=== PATIENT | female | born 1970 | race Caucasian/White ===

== ENCOUNTER → 2021-09-06 13:47 | Outpatient (CLI) | payer MEDICAID, SELFPAY | PROVIDERS: PCP Family Medicine; Visit Provider Specialist | DX: G47.33 Obstructive sleep apnea (adult) (pediatric) (principal) | CPT/HCPCS: G0399 ==

== ENCOUNTER → 2022-01-20 20:02 | Outpatient (CLI) | payer MEDICARE, MEDICAID, SELFPAY | PROVIDERS: PCP Family Medicine; Visit Provider Nurse Practitioner Family | DX: G47.33 Obstructive sleep apnea (adult) (pediatric) (principal); R09.02 Hypoxemia | CPT/HCPCS: 95811 ==

== ENCOUNTER 2024-01-08 12:38 | Outpatient (CLI) | payer MEDICARE, MEDICAID, SELFPAY ==
--- NOTE | 2024-01-08 12:47 | XR_ITS ---
FINAL REPORT CLINICAL HISTORY: Foot pain FINDINGS: RIGHT FOOT 3 views of the right foot were obtained. There is no acute fracture or dislocation. There is a minimal plantar spur. Visualized joint spaces are normally aligned. Soft tissues are unremarkable. IMPRESSION: No acute bony abnormality. Reviewed, Interpreted and Dictated by Constantino Merlos MD Transcribed by Erin Valle Authenticated and [facility]
--- NOTE | 2024-01-08 12:47 | XR_ITS ---
FINAL REPORT CLINICAL HISTORY: Foot Pain FINDINGS: LEFT FOOT Three views of the left foot demonstrate no acute fracture or dislocation. The visualized joint spaces are normally aligned. There is a minimal plantar spur. The soft tissues are unremarkable. IMPRESSION: No acute bony abnormality. Reviewed, Interpreted and Dictated by Constantino Merlos MD Transcribed by Erin Valle Authenticated and [facility]
== END 2024-01-08 23:59 ==
LOC: RAD 12:43
PROVIDERS: PCP Family Medicine; Visit Provider Podiatrist
DX: M79.671 Pain in right foot (principal); M79.672 Pain in left foot
CPT/HCPCS: 73630

== ENCOUNTER 2024-03-07 11:50 | Outpatient (CLI) | payer MEDICARE, MEDICAID, SELFPAY ==
[2024-03-07] VITALS (7 sets, daily range): BP systolic 98–155; BP diastolic 50–101; PULSE 47–86; RESP 18–22; O2SAT 92–95; BMI 50.5
--- NOTE | 2024-03-07 11:50 | CT_ITS ---
APPROVED REPORT Chain Splitter: CLINICAL INDICATION Chest Pain TECHNIQUE Image Acquisition: A 128 slice MDCT scanner (ContaAzula View) was used for data acquisition. A noncontrast coronary calcium scan was performed. A CT attenuation threshold of 130 Hounsfield units (HU) was used for the detection of calcium in contiguous voxels of 1 sq mm in area to be counted as individual lesions. Bolus tracking in the ascending aorta with a threshold of 180 HU was performed. Immediately afterwards, ECG synchronized cardiac CT was then performed from the cardiac base to apex using retrospective gating with ECG tube current modulation. A total of 85 mL of Isovue 370 mg/mL contrast medium was administered at 5 mL/sec followed by a saline flush using a biphasic injection protocol. A tube voltage of 120 KVp was used. The patient received the following medications prior to the cardiac CT. 75 mg of oral metoprolol 15 mg of oral ivabradine 0.8 mg of sublingual nitroglycerin The average heart rate at the time of acquisition was 52 bpm and regular. Image Reconstruction Transaxial images were reconstructed at 0.67 mm slide thickness. Data was reviewed interactively on an advanced workstation capable of 2 and 3-dimensional displays in all conventional reconstruction formats, including multiplanar reformations, maximum intensity projections, curved multiplanar reformations, and volume rendered reconstructions. When applicable, selected routine images describing the relevant coronary anatomy and pathology were saved and sent to PACS. Complications None Technical Quality Overall image quality was suboptimal. Coronary artery opacification was suboptimal. Total DLP (Dose-Length Product) is 2750.5 mGy-cm. The reported value represents the total of one or more individual components during the CT acquisition of this date and at this time, and as such, the same value may appear in more than one CT report depending on the interpreting/reporting physicians. COMPARISON None FINDINGS CT Coronary Calcium Scoring LMA (Left Main Artery) = 0 LAD (Left Anterior Descending) = 9 LCX (Left Coronary Circumflex) = 0 RCA (Right Coronary Artery) = 0 Total Calcium Score = 9 using the AJ-130 method. The observed calcium score of 9 is at 88th percentile for subjects of the same age, sex, and race/ethnicity. The interpretation of the calcium heart score is based on the following continuum*: 0 = no calcified plaque detected (risk of coronary artery disease is very low ??? less than 5%) 1-10 = calcium detected in extremely minimal levels (risk of coronary diseases is still low ??? less than 10%) 11-100 = mild levels of plaque detected with certainty (mild or minimal narrowing of heart arteries is likely) 101-400 = definite,at least moderate levels of plaque detected (relatively high risk of a heart attack within 3-5 years) >401-999 = extensive levels of plaque detected (high risk of heart attack, high levels of vascular disease are present, high likelihood of at least one significant coronary narrowing) *The calcium heart score quantifies the burden of coronary calcification/plaque in the coronary arteries. The calcium heart score is not able to evaluate the presence or burden of non-calcified (i.e. soft) plaque. There is no identifiable calcification in the aortic valve, mitral annulus or mitral valve, pericardium, or myocardium. Coronary CT Angiography The coronary arterial system is right dominant. Quantitative Stenosis Grading: Left Main (LM): The left main originates normally from the left sinus of Valsalva. The LM bifurcates into the left anterior descending artery and left circumflex artery. The LM is patent with no evidence of atherosclerosis. Left Anterior Descending (LAD) and Diagonal Branches: The LAD gives off 2 diagonal branches. There is calcification noted in the proximal LAD segment, but no evidence of luminal stenosis. There is no evidence of LAD-myocardial bridge. Left Circumflex (LCX) and Obtuse Marginals (OM): The LCX gives off 1 Obtuse Marginal (OM) branch. The LCX and its branches are patent with no evidence of atherosclerosis. Right Coronary Artery (RCA): The RCA originates normally from the right sinus of Valsalva. The RCA gives off a posterior descending artery (PDA) and posterolateral (PL) branches. The RCA and its branches are patent with no evidence of atherosclerosis. Non-Coronary Cardiac Findings: Analysis of the left ventricular (LV) structure and function was performed after 3-D reconstruction of the LV from axial images, with user-corrected automatic contouring for assessment of LV volumes and user-defined reconstruction from oblique planes for measurement of 3-D cardiac structure and function. -The left ventricle systolic function is normal. -There is no left atrial appendage filling defect. Two right pulmonary veins and two left pulmonary veins drain normally into the left atrium. -No pericardial thickening or calcification. -Central and branch pulmonary arteries in the [id number] are unremarkable. -Thoracic aorta within the visualized thoracic aortic-branches in the [id number] is unremarkable. Extracardiac Structures No significant extra-cardiac findings. Note, however, that this study is focused on the cardiac findings. IMPRESSION -Suboptimal diagnostic quality due to inadequate IV contrast opacification -Coronary calcification with an Agatston score = 9 using the AJ-130 method. -The observed calcium score of 9 is at 88th percentile for subjects of the same age, sex, and race/ethnicity. -No evidence of significant flow-limiting atherosclerosis of the coronary arteries. -CAD-RADS 1. Management recommendations per ACC/AHA guidelines*, as clinically appropriate. *Recommendations: CAD RADS 0: Reassurance. Consider non-atherosclerotic causes of chest pain. CAD RADS 1: Consider non-atherosclerotic causes of chest pain. Consider preventive therapy and risk factor modification. CAD RADS 2: Consider non-atherosclerotic causes of chest pain. Consider preventive therapy and risk factor modification, particularly for patients with nonobstructive plaque in multiple segments. CAD RADS 3: Consider further functional testing. Consider symptom-guided anti-ischemic and preventive pharmacotherapy as well as risk factor modification per published guideline statements. CAD RADS 4A: Consider further functional testing or invasive coronary angiography with revascularization per published guideline statements. Consider symptom-guided anti-ischemic and preventive pharmacotherapy as well as risk factor modification per published guideline statements. CAD RADS 4B: Invasive coronary angiography recommended with revascularization per published guideline statements. Consider symptom-guided anti-ischemic and preventive pharmacotherapy as well as risk factor modification per published guideline statements. CAD RADS 5: Consider invasive angiography and/or viability assessment with revascularization per published guideline statements. Consider symptom-guided anti-ischemic and preventive pharmacotherapy as well as risk factor modification per published guideline statements. CRITICAL RESULT None COMMUNICATION Per this written report The coronary and cardiac findings of this CCTA were reviewed, reported, and signed by Hair Frausto MD (Web Design Intern) Conclusion Electronically signed by : Heidi Frausto MD 03/12/2024 13:05:19
[2024-03-07] MEDS: METOPROLOL TARTRATE 50MG TABLET 50 MG (12:11)
[2024-03-07] MEDS: IVABRADINE HCL 7.5MG TABLET *IVABRADINE+METOPROLOL REGIMINE 15 MG PO (12:11)
[2024-03-07] MEDS: METOPROLOL TARTRATE 25MG TABLET *IVABRADINE+METOPROLOL REGIMINE 25 MG PO (12:11)
[2024-03-07 12:23] LABS: Chloride 110 mmol/L (98-107); Potassium 3.9 mmoL/L (3.5-5.1); Sodium 139 mmol/L (136-145)
[2024-03-07 12:26] LABS: Blood Urea Nitrogen 8 mg/dl (7-17); Creatinine Clearance Estimated 105 mL/min (50-200); Estimated Glomerular Filt Rate 130 ml/min (>60); GFR (African American) 157 ML/MIN (>60)
[2024-03-07 12:27] LABS: Anion Gap 8.9 mEq/L (5-15); Calcium 8.5 mg/dl (8.4-10.2); Carbon Dioxide 24 mmol/L (22.0-30.0); Glucose 212 mg/dl (74-100)
[2024-03-07] MEDS: 0.9 % SODIUM CHLORIDE 50 ML VIAL IV (13:18)
[2024-03-07] MEDS: SODIUM CHLORIDE 0.9% 10ML SYR (RAD ONLY) 10 ML IV (13:18)
[2024-03-07] MEDS: IOPAMIDOL-370 (76%);100ML BOTTLE 85 ML IV (13:18)
[2024-03-07] MEDS: NITROGLYCERIN 0.4MG SL TABLET 0.800000000000000044 MG SL (13:26)
== END 2024-03-07 14:01 | disposition home or self-care (01) ==
PROVIDERS: PCP Family Medicine; Visit Provider Physician Assistant
DX: R06.09 Other forms of dyspnea (principal); R00.2 Palpitations; R94.31 Abnormal electrocardiogram [ECG] [EKG]; Z82.49 Family history of ischemic heart disease and other diseases of the circulatory system; E78.5 Hyperlipidemia, unspecified; I10 Essential (primary) hypertension; G47.33 Obstructive sleep apnea (adult) (pediatric); Z68.43 Body mass index [BMI] 50.0-59.9, adult; Z87.891 Personal history of nicotine dependence; R07.9 Chest pain, unspecified
CPT/HCPCS: 75571; 75574; 80048; 93306; Q9967

== ENCOUNTER 2024-06-03 10:41 | Outpatient (CLI) | payer MEDICARE, MEDICAID, SELFPAY ==
--- NOTE | 2024-06-03 10:45 | US_ITS ---
FINAL REPORT CLINICAL HISTORY: Decreased Pedal Pulses, current smoker, HTN, DM, HLD, bilateral claudication, bilateral rest pain, obesity, rednnes LLE. COMPARISON: None FINDINGS: ANKLE-BRACHIAL PRESSURE INDICES Pressure indices are as follows: RIGHT LOWER EXTREMITY: Ankle-brachial pressure index: 1.15 Comments: Normal LEFT LOWER EXTREMITY: Ankle-brachial pressure index: 1.1 Comments: Normal CONCLUSION: No evidence of significant obstructive peripheral vascular disease of the lower extremities Reviewed, Interpreted and Dictated by Irais Aguiar MD Transcribed by Deidra Streeter Authenticated and [facility]
== END 2024-06-03 23:59 | disposition home or self-care (01) ==
LOC: RT 10:41
PROVIDERS: PCP Family Medicine; Visit Provider Nurse Practitioner
DX: R09.89 Other specified symptoms and signs involving the circulatory and respiratory systems (principal)
CPT/HCPCS: 93923

== ENCOUNTER 2024-09-11 09:59 | Outpatient (CLI) | payer MEDICARE, MEDICAID, SELFPAY | END 2024-09-11 23:59 | disposition home or self-care (01) | LOC: RT 10:01 | PROVIDERS: PCP Family Medicine; Visit Provider Specialist | DX: R06.09 Other forms of dyspnea (principal); G47.34 Idiopathic sleep related nonobstructive alveolar hypoventilation | CPT/HCPCS: 94762 ==

== ENCOUNTER 2024-10-11 08:00 | Outpatient (RCR) | payer MEDICARE, MEDICAID, SELFPAY ==
--- NOTE | 2024-09-05 12:51 | HMH.PTOPWND ---
Rehab Outpt Wound Evaluation Rehab OP Wound Evaluation Start: 09/05/24 11:04 Freq: Status: Active Protocol: Document 09/05/24 12:37 PHOHUY (Rec: 09/05/24 12:51 PHORNE [id number]) E-signed By Raghu Funes, PT Subjective/History History History This is the initial PT eval for Nessa Garcia, 54 yowf who presents with c/o B LE increased edema x ~3-4 yrs overall. She reports edema is consistently worse in the evening and better in the morning after legs are elevated at night. She reports increased tenderness, redness , warmth, and itchiness of the skin throughout B lower legs. She reports PMH of YESSY, HLD, HTN, DM, anxiety, depression, L LE DVTs, OA. She had MARLEY performed which showed no concern for PAD. Subjective Subjective Pain currently 6/10 in B LE, at worst 10/10. Moderate erythema to B lower legs, Mild increased warmth, mild hyperkeratosis, mild lipodermatosclerosis. 3/4 TTP to B lower legs noted. New diagnosis of cancer in past 12 No months? Lymphedema Eval Classification of Lymphedema Secondary Lymphedema Yes: likely CVI Stemmer's sign Stemmer's Sign yes Stage of Lymphedema Lymphedema stages Stage II (Pitting edema, increased fibrosis w/ decreased pitting) Skin Changes Dry Skin Yes Taut, Shiny Skin Yes Hyperkeratosis Yes Redness Yes Discoloration of Skin Yes Other Changes Yes Pain Scale Pain Scale (0-10) 6 Affected Extremities Areas Affected by Lymphedema/Edema Right Lower Extremity,Left Lower Extremity Lower Extremity Measurements Right MTP Measurement (cm) 23.7 Heel Measurement (cm) 32.5 10 cm Proximal to Lateral Malleoli 27.8 Measurement (cm) 20 cm Proximal to Lateral Malleoli 44.1 Measurement (cm) 30 cm Proximal to Lateral Malleoli 44.9 Measurement (cm) 40 cm Proximal to Lateral Malleoli 0 Measurement (cm) 50 cm Proximal to Lateral Malleoli 0 Measurement (cm) 60 cm Proximal to Lateral Malleoli 0 Measurement (cm) Lower Extremity Measurement Total (cm) 173.0 Left MTP Measurement (cm) 23.2 Heel Measurement (cm) 31.7 10 cm Proximal to Lateral Malleoli 29.2 Measurement (cm) 20 cm Proximal to Lateral Malleoli 43.5 Measurement (cm) 30 cm Proximal to Lateral Malleoli 44.2 Measurement (cm) 40 cm Proximal to Lateral Malleoli 0 Measurement (cm) 50 cm Proximal to Lateral Malleoli 0 Measurement (cm) 60 cm Proximal to Lateral Malleoli 0 Measurement (cm) Lower Extremity Measurement Total (cm) 171.8 Manual Lymphatic Drainage Treatment Area MLD Treatment Area Right Lower Extremity,Left Lower Extremity Wound Problems/Impairments Impairments Problems/Impairmments Palpation Tenderness,Impaired Walking,Impaired Standing, Impaired Household Care, Increased Edema,Lymphedema Present,Subjective C/O Pain, Impaired Self Care/Self Management Prognosis Rehab Potential Good Comment Skilled therapy is indicate to reduce overall edema and pain and return pt to PLOF Clinical Impression Consistent with Diagnosis Yes Short Term Goals Number of Weeks 2 Decreased Palpation Tenderness Yes: 12/24 B lower legs Decrease Edema Yes: no pitting edema Decrease Subjective C/O Pain Yes: 02/27 B lower legs Patient to Understand Lymphedema Yes Treatment and Exercises Decrease Girth Measurments by (cm) Yes: B LE total by 3 cm ea Residential Goals Number of Weeks 4 Decreased Palpation Tenderness Yes: 11/23 B lower legs Decrease Lymphedema Yes: No fibrotic edema B LE Decrease Subjective C/O Pain Yes: 12/30 B lower legs Patient to be Ind w/ HEP Yes Patient to Adhere Lymphedema Precautions Yes Decrease Girth Measurments by (cm) Yes: B LE total by 15 cm ea Outpatient Therapy Plan of Care Treatment Plan May Include Therapeutic Exercise Including Home Yes Exercise Program Manual Therapy Techniques Yes Neuromuscular Re-education Yes Therapeutic Activities to Return to Yes Previous Functional/Work Level ADL/Self Care Education Yes Orthotics/Bracing/Splinting Yes Vasopneumatic Compression Pump Yes Manual Lymphatic Drainage Yes Eval/Re-Eval Yes Frequency Times per week 2 Duration Number of Weeks 4 Addendums This patient is a candidate for social No or vocational rehab? Patient/Guardian verbally acknowledges Yes understanding of treatment program and consents to further treatment? Patient/Guardian verbally acknowledges Yes understanding of diagnosis, prognosis and goals for treatment? Eval Complexity PT Charges 81498 - High Complexity PHYSICIAN CERTIFICATION: I certify the specified therapy services for Nessa Jose are required, authorized, and reviewed every 30 days.
--- NOTE | 2024-10-03 16:46 | HMH.RHREAS ---
Rehab Reassessment Rehab OP Re-assessment Start: 09/05/24 11:04 Freq: Status: Active Protocol: Document 10/03/24 16:28 NOREEN (Rec: 10/03/24 16:45 PHORNE [id number]) E-signed By Raghu Funes, PT Rehab Re-assessment Subjective Subjective Pt reports she has significantly less feelings of pain, tenderness, and heaviness in B LE at this time . Objective Objective Notes Circumferential Measurements: R LE total is 159.3 cm total which is -13.7 cm since IE. L LE total is 161.1 cm total which is - 10.7 cm since IE. Pain: 3/10 at worst B LE TTP: 1/ B lower legs. Edema: No pitting edema to Blower legs this date. Skin: Moderate erythema remains to B lower legs. Assessment Progress Assessment Progressing as Expected Assessment Notes Pt has shown significant reduction of B LE edema based on circumferential measurements. She has less pain overall and significantly less tenderness to palpation. She continues to have B LE heaviness at times which limits her mobility somewhat. She continues to need skilled therapy services to reduce overall edema and return to PLOF. Patient goals met ST/5 LT/6 Plan Plan Continue per initial POC. Frequency of Therapy 1-2 x/wk Duration of therapy 4 wks Time and Billing Re-Eval Time 10 Re-Eval Billing Units 0 Charge for PT reassessment? No PHYSICIAN CERTIFICATION: I certify the specified therapy services for Nessa Garcia are required, authorized, and reviewed every 30 days.
== END 2024-10-11 23:59 | disposition home or self-care (01) ==
LOC: PT 08:00
PROVIDERS: Visit Provider Nurse Practitioner
DX: I89.0 Lymphedema, not elsewhere classified (principal)
CPT/HCPCS: 97110; 97140; 97163

== ENCOUNTER → 2024-11-26 11:56 | Outpatient (CLI) | payer MEDICARE, MEDICAID, SELFPAY | LOC: RT 11:57 → SL 12:00 | PROVIDERS: PCP Family Medicine; Visit Provider Specialist | DX: G47.34 Idiopathic sleep related nonobstructive alveolar hypoventilation (principal); G47.33 Obstructive sleep apnea (adult) (pediatric); I10 Essential (primary) hypertension; Z68.43 Body mass index [BMI] 50.0-59.9, adult | CPT/HCPCS: 94762 ==

== ENCOUNTER 2025-02-07 13:38 | Outpatient (CLI) | payer MEDICARE, MEDICAID, SELFPAY ==
--- NOTE | 2025-07-23 13:21 | PC.NURSE ---
NOT ENOUGH DATA ON OVERNIGHT PULSE OX - NO CHARGE
== END 2025-02-07 23:59 | disposition home or self-care (01) ==
LOC: RT 02-10 13:39
PROVIDERS: PCP Specialist; Visit Provider Specialist
DX: G47.34 Idiopathic sleep related nonobstructive alveolar hypoventilation (principal)

== ENCOUNTER 2025-04-09 13:58 | Outpatient (CLI) | payer MEDICARE, MEDICAID, SELFPAY ==
[2025-04-09 14:59] LABS: Basophils # 0.1 K/mm3 (0-0.2); Basophils % 0.7 % (0.1-2.0); Eosinophils # 0.2 Kmm3 (0.0-0.4); Eosinophils % 2.4 % (0.1-12.0); Hematocrit 44.2 % (37.0-47.0); Hemoglobin 14.9 g/dL (12.2-16.2); Immature Granulocytes # 0.03 10^3uL; Immature Granulocytes % 0.3 %; Lymphocytes # 2.9 K/mm3 (0.7-4.5); Lymphocytes % 32.7 % (10-50); Mean Corpuscular HGB Conc 33.7 g/dL (31.8-35.4); Mean Corpuscular Hemoglobin 32.3 pg (27.0-31.2); Mean Corpuscular Volume 95.7 fl (81-99); Mean Platelet Volume 9.9 fl (7.4-10.4); Monocytes # 0.7 K/mm3 (0.1-1.0); Monocytes % 7.3 % (1.7-9.3); Neutrophils # 5.1 K/mm3 (1.8-7.8); Neutrophils % 56.6 % (37.0-80.0); Nucleated Red Blood Cells # 0 10^3/uL; Nucleated Red Blood Cells % 0 %; Platelet Count 186 K/mm3 (142-424); Red Blood Count 4.62 M/mm3 (4.20-5.40); Red Cell Distribution Width 13.5 % (11.5-17.5); Red Cell Distribution Width-SD 47.7 fL; White Blood Count 8.9 K/mm3 (4.8-10.8)
[2025-04-09 15:31] LABS: Albumin Level 4.2 g/dl (3.5-5.0)
[2025-04-09 15:32] LABS: Chloride 108 mmol/L (98-107); Potassium 4.5 mmoL/L (3.5-5.1); Sodium 139 mmol/L (136-145)
[2025-04-09 15:34] LABS: Alanine Aminotransferase 51 U/L (12-78); Anion Gap 10.5 mEq/L (5-15); Aspartate Amino Transferase 41 U/L (14-36); Bilirubin,Unconjugated 0.3 mg/dL (0.0-1.1); Blood Urea Nitrogen 10 mg/dl (7-17); Carbon Dioxide 25 mmol/L (22.0-30.0); Estimated Glomerular Filt Rate 88 ml/min (>60); GFR (African American) 106 ML/MIN (>60); Total Protein,Serum 6.6 g/dl (6.3-8.2)
[2025-04-09 15:35] LABS: Alkaline Phosphatase 63 U/L (38-126); Bilirubin,Direct 0.2 mg/dl (0.0-0.4); Bilirubin,Indirect 0.3 mg/dL (0.0-0.9); Bilirubin,Total 0.5 mg/dl (0.2-1.3); Calcium 9.3 mg/dl (8.4-10.2); Chol/HDL Ratio 3.5 (1-3.5); Cholesterol 122 mg/dl (140-200); Glucose 261 mg/dl (74-100); HDL Cholesterol 35 mg/dl (40-60); Magnesium 1.6 mg/dl (1.6-2.3); Triglycerides 150 mg/dl (30-150); VLDL Cholesterol 30 mg/dL (0-40)
[2025-04-09 15:47] LABS: Direct LDL Cholesterol 66.21 mg/dL (100-129)
[2025-04-09 15:53] LABS: Free T4 (Free Thyroxine) 0.78 ng/dl (0.78-2.19)
== END 2025-04-09 23:59 | disposition home or self-care (01) ==
LOC: LAB 13:59
PROVIDERS: PCP Family Medicine; Visit Provider Nurse Practitioner Family
DX: I10 Essential (primary) hypertension (principal); Z82.49 Family history of ischemic heart disease and other diseases of the circulatory system
CPT/HCPCS: 36415; 80048; 80061; 80076; 83735; 84439; 84443; 85025

== ENCOUNTER 2025-04-28 13:29 | Outpatient (CLI) | payer MEDICARE, MEDICAID, SELFPAY ==
--- OUTSIDE RECORDS SUMMARY | 2025-04-03 13:20 | XMS_ITS | Encounter Summary ---
Author Organization [facility] Address [address] [place] [address] Care Team Providers Care [employer] Cover[employer] Supervisor Name Role Phone Jerseyro Alessandra Jones Primary Care Provider [phone] Reason for Referral * Consultation (Routine) - Authorized Specialty Diagnoses / Procedures Referred By Edmundo lindo Referred To Contact Diagnoses Type 2 diabetes mellitus with hyperglycemia, with long-term current use of insulin (CMS/HCC) Bernadette Ledesma APRN [address] [facility] [address] [place] [address] Phone: tel: fax: Referral ID Status Reason Start Date Expiration Date V isits Requested Visits Authorized [id number] Authorized 04/03/2025 10/03/2026 1 1 Reason for Visit * Reason Comments Diabetes Encounter Details Date Type Department Care Team (Late Contact Info) Description 04/03/2025 1:20 PM EDT Office Visit [facility] Endocrinology [address] [place] [address] Bernadette Ledesma APRN [address] [place] [address] Type 2 diabetes mellitus with hyperglycemia, with long-term current use of insulin (CMS/HCC) (Primary Dx); Type 2 diabetes mellitus with other specified complication, with long-term current use of insulin (CMS/HCC); Type 2 diabetes mellitus with hyperglycemia (CMS/HCC) Social History Tobacco Use Types Packs/Day Years Used Date Smoking Tobacco: Former Cigarettes 0.5 35.4 S tarted: 1989 Smokeless Tobacco: Never Comments:Quit 01/10 Alcohol Use Standard Drinks/Week Comments No 0 (1 standard drink = 0.6 oz pur e alcohol) PHQ-2 Answer Date Recorded Patient Health Questionnaire-2 Score 0 05/20/2024 PHQ-2A Answer Date Recorded Patient Health Questionnaire-2 Score 0 06/13/2023 Comments No Sex and Gender Information Value Date Recorded Sex Assigned at Not on file Legal Sex Female 7:48 PM EDT Gender Identity Not on file Sexual Orientation Not on file documented as of this encounter Last Filed Vital Signs Vital Sign Reading Time Taken Comments Blood Pressure 119/74 04/03/2025 1:16 PM EDT Pulse 64 04/03/2025 1:16 PM EDT Temperature - - Respiratory Rate - - Oxygen Saturation - - Inhaled Oxygen Concentration - - Weight 118 kg (260 lb 2.3 oz) 04/03/2025 1:16 PM EDT Height 157.5 cm (5' 2 ) 04/03/2025 1:16 PM EDT Body Mass Index 47.58 04/03/2025 1:16 PM EDT documented in this encounter Miscellaneous Notes * Patient Instructions - Bernadette Ledesma, BANKING ANALYST - 04/03/2025 1:20 PM EDT Diabetes Mellitis Type 2, is uncontrolled. Most recent A1c:6.9% Rx changes: ensured refills, Continue Mounjaro 15 mg inject weekly, Continue Metformin XR 500 mg 1 tab BID, reduced Humulin R U 500 inject 50 units breakfast and dinner Continue intensive glucose monitoring via FSL CGM 3. Instructed patient to call [facility] in between appts for questions or concerns and assistance with titration of insulin therapy 4. Education: encouraged to add exercise. 5. Ordered Glucagon kit, Glucose tablets, Ketone strips: Reviewed with patient at time of visit s/s of hypglycemia and how to use rule of 15. If having 3 ormore blood glucose 70 or below, call clinic [phone]. 6. Discussed complications of poorly controlled diabetes and noncompliance- including CVD, Stroke, AL, renal failure, blindness, neuropathy, poor healing, and . Patient and family voiced understanding 7. Recommend Yearly eye exam 8. Follow up 4m 9. Time spent with pt does not include time spent reviewing cgm. * Progress Notes - Bernadette Ledesma APRN - 04/03/2025 1:20 PM EDT Images from the original note were not included. Subjective Nessa Garcia is a 54 y.o. female who presents for an follow up evaluation of Diabetes MellitisType 2. Patient was diagnosed at age 43 . Current symptoms/problems include hyperglycemia. PMH:Neuropathy, HLD, Recurrent chronic UTI, Vaginal yeast infections, stress Incont, Kidney Stones, GERD, Tobacco Abuse ~ 1ppd/20+, HTN, Migraines, Low Back Pain, PE left lung, DVT HPI - last office visit:12/04/2024 -concerns:left knee pain -change in health history:reports stress improved as son is now incarcerated and she knows he is safe. - most recent A1c:6.9% Current treatment includes diet, oral agents, and GLP1/GIP Compliance at present is estimated to be good. - rotating sites: yes abdomen - reports taking~140-180 units rapid acting insulin - Failed medication previously tried for diabetes management:sglt2i= side effect -reports hypoglycemic events:No,frequency: reports awareness of s/s:shaky, treatment: small snack -Severe Hypoglycemic events:No -DKA events: No - ketone strips: Yes, up to date -glucagon/baqsimi kit :Yes, up to date/ Home blood sugar records: glucometer/ FSL/Dexcom CGM Checking blood glucose: continuously Date reviewed:03/21-04/03/2025 CGM Interpretation: avg blood glucose 159, TIR: 78%, High: 21%, Very High:1%Significant Hyperglycemia- between -low: 0% Hypoglycemic occurring post prandial- associated overestimating carb entry and or increased physical activity - most recent eye exam: 2024 -last foot exam: denies any skin concerns. Known diabetic complications: peripheral neuropathy Cardiovascular risk factors: diabetes mellitus, dyslipidemia, hypertension, obesity (BMI >= 30 kg/m2), and sedentary lifestyle Is the patient on TOSHIA inhibitor or angiotensin II receptor jimmie? Yes Is the patient on a StatinYes Current diet: {diet habits:on average, 3 meals per day Pt reported typical meals consist of: meat, vegetable,fruits Current exercise: {exercise types:no regular exercise The following portions of the chart were reviewed this encounter and updated as appropriate: Review of Systems Objective Physical Exam Lab Review POCT Hemoglobin A1C (%) Date Value 12/04/2024 7.3 11/03/2021 9.3 (A) eGFR (mL/min/1.73m*2) Date Value 03/16/2022 >60 eGFR, if AFR/AM (mL/min/1.73m*2) Date Value 03/16/2022 >60 LDL, Calculated (mg/dL) Date Value 03/16/2022 64.4 Triglycerides, Plasma (mg/dL) Date Value 03/16/2022 113 HDL (mg/dL) Date Value 03/16/2022 29 (L) Thyroid Stimulating Hormone, Plasma (uIU/mL) Date Value 05/02/2020 2.24 Lab Results Component Value Date GLUCOSE 281 (H) 03/16/2022 GLUCOSE 291 (H) 05/02/2020 PGLU 231 (H) 11/10/2021 Assessment/Plan Diabetes Mellitis Type 2, is uncontrolled. Most recent A1c:6.9% Rx changes: ensured refills, Continue Mounjaro 15 mg inject weekly, Continue Metformin XR 500 mg 1 tab BID, reduced Humulin R U 500 inject 50 units breakfast and dinner Continue intensive glucose monitoring via FSL CGM 3. Instructed patient to call [facility] in between appts for questions or concerns and assistance with titration of insulin therapy 4. Education: encouraged to add exercise. 5. Ordered Glucagon kit, Glucose tablets, Ketone strips: Reviewed with patient at time of visit s/s of hypglycemia and how to use rule of 15. If having 3 ormore blood glucose 70 or below, call clinic [phone]. 6. Discussed complications of poorly controlled diabetes and noncompliance- including CVD, Stroke, AL, renal failure, blindness, neuropathy, poor healing, and . Patient and family voiced understanding 7. Recommend Yearly eye exam 8. Follow up 4m 9. Time spent with pt does not include time spent reviewing cgm. DM Standards of Care -ACEi/ARB: + -Statin: + -Eye exam: -Neuropathy: (+); encouraged daily foot checks -Vaccines: (+) flu, (-) PPSV, (-) COVID Complications & Preventative Care: - Encouraged patient to schedule annual eye exam. Follow up: 3m - encouraged patient to contact clinic sooner if experiences increase in hypo or hyperglycemia The following Diabetes education was reviewed: [x]Site rotation [x] Exercise impact on glucose levels [x]Driving safety related to diabetes []Sick day management [x]Ketone testing [x]Over treatment of hypoglycemia [x] Hypoglycemia management []Call-in line use []Insulin pump pros and cons []Sensor home use []Pump class offerings []Ama phenomena []Somogyi effect [] Alcohol related to diabetes []Benefits of written records [x]Pre-meal Bolusing [x]Daily foot care [x] Healthy diet and regular exercise []Long-term complications related to poor diabetes management [x] Injection timing related to changes in activity/exercise #HTN -Controlled/uncontrolled, bp today: 119/74 -continue antihypertensives as prescribed, recommend daily checks - reviewed the impact diet and exercise have on bp management # Hyperlipidemia Cholesterol recommendations as follows: -Continue on statin, due to increased LDL, low HDL due to overall ASCVD elevated risk. - pt reports compliance and no myalgias -Will continue to monitor Cholesterol levels -Encouraged healthy lifestyle modifications->diet and exercise. -The AHA/ACC guidelines stress the importance of lifestyle modifications to lower cardiovascular disease risk. This includes eating a heart-healthy diet, regular exercises, maintenance of desirable body weight and avoidance of tobacco products. # BMI:47 Obesity recommendations: -low-calorie diet, avoid processed foods, fast food. -lifestyle modification with exercise and diet, - Clinically meaningful weight loss (>=5% initial weight) is associated with improvement in blood pressure (BP), LDL-C, triglycerides, and glucose levels I personally spent a total of 20 minutes on this encounter. This time includes face to face with patient, counseling and discussion and/or coordination of care. documented in this encounter Plan of Treatment Upcoming Encounters Date Type Department Care Team (Late st Contact Info) Description 07/24/2025 2:20 PM EDT Office Visit [facility] Endocrinology [address] [place], [place] [id number] Bernadette Ledesma, BANKING ANALYST [address] [place] [address] Scheduled Referrals Name Type Priority Associated Diagnoses Orde r Schedule Follow Up [facility] Outpatient Referral Routine Type 2 diabetes mellitus with hyperglycemia, with long-term current use of insulin (CMS/HCC) Expected: 08/04/2025 (Approximate), Expires: 05/04/2026 documented as of this encounter Procedures Procedure Name Priority Date/Time Associated Diagnosis Comments POCT GLYCOSYLATED HEMOGLOBIN (HGB A1C) Routine 04/03/2025 5:09 PM EDT Type 2 diabetes mellitus with hyperglycemia, with long-term current use of insulin (CMS/HCC) documented in this encounter Results * POCT glycosylated hemoglobin (Hb A1C) (04/03/2025 5:09 PM EDT) POCT Hemoglobin A1C 6.9 <5.7% Non-Diabet ic % [facility] Kit Lot Number na [facility] Kit Expiration Date na [facility] Blood Venous blood specimen / Unknown 04/03/2025 5:09 PM EDT Bernadette Ledesma BANKING ANALYST POINT OF CARE TEST ENTER/MOHIT T ORDERABLES Final Result [facility] [address] [place] [address] documented in this encounter Visit Diagnoses Diagnosis Type 2 diabetes mellitus with hyperglycemia, with long-term current use of insulin (CMS/HCC)- Primary Type 2 diabetes mellitus with other specified complication, with long-term current use of insulin (CMS/HCC) Type 2 diabetes mellitus with hyperglycemia (CMS/HCC) documented in this encounter Additional Health Concerns Assessment Noted Time A fall risk assessment has been complete d for the patient 05/20/2024 9:03 AM EDT A Body Mass Index follow-up plan has been documented for the patient 04/03/2025 1:52 PM EDT documented as of this encounter Care Teams [employer] Supervisor Relationship Specialty Start Date End Date Alessandra Garza DO [address] [place] [address] PCP - General 04/02/21 documented as of this encounter
--- NOTE | 2025-04-28 13:45 | CA_ITS ---
APPROVED REPORT EXAM: Comprehensive 2D, Doppler, and color-flow Echocardiogram [employer]el Machine Operator: Lauren Vance RVT Ht: 5 ft 2 in Wt: 259lbs BSA: 2.13 BP: 136/56 mmHg Indications: Abnormal ECG 2D Dimensions LA Volume 40.30 mL LA Volume Index 18.83 mL/m2 (M/F) 16-34 M-Mode Dimensions RVDd 2.71 cm (0.9-2.6) LA Diam 3.93 cm (1.9-4.0) LVDd 5.30 cm (3.5-5.7) LVDs 3.39 cm (3.5-5.7) IVSd 1.36 cm (0.6-1.1) PWd 0.81 cm (0.6-1.1) EF (Teich) 65.20% FS 36.00% EDV (Teich) 135.30 mL TAPSE 2.58 (<1.7) ESV (Teich) 47.10 mL LV Diastology E Decel Time 207 (160-240 msec) E/A Ratio 1.1 Aortic Valve CODY Index 1.61 cm2/m2 AoV Peak Heri. 140.0 (50-130 cm/s) AO Peak GR. 7.90 mmHg AO Mean GR. 4.30 (<5 mmHg) AO VTI 29.8 (18-25 cm) CODY (VTI) 3.52 (2.5-4.5 cm2) Mitral Valve MV E Max Heri. 92.0 (40-130 cm/s) MV A Velocity 87.0 (40-130 cm/s) E/A Ratio 1.05 MV PHT 61.0 ms Pulmonary Valve PV Peak Velocity 91.0 (50-150 cm/s) Tricuspid Valve TR P. Velocity 228.00 cm/s RAP Estimate 10.00 mmHg RVSP 30.90 mmHg Left Ventricle The left ventricle is normal size. The left ventricular systolic function is normal. The left ventricular ejection fraction is within the normal range. There is increased LV wall thickness. There is normal LV segmental wall motion. The left ventricular diastolic function is normal. LVEF is 55%. Right Ventricle The right ventricle is normal size. The right ventricular systolic function is normal. Atria The left atrium is mildly dilated. Right atrium is mildly dilated. There is no Doppler evidence of interatrial shunt. Aortic Valve Aortic valve is mildly thickened. There is no aortic valvular stenosis. Trace aortic regurgitation. Mitral Valve The mitral valve is normal in structure. No evidence of mitral valve stenosis. Mitral regurgitation. Tricuspid Valve Tricuspid valve is grossly normal in structure and function. Trace tricuspid regurgitation. There is insufficient TR jet to estimate RVSP. Pulmonic Valve The pulmonary valve is normal in structure. Trace pulmonic regurgitation. Great Vessels The aortic root is normal in size. IVC is normal in size and collapses >50% with inspiration. Pericardium There is no pericardial effusion. Other Information Study Quality: Fair Conclusion Normal biventricular systolic function. Mild biatrial dilation. No significant valvular stenosis or regurgitation. Electronically signed by : Heidi Frausto MD 05/06/2025 13:39:59
--- OUTSIDE RECORDS SUMMARY | 2025-04-28 13:48 | XMS_ITS | Encounter Summary ---
Author Organization [facility] In iatives Address [address] [place] [address] Care Team Providers Care Line Assembler Name Role Phone Unavailable Primary Care Provider Unavailabl e Encounter Details Date Type Department Care Team ([facility] st Contact Info) Description 08/05/2021 Transcribed Document [facility] Family Medicine [address] [place] [id number] ProviderAl MD [address] [place] [address] [id number] Social History Tobacco Use Types Packs/Day Years Used Date Smoking Tobacco: Never Assessed Comments Unknown Sex and Gender Information Value Date Recorded Sex Assigned at Not on file Legal Sex Female 6:11 PM CDT Gender Identity Not on file Sexual Orientation Not on file documented as of this encounter Miscellaneous Notes * Cerner Conversion Note - Al ProviderMD - 08/05/2021 10:27 AM CDT TIGIST Main OR IntraOp Summary Primary Physician: DIANA ZAPIEN JR, MD-PLA Finalized Date/Time: 08/05/21 10:43:27 Pt. Name: NESSA HAWTHORNE RABIA PenaB./Sex: 1970 Female Med Rec #: [id number] Physician: DIANA ZAPIEN JR, MD-PLA Financial #: [id number] Pt. Type: O Room/Bed: Admit/Disch: 08/05/21 07:20:00 - Institution: [facility] IntraOp Case Attendance Entry 1 Entry 2 Entry 3 Case Attendee DIANA ZAPIEN JR, LUIZA GREER, POWDER BLENDER-ANS OTHER, ATTENDEE JOSE Role Performed Surgeon/Proceduralist, POWDER BLENDER/Nurse First Aid Teacher Student First Time In 08/05/21 10:11:00 08/05/21 10:11:00 08/05/21 10:11:00 Time Out 08/05/21 10:43:00 08/05/21 10:43:00 08/05/21 10:43:00 Procedure Finger Trigger Release Finger Trigger Release Finger Trigger Release Other Attendee ALICJA PEDRAZA Superficial Wound Closed By: Last Modified By: Herson Dick, Herson Dick, Herson Dick, Rn-Traveler 08/05/21 Rn-Traveler 08/05/21 Rn-Traveler 08/05/21 10:43:24 10:43:24 10:43:24 Entry 4 Entry 5 Case Attendee MARLYN BURTON ST Shaffer, Andrea L, Rn-Traveler Role Performed Scrub, First Teacher Learning Disabled, First Time In 08/05/21 10:11:00 08/05/21 10:11:00 Time Out 08/05/21 10:43:00 08/05/21 10:43:00 Procedure Finger Trigger Release Finger Trigger Release Other Attendee Superficial Wound Closed By: Last Modified By: Herson Dick Shaffer, Andrea L, Rn-Traveler 08/05/21 Rn-Traveler 08/05/21 10:43:24 10:43:24 [facility] IntraOp Case Attendance Audit 08/05/21 10:43:24 Rubber Belt Splicer: [id number] Modifier: [id number] <+> Time Out 1 <*> Procedure Finger Trigger Release 2 <+> Time Out 2 <*> Procedure Finger Trigger Release 3 <+> Time Out 3 <*> Procedure Finger Trigger Release 4 <+> Time In 4 <+> Time Out 4 <*> Procedure Finger Trigger Release 5 <+> Time In 5 <+> Time Out 5 <*> Procedure Finger Trigger Release 08/05/21 10:26:52 Rubber Belt Splicer: [id number] Modifier: [id number] <*> Procedure Finger Trigger Release 2 <+> Time In 2 <*> Procedure Finger Trigger Release 3 <+> Time In 3 <*> Procedure Finger Trigger Release <+> 4 Case Attendee <+> 4 Role Performed <+> 4 Procedure <+> 5 Case Attendee <+> 5 Role Performed <+> 5 Procedure [facility] IntraOp Case Times Entry 1 Patient In Room Time 08/05/21 10:11:00 Out Room Time 08/05/21 10:43:00 Anesthesia Start Time 08/05/21 10:11:00 Stop Time 08/05/21 10:43:00 Anesthesia Ready 08/05/21 10:11:00 Surgery / Procedure Times Start Time 08/05/21 10:27:00 Stop Time 08/05/21 10:41:00 Last Modified By: Herson Dick Rn-Traveler 08/05/21 10:43:16 [facility] IntraOp Case Times Audit 08/05/21 10:43:16 Rubber Belt Splicer: [id number] Modifier: [id number] <+> 1 Out Room Time <+> 1 Stop Time 08/05/21 10:41:01 Rubber Belt Splicer: [id number] Modifier: [id number] <+> 1 Stop Time 08/05/21 10:28:12 Rubber Belt Splicer: [id number] Modifier: [id number] <+> 1 Start Time [facility] IntraOp Cautery Entry 1 ESU Identification Cautery Type BiPolar ESU Cautery Type bipolar Comments ID Number [id number] ID Type Hospital Number Cautery Settings Bipolar Setting 20 ESU Grounding Pad Last Modified By: Herson Dick Rn-Traveler 08/05/21 10:27:14 [facility] IntraOp Communication Entry 1 Communication To Family/Significant other Communication By DIANA ZAPIEN JR, MD-[facility] Last Modified By: Herson Dick Rn-Traveler 08/05/21 10:28:17 [facility] IntraOp Counts Verification Entry 1 Procedure Finger Trigger Release Count Info Count Type Sponge, Sharps Counts Verification Baseline/pre-procedure Sequence Count Results Not Applicable Counts Performed By Count Performed By MARLYN BURTON ST (Scrub) Count Performed By Herson Dick (RN) Rn-Traveler Last Modified By: Herson Dick Rn-Traveler 08/05/21 10:28:29 [facility] IntraOp Counts Final Entry 1 Procedure Finger Trigger Release Final Count Info Count Type Sponge, Sharps Counts Verification Skin Closure/end of Sequence procedure Count Results Correct, surgeon notified Counts Performed By Count Performed By MARLYN BURTON ST (Scrub) Count Performed By Herson Dick, (RN) Rn-Traveler Last Modified By: Herson Dick Rn-Traveler 08/05/21 10:28:46 [facility] IntraOp Delays Entry 1 Delay Reason Previous case ran over Duration 6 Minute(s) Last Modified By: Herson Dick Rn-Traveler 08/05/21 10:33:13 [facility] IntraOp Delays Audit 08/05/21 10:33:13 Rubber Belt Splicer: [id number] Modifier: [id number] <+> 1 Duration [facility] IntraOp Departure from OR Entry 1 Integumentary Assessment Integumentary WDL Assessment WDL Transfer/Handoff Transfer to Ambulatory unit, Phase II Handoff Method Bedside/Face to face Post-op Transport Stretcher/Gurney Via Patient Transport Herson Dick, Accompanied by Rn-Traveler, LUIZA GREER CRNA-ANS Last Modified By: Herson Dick Rn-Traveler 08/05/21 10:33:41 [facility] IntraOp Dressing and Packing Entry 1 Type Dressing Location LEFT HAND Wound Dressing Item 4x4's, Adaptic, Coban, Kerlix/Luis Applied By DIANA ZAPIEN JR, MD-GREGG Last Modified By: Herson Dick Rn-Traveler 08/05/21 10:34:09 [facility] IntraOp Fire Risk Assessment Entry 1 Fire Info Surgical Site or 0- No Incision Above the Xyphoid Open O2 Source 1- Yes (Mask or Cannula) Available Ignition 1- Yes (ESU, Laser, Light Source) Fire Risk 2 Assessment Score Fire Score Fire Risk Yes Assessment Complete Fire Risk Herson Dick, Assessment Verified Rn-Traveler By Fire Risk 08/05/21 10:25:00 Assessment Verified Date/Time Fire Risk Standard Fire Yes Safety Precautions Followed Last Modified By: Herson Dick Rn-Traveler 08/05/21 10:35:18 [facility] IntraOp Fire Risk Assessment Audit 08/05/21 10:35:18 Rubber Belt Splicer: [id number] Modifier: [id number] <+> 1 Fire Risk Assessment Verified Date/Time [facility] IntraOp General Case Crating And Moving Estimator 1 Case Information OR OR 06 SJE Case Level 1 Room Verified Yes Wound Class I - Clean Specialty Hand Anesthesia Type MAC ASA Class 3 Diagnosis Preop Diagnosis LEFT TRIGGER THUMB Postop Same As Preop No Postop Diagnosis SEE SURGEON'S OPERATIVE NOTE Last Modified By: Herson Dick Rn-Traveler 08/05/21 10:36:04 [facility] IntraOp Intraoperative Assessment Entry 1 Handoff Method Bedside/Face to face Valid History / Yes Physical in Chart Preoperative Yes Checklist Reviewed/Evaluated Allergies Reviewed Yes Patient is Latex No Sensitive Isolation Not applicable Precautions Noted Level of WDL Consciousness (WDL = Alert, Oriented to Person, Place, and Time) Skin Assessment Yes Verified Present Upon IVs Arrival to OR Last Modified By: Herson Dick Rn-Traveler 08/05/21 10:37:16 [facility] IntraOp Intraoperative Equipment Entry 1 Type Monitoring Equipment Intraop Monitoring Electrocardiogram Three lead placement (ECG) Electrode Placement Blood Pressure Non-Invasive BP Device Source Blood Pressure Arm, right upper Location Pulse Oximeter Hand, right Probe Site Antiembolic Devices Scopes Photo/Video Documentation Last Modified By: Herson Dick Rn-Traveler 08/05/21 10:36:50 S[facility] IntraOp Medication Admin Entry 1 Entry 2 Medication/Irrigant lidocaine 1% Marcaine 0.5% 30ml vial preservative free 30m - [id number] vial - [id number] Combo Med List 1 - Combo Med 1 - Combo Med Time Administered 08/05/21 10:25:00 08/05/21 10:25:00 Route of LOCAL Administration Dose Dose Unit of Measure ml ml Volume 5 5 Administered By DIANA ZAPIEN JR, ONEILL JR, WILLIAM L, MD-GREGG -GREGG Procedure Irrigation Irrigant Volume In Irrigant Volume Out Last Modified By: Herson Dick, Herson Dick Rn-Traveler 08/05/21 Rn-Traveler 08/05/21 10:26:26 10:26:26 S[facility] IntraOp Patient Positioning Entry 1 Procedure Finger Trigger Release Body Position Supine Left Arm Position Held on field Right Arm Position Resting at side Left Leg Position Uncrossed, parallel Right Leg Position Uncrossed, parallel Feet Uncrossed Yes Pressure Points Yes Checked Positioning Devices Pillows, Table, Hand Device Position LEFT ARM PLACED ON HAND TABLE. PT. LEFT ON STRETCHER, PILLOWS UNDER KNEES AND HEAD. Positioned By Herson Dick Rn-ZOEY Henry CALEB, CRNA-ANS Position Verified Positioning Yes Verified by Anesthesia Positioning Yes Verified by Surgeon Last Modified By: Herson Dick Rn-Traveler 08/05/21 10:36:31 S[facility] IntraOp Sign In Entry 1 Patient, Site, Yes Procedure Identified Surgical Consent Yes Confirmed Relevant Surgical Yes Documents Available Surgical Site Yes Marked by person performing procedure Anesthesia Machine Yes Check Completed Medication Checks Yes Completed Allergies Yes Airway Difficult No Airway/Aspiration Risk Difficult Yes Airway/Aspiration Intervention Equipment Available Blood Loss Risk Yes Blood Loss Yes Intervention Equipment Prepared and Ready Blood Identifiers Not applicable Verified Per Policy Hypothermia Risk No Warming Measures Yes Taken Last Modified By: Herson Dick Rn-Traveler 08/05/21 10:36:16 S[facility] Intra Op Sign Out Entry 1 RN Confirmation Surgical Yes Procedure(s) Identified Instrument, Sponge Yes and Sharps Counts Correct/Documented Equipment Problems N/A Documented Specimen Labeled N/A Correctly Urinary Catheter N/A Documented in IView [place] Patient Yes Recovery Concerns Reviewed with Anesthesia Provider, Surgeon and RN [place] Patient Yes Management Concerns Reviewed with Anesthesia Provider, Surgeon and RN Safety Checklist Yes Elements Complete? RN Sign Out Herson Dick, Signature Rn-Traveler RN Sign Out 08/05/21 10:43:00 Signature Date/Time Plan of Care Outcome - Fire Risk OUTCOME STATEMENT: Goal met Patient is free from injury related to surgical fire Plan of Care Outcome - Pt Positioning OUTCOME STATEMENT: Goal met Absence of signs and symptoms of positioning injury. Plan of Care Outcome - Skin Prep OUTCOME STATEMENT: Goal met Intraoperative care is consistent with measures to prevent infection Plan of Care Outcome - Xray/Images OUTCOME STATEMENT: N/A Absence of observable signs or symptoms of radiation injury Plan of Care Outcome - Counts OUTCOME STATEMENT: Goal met Absence of signs and symptoms of injury related to extraneous objects Last Modified By: eHrson Dick Rn-Traveler 08/05/21 10:43:22 S[facility] Intra Op Sign Out Audit 08/05/21 10:43:22 Rubber Belt Splicer: [id number] Modifier: [id number] <+> 1 RN Sign Out Signature Date/Time S[facility] IntraOp Skin Prep Entry 1 Procedure Finger Trigger Release Prescribed Yes Pre-Surgical Prep Completed Prep Area LEFT HAND-CIRCUMFRENTIAL PREP FROM BELOW THE TOURNIQUET DOWN TO AND INCLUDING THE HAND Intraop Prep Integumentary WDL Assessment WDL Prep Agents Chlorhexadine gluconate Prep by Herson Dick Rn-Traveler Hair Removal Last Modified By: Herson Dick Rn-Traveler 08/05/21 10:35:04 S[facility] IntraOp Surgical Procedures Entry 1 Procedure Finger Trigger Release Additional LEFT THUMB TRIGGER Procedure RELEASE Description Primary Procedure Yes Primary Surgeon DIANA ZAPIEN JR, MD-GREGG Start 08/05/21 10:27:00 Stop 08/05/21 10:41:00 Anesthesia Type MAC Specialty Hand Wound Class I - Clean Last Modified By: Herson Dick Rn-Traveler 08/05/21 10:41:05 S[facility] IntraOp Surgical Procedures Audit 08/05/21 10:41:05 Rubber Belt Splicer: [id number] Modifier: [id number] 1 <*> Procedure Finger Trigger Release 1 <+> Stop 08/05/21 10:34:12 Rubber Belt Splicer: [id number] Modifier: [id number] 1 <*> Procedure Finger Trigger Release [facility] IntraOp Time Out Entry 1 Procedure to be Finger Trigger Release Performed Time Out Time Out Pause Time 08/05/21 10:25:00 All activity Yes suspended (unless life threatening emergency) Team Verbally Correct patient Confirms Information identity, Correct side and site are marked, Consent form is present and accurate, Agreement on the procedure to be done, Correct patient position, Confirm antibiotics have been administered, Confirm the skin prep has dried, Performed in location of procedure after prepped/draped Time Out Comment ANCEF 3GM Antibiotic Yes Prophylaxis Administered Or In Progress Within the Last 60 Minutes Beta Piter N/A Administered Venous N/A Thromboembolism Prophylaxis Required Anticipated Critical Events Surgeon None expected Anesthesia Provider None expected Essential Imaging N/A Labeled and Displayed Last Modified By: Herson Dick Rn-Traveler 08/05/21 10:28:06 [facility] IntraOp Tourniquet Entry 1 Type Pneumatic Serial/Unit Number [id number] Setting 250 mmHg Pheumatic Yes Tourniquet Checked Per Protocol Size 18 inches Placement Upper arm, left Skin Protection - Yes Padded Under Cuff Applied By Herson Dick Rn-Traveler Removed By DIANA ZAPIEN JR, MD-GREGG Times Start Time 08/05/21 10:27:00 Stop Time 08/05/21 10:31:00 Last Modified By: Herson Dick Rn-Traveler 08/05/21 10:32:33 S[facility] IntraOp Tourniquet Audit 08/05/21 10:32:33 Rubber Belt Splicer: [id number] Modifier: [id number] <+> 1 Stop Time Case Comments <None> Finalized By: Herson Dick Rn-Traveler Document Signatures Signed By: Herson Dick Rn-Traveler 08/05/21 10:43 Electronically signed by [facility] Conversion Card Boxer Cerner at 03/10/2023 5:45 PM CDT documented in this encounter Plan of Treatment Not on file documented as of this encounter Visit Diagnoses Not on filedocumented in this encounter
--- OUTSIDE RECORDS SUMMARY | 2025-04-28 13:48 | XMS_ITS | Encounter Summary ---
Author Organization Healthcare Address [address] [place] [address] Care Team Providers Care Sales Representative Cash Registers Name Role Phone Alessandra Garza DO Primary Care Provider [phone] Reason for Visit * Reason Comments Med Refill Encounter Details Date Type Department Care Team (Late st Contact Info) Description 05/02/2024 Refill Nadiya Cam Endocrinology [address] [place] [address] Bernadette Ledesma, APPLICATION MANAGER [address] [facility] [address] [place] [address] Social History Tobacco Use Types Packs/Day Years Used Date Smoking Tobacco: Former Cigarettes Q uit: 04/2022 Smokeless Tobacco: Never Comments:Quit 01/10 Alcohol Use Standard Drinks/Week Comments No 0 (1 standard drink = 0.6 oz pur e alcohol) PHQ-2 Answer Date Recorded Patient Health Questionnaire-2 Score 0 06/13/2023 PHQ-2A Answer Date Recorded Patient Health Questionnaire-2 Score 0 06/13/2023 Comments No Sex and Gender Information Value Date Recorded Sex Assigned at Not on file Legal Sex Female 7:48 PM EDT Gender Identity Not on file Sexual Orientation Not on file documented as of this encounter Miscellaneous Notes * Telephone Encounter - Balaji Miller, PharmD - 05/02/2024 7:38 AM EDT Per protocol, 1 medication(s), Mounjaro, has been refused due to: Refill not appropriate Patient will start 7.5 mg Mounjaro dose after finishing the 5 mg prescription documented in this encounter Plan of Treatment Upcoming Encounters Date Type Department Care Team (Late st Contact Info) Description 07/24/2025 2:20 PM EDT Office Visit Nadiya Lara [facility] Endocrinology [address] [place] [id number] Bernadette Ledesma, APPLICATION MANAGER [address] [facility] [address] [place] [address] documented as of this encounter Visit Diagnoses Not on filedocumented in this encounter Additional Health Concerns Assessment Noted Time A fall risk assessment has been complete d for the patient 09/13/2023 1:41 PM EDT A Body Mass Index follow-up plan has been documented for the patient 04/03/2024 3:18 PM EDT documented as of this encounter Care Teams Sales Representative Cash Registers Relationship Specialty Start Date End Date Alessandra Garza DO [address] [place] [address] [place] [address] PCP - General 04/02/21 documented as of this encounter
--- OUTSIDE RECORDS SUMMARY | 2025-04-28 13:48 | XMS_ITS | Data Portability ---
Author Organization [facility] ADMIN Address [address] [place] [id number] Care Team Providers Care Staff Radiologist Name Role Phone LEA PAUL Primary Care Provider Assessment No assessment recorded. Plan of Treatment Reminders Order Date Submit Date Provider Last Modified By Organization Details Last Modified Time Details Appointments OV EST 15 2024 02:15P M Peyton Johnson NP Not available Not available Not available OV EST 15 2024 09:30A M Apolinar Maria Jr, MD Not available Not available Not available Lab nonalcoho lic steatohep atitis + fibrosis panel, serum or plasma 2024 025 [facility] (Lab Registration) , [address] [place] [address] [place], [address], 12/27/2024 08:27:36 hepatic function panel, serum 2024 025 [facility] (Lab Registration) , [address] [place] [address] [place], [address], 12/27/2024 08:27:36 urinalysi s, dipstick 2023 024 [email or web address] [facility] [place], [address] [place] [address], [phone], 08/28/2024 15:16:53 nonalcoho lic steatohep atitis + fibrosis panel, serum or plasma [email or web address] [place] [address] Ctr (Lab Registration) , [address] [place] [address] [place], [address], 06/19/2024 07:42:36 hepatic function panel, serum 2023 024 [email or web address] [facility] (Lab Registration) , [address] [place] [address] [place], [address], 06/19/2024 07:42:36 PT/INR [address] Ctr (Lab Registration) , [address] [place] [address] [place], [address], 03/27/2024 11:13:11 celiac disease comprehen sive panel, serum [address] [facility] (Lab Registration) , [address] [place] [address] [place], [address], 03/27/2024 11:13:11 hepatic function panel, serum [address] [facility] (Lab Registration) , [address] [place] [address] [place], [address], 03/27/2024 11:13:12 gamma-glu tamyl transfera se (ggt), serum [address] [facility] (Lab Registration) , [address] [place] [address] [place], [address], 03/27/2024 11:13:12 igg, quantitat meño, serum [address] [facility] (Lab Registration) , [address] [place] [address] [place], [address], 03/27/2024 11:13:12 hepatitis panel (A+B+C), acute, serum [address] [facility] (Lab Registration) , [address] [place] [address] [place], [address], 03/27/2024 11:13:12 GILBERTO (antinucl ear antibodie s) screen, serum [address] [facility] (Lab Registration) , 175 [facility] [place], [address], 03/27/2024 11:13:12 mitochond rial M2 igg Ab, serum [address] [facility] (Lab Registration) , 175 [facility] [place], [address], 03/27/2024 11:13:13 smooth muscle Ab, serum [address] [facility] (Lab Registration) , [address] [facility] [place], [address], 03/27/2024 11:13:13 alpha-1-a ntitrypsi n (aat) phenotype , serum [address] [facility] (Lab Registration) , [address] [facility] [place], [address], 03/27/2024 11:13:13 iron + TIBC + ferritin, serum [address] [facility] (Lab Registration) , [address] [facility] [place], [address], 03/27/2024 11:13:13 cerulopla smin, serum [address] [facility] (Lab Registration) , [address] [facility] [place], [address], 03/27/2024 11:13:13 hemochrom atosis mutation (hfe), blood/tis cj [address] (Lab Registration) , [address] [place] [address] [place], [address], 03/27/2024 11:13:14 nonalcoho lic steatohep atitis + fibrosis panel, serum or plasma 2023 024 [email or web address] [facility] (Lab Registration) , [address] [place] [address] [place], [address], 03/27/2024 11:13:14 Referral None recorded. Procedures bladder scan (PROC) 2023 024 [email or web address] [facility] [place], [address] [place] [address], [id number], 08/28/2024 15:16:53 colonosco py procedure (PROC) 2023 024 [email or web address] Gama Clayton MD, [address] [place] [address] Enriqueta Hol[place] [facility] [place], [address], 03/21/2024 13:43:38 Surgeries None recorded. Imaging US, liver 2024 025 [facility] (Central Scheduling), [address] [place] [address] [place], [address], 01/01/2025 08:55:43 US, elastogra m 2024 025 [id number] [facility] (Central Scheduling), [address] [place] [address] [place], [address], 01/01/2025 08:10:55 US, liver 2023 024 [facility], [address] [place] [address], [facility] F, [place], [address], 04/20/2024 14:57:28 Medication Orders nitrofura ntoin macrocrys jamil 50 mg capsule 2024 025 [facility]/Pharmacy #[id number], [address] [place], [address], 03/12/2025 11:49:48 hydrocort isone acetate 25 mg rectal supposito ry [address]/Pharmacy #3016, [address] [place], [address], 12/19/2024 22:06:08 famotidin e 40 mg tablet 2024 025 [facility] [address] [place], [address], 12/18/2024 13:46:15 methenami ne hippurate 1 gram tablet 2023 024 [facility] [address] [place], [address], 08/28/2024 14:39:01 ascorbic acid (vitamin C) 500 mg tablet 2023 024 [facility] [address] [place], [address], 08/28/2024 14:39:00 Intrarosa 6.5 mg vaginal insert 2023 [facility] [address] [place], [address], 12/18/2024 13:29:27 famotidin e 40 mg tablet 2023 024 [facility] [address] [place], [address], 06/12/2024 12:18:31 Patient TargetsNo targets recorded. Patient InstructionsNo instructions recorded. Reason for Referral None Reported. Results Created Date Observation Date Name Description Value Unit Range Abnormal Flag Note LastModifiedBy Organization Detail LastModifiedTime 04/20/2004/20/2024 PT (PROT SCOTTY) W INR protime 10.6 secon ds 9.0-12 .0 Not Available [facility] (Pre-Op Clinic) [address] [place] [address] [place], [address], 04/20/2024 10:27:11 04/20/20 24 04/20/2024 PT (PROT SCOTTY) W INR INR 1.0 2.0-3. 0 low MONIT OR COUMA DIN THERA PY WITH INR VALUE ONLY. * THERA PEUTI C RANGE S FOR INR 2.0 - 3.0 USUAL THERA PEUTI C RANGE 2.5 - 3.5 FOR PATIE NTS WITH A HISTO RY OF MULTI PLE DEEP VEIN THROM BOLYT IC EVENT S OR MECHA NICAL HEART VALVE . Not Available [facility] (Pre-Op Clinic) [address] [place] [address] [place], [address], 04/20/2024 10:27:11 04/20/20 24 04/20/2024 PT (PROT SCOTTY) W INR note Unles s other robles noted testi ng perfo rmed at: [facility] [address] [place] [address] Gabriel melendez MD Not Available [facility] (Pre-Op Clinic) [address] [place] [address] [place], [address], 04/20/2024 10:27:11 04/20/20 24 04/20/2024 HEPAT IC FUNCT ION PANEL total protein 7.4 g/dL 6.2-8. 2 Not Available [facility] (Pre-Op Clinic) [address] [place] [address] [place], [address], 04/20/2024 10:48:09 04/20/20 24 04/20/2024 HEPAT IC FUNCT ION PANEL albumin 4.1 g/dL 3.5-5. 0 Not Available [facility] (Pre-Op Clinic) [address] [place] [address] [place], [address], 04/20/2024 10:48:09 04/20/20 24 04/20/2024 HEPAT IC FUNCT ION PANEL bilirubin total 0.7 mg/dL 0.2-1. 3 Not Available [facility] (Pre-Op Clinic) [address] [place] [address] [place], [address], 04/20/2024 10:48:09 04/20/20 24 04/20/2024 HEPAT IC FUNCT ION PANEL bilirubin direct 0.40 mg/dL 0.0-0. 3 high Not Available [facility] (Pre-Op Clinic) [address] [place] [address] [place], [address], 04/20/2024 10:48:09 04/20/20 24 04/20/2024 HEPAT IC FUNCT ION PANEL bilirubin indirect 0.30 Not Available [facility] (Pre-Op Clinic) [address] [place] [address] [place], [address], 04/20/2024 10:48:09 04/20/20 24 04/20/2024 HEPAT IC FUNCT ION PANEL AST (SGOT) 53 IU/L 14-36 high Not Available [facility] (Pre-Op Clinic) [address] [place] [address] [place], [address], 04/20/2024 10:48:09 04/20/20 24 04/20/2024 HEPAT IC FUNCT ION PANEL ALT (SGPT) 59 IU/L 0-35 high Pleas e note new refer ence inter cordell for ALT. Due to a recen t manuf actur er metho dolog y diaz e, the refer ence inter cordell for ALT is lower effec tive March 11, 2021. Not Available [facility] (Pre-Op Clinic) [address] [place] [address] [place], [address], 04/20/2024 10:48:09 04/20/20 24 04/20/2024 HEPAT IC FUNCT ION PANEL alk phosphatase 100 IU/L 38-126 Not Available [facility] (Pre-Op Clinic) [address] [place] [address] [place], [address], 04/20/2024 10:48:09 04/20/20 24 04/20/2024 HEPAT IC FUNCT ION PANEL note Unles s other robles noted testi ng [facility]fo [facility]: [facility] [address] [place] [address] Gabriel melendez MD Not Available [facility] (Pre-Op Clinic) [address] [facility] [place], [address], 04/20/2024 10:48:09 04/20/20 24 04/20/2024 GAMMA GT GGT 415 IU/L 5-85 high Not Available [facility] (Pre-Op Clinic) [address] [place] [address] [place], [address], 04/20/2024 10:48:10 04/20/20 24 04/20/2024 GAMMA GT note Unles s other robles noted testi ng perfo rmed at: [facility] [address] [place] [address] Gabriel melendez MD Not Available [facility] (Pre-Op Clinic) [address] [place] [address] [place], [address], 04/20/2024 10:48:10 04/20/20 24 04/20/2024 IRON STUDY W FE/TI BC/UI BC/%S AT iron 84 ug/dL 37-170 Not Available [facility] (Pre-Op Clinic) [address] [place] [address] [place], [address], 04/20/2024 10:58:31 04/20/20 24 04/20/2024 IRON STUDY W FE/TI BC/UI BC/%S AT total iron bind cap. 388 ug/dL 265-49 7 Not Available [facility] (Pre-Op Clinic) [address] [place] [address] [place], [address], 04/20/2024 10:58:31 04/20/20 24 04/20/2024 IRON STUDY W FE/TI BC/UI BC/%S AT unsaturated iron binding cap 304 ug/dL 150-37 5 Not Available [facility] (Pre-Op Clinic) [address] [place] [address] [place], [address], 04/20/2024 10:58:31 04/20/20 24 04/20/2024 IRON STUDY W FE/TI BC/UI BC/%S AT % saturation 22 % 15-55 Not Available [facility] (Pre-Op Clinic) [address] [place] [address] [place], [address], 04/20/2024 10:58:31 04/20/20 24 04/20/2024 IRON STUDY W FE/TI BC/UI BC/%S AT note Unles s other robles noted testi ng perfo rmed at: [facility] [address] [place] [address] Gabriel melendez MD Not Available [facility] (Pre-Op Clinic) [address] [place] [address] [place], [address], 04/20/2024 10:58:31 04/20/20 24 04/20/2024 IGG IMMUN OGLOB ULINS QUANT note Unles s other robles noted testi ng perfo rmed at: [facility] [address] [place] [address] Gabriel melendez MD Not Available [facility] (Pre-Op Clinic) [address] [place] [address] [place], [address], 04/21/2024 08:14:14 04/20/20 24 04/21/2024 IGG IMMUN OGLOB ULINS QUANT immunoglobul in g, qn, serum 1090 mg/dL 586-16 02 Perfo rmed at: [facility] [address] [place] [address] 126 Lab Direc tor: Michael blair PhD, Phone : [phone] Not Available [facility] (Pre-Op Clinic) [address] [place] [address] [place], [address], 04/21/2024 08:14:14 04/20/20 24 04/20/2024 ACUTE VIRAL HEPAT ITIS PANEL note Unles s other robles noted testi ng perfo rmed at: [facility] [address] [place] [address] Gabriel melendez MD Not Available [facility] (Pre-Op Clinic) [address] [place] [address] [place], [address], 04/21/2024 08:14:16 04/20/20 24 04/21/2024 ACUTE VIRAL HEPAT ITIS PANEL hep A Ab, IgM Negati ve negati ve Not Available [facility] (Pre-Op Clinic) [address] [place] [address] [place], [address], 04/21/2024 08:14:16 04/20/20 24 04/21/2024 ACUTE VIRAL HEPAT ITIS PANEL HBsAg screen Negati ve negati ve Not Available [facility] (Pre-Op Clinic) [address] [place] [address] [place], [address], 04/21/2024 08:14:16 04/20/20 24 04/21/2024 ACUTE VIRAL HEPAT ITIS PANEL hep B core Ab, IgM Negati ve negati ve Not Available [facility] (Pre-Op Clinic) [address] [place] [address] [place], [address], 04/21/2024 08:14:16 04/20/20 24 04/21/2024 ACUTE VIRAL HEPAT ITIS PANEL hep C virus Ab Non Reacti ve non reacti ve Perfo rmed at: [facility] [address] [facility] [place], [place] [address] Lab Direc tor: Michael blair PhD, Phone : [phone] Not Available [facility] (Pre-Op Clinic) [address] [place] [address] [place], [address], 04/21/2024 08:14:16 04/20/20 24 04/21/2024 ACUTE VIRAL HEPAT ITIS PANEL interpretati on: Commen t . Not infec sophie with HCV unles s early or acute infec tion is suspe cted (whic h may be delay ed in an immun ocomp romis ed indiv idual ), or other evide nce exist s to indic ate HCV infec tion. Perfo rmed at: [facility] n [address] [facility], [place] [address] Lab Direc tor: Michael blair PhD, Phone : [phone] Not Available [facility] (Pre-Op Clinic) [address] [place] [address] [place], [address], 04/21/2024 08:14:16 04/20/20 24 04/20/2024 JG H MUSCL E (ACTI N) AB'S note Unles s other robles noted testi ng perfo rmed at: [facility] [address] [place] [address] Gabriel melendez MD Not Available [facility] (Pre-Op Clinic) [address] [place] [address] [place], [address], 04/22/2024 11:12:53 04/20/20 24 04/22/2024 JG H MUSCL E (ACTI N) AB'S actin 7 units 0-19 Negat meño 0 - 19 Weak posit meño 20 - 30 Moder ate to stron g posit meño >30 . Actin Antib odies are found in 52-85 % of patie nts with autoi mmune hepat itis or chron ic activ e hepat itis and in 22% of patie nts with prima ry bilia ry cirrh osis. Perfo rmed at: - [facility] [address] [place] [address] Lab Direc tor: Michael blair PhD, Phone : [phone] Not Available [facility] (Pre-Op Clinic) [address] [place] [address] [place], [address], 04/22/2024 11:12:53 04/20/20 24 04/20/2024 MITOC HONDR IAL ANTIB ODIES note Unles s other robles noted testi ng perfo rmed at: [facility] [address] [place] [address] Gabriel melendez MD Not Available [facility] (Pre-Op Clinic) [address] [place] [address] [place], [address], 04/22/2024 11:12:54 04/20/20 24 04/22/2024 MITOC HONDR IAL ANTIB ODIES mitochondria l (M2) antibody <20.0 units 0.0-20 .0 Negat meño 0.0 - 20.0 Equiv ocal 20.1 - 24.9 Posit meño >24.9 . Mitoc hondr ial (M2) Antib odies are found in 90-96 % of patie nts with prima ry bilia ry cirrh osis. Perfo rmed at: [facility] n [address] [facility], [place] [address] [facility] Lab Direc tor: Michael blair PhD, Phone : [phone] Not Available [facility] (Pre-Op Clinic) [address] [place] [address] [place], [address], 04/22/2024 11:12:54 04/20/20 24 04/20/2024 GILBERTO SCREE N W REFLE X note Unles s other rboles noted testi ng perfo rmed at: [facility] [address] [place] [address] Gabriel melendez MD Not Available [facility] (Pre-Op Clinic) [address] [place] [address] [place], [address], 04/22/2024 15:10:56 04/20/20 24 04/22/2024 GILBERTO SCREE N W REFLE X GILBERTO direct POSITI VE negati ve delta Not Available [facility] (Pre-Op Clinic) [address] [place] [address] [place], [address], 04/22/2024 15:10:56 04/20/20 24 04/22/2024 GILBERTO SCREE N W REFLE X anti-DNA (ds) Ab qn <1 IU/mL 0-9 Negat meño <5 Equiv ocal 5 - 9 Posit meño >9 Not Available [facility] (Pre-Op Clinic) [address] [place] [address] [place], [address], 04/22/2024 15:10:56 04/20/20 24 04/22/2024 GILBERTO SCREE N W REFLE X senior business objects developer antibodies >8.0 ai 0.0-0. 9 high Not Available [facility] (Pre-Op Clinic) [address] [facility] [place], [address], 04/22/2024 15:10:56 04/20/20 24 04/22/2024 GILBERTO SCREE N W REFLE X antisclerode rma-70 antibodies <0.2 ai 0.0-0. 9 Not Available [facility] (Pre-Op Clinic) [address] [facility] [place], [address], 04/22/2024 15:10:56 04/20/20 24 04/22/2024 GILBERTO SCREE N W REFLE X sjogrens anti-ss-A <0.2 ai 0.0-0. 9 Not Available [facility] (Pre-Op Clinic) [address] [place] [address] [place], [address], 04/22/2024 15:10:56 04/20/20 24 04/22/2024 GILBERTO SCREE N W REFLE X sjogrens anti-ss-B <0.2 ai 0.0-0. 9 Not Available [facility] (Pre-Op Clinic) [address] [place] [address] [place], [address], 04/22/2024 15:10:56 04/20/20 24 04/22/2024 GILBERTO SCREE N W REFLE X anti chromatin antibodies <0.2 ai 0.0-0. 9 Not Available [facility] (Pre-Op Clinic) [address] [place] [address] [place], [address], 04/22/2024 15:10:56 04/20/20 24 04/22/2024 GILBERTO SCREE N W REFLE X anti-aquiles-1 <0.2 ai 0.0-0. 9 Not Available [facility] (Pre-Op Clinic) [address] [place] [address] [place], [address], 04/22/2024 15:10:56 04/20/20 24 04/22/2024 GILBERTO SCREE N W REFLE X anti-centrom ere B antibodies <0.2 ai 0.0-0. 9 Not Available [facility] (Pre-Op Clinic) [address] [place] [address] [place], [address], 04/22/2024 15:10:56 04/20/20 24 04/22/2024 GILBERTO SCREE N W REFLE X rothman antibodies <0.2 ai 0.0-0. 9 Not Available [facility] (Pre-Op Clinic) [address] [place] [address] [place], [address], 04/22/2024 15:10:56 04/20/20 24 04/22/2024 GILBERTO SCREE N W REFLE X see below: EMMANUEL [facility] [employer] nt[facility]etao dy [facility]a se Assoc iatio n ----- ----- ----- ----- ----- ----- ----- ----- ----- ----- ----- ----- Condi tion Frequ ency ----- ----- ----- ----- - ----- ----- ----- ----- ---- ----- ---- Antin uclea r Antib radha, SLE, mixed conne ctive Direc t (GILBERTO- D) malcom e disea ses ----- ----- ----- ----- - ----- ----- ----- ----- ---- ----- ---- dsDNA SLE 40 - 60% ----- ----- ----- ----- - ----- ----- ----- ----- ---- ----- ---- Chrom atin Drug induc ed SLE 90% SLE 48 - 97% ----- ----- ----- ----- - ----- ----- ----- ----- ---- ----- ---- SSA (Ro) SLE 25 - 35% Sjogr en's Syndr ome 40 - 70% Neona jamil Lupus 100% ----- ----- ----- ----- - ----- ----- ----- ----- ---- ----- ---- SSB (La) SLE 10% Sjogr en's Syndr ome 30% ----- ----- ----- ----- - ----- ----- ----- ----- --- ----- ---- Sm (anti -Zbigniew h) SLE 15 - 30% ----- ----- ----- ----- - ----- ----- ----- ----- --- ----- ---- SILK WORKER Mixed Conne ctive Tissu e Disea se 95% (U1 nRNP, SLE 30 - 50% anti- ribon ucleo prote in) Polym yosit is and/o r [place] tomyo sitis 20% ----- ----- ----- ----- - ----- ----- ----- ----- ---- ----- ---- Scl-7 0 (anti DNA Scler oderm a (diff use) 20 - 35% topoi pola ase) Crest 13% ----- ----- ----- ----- - ----- ----- ----- ----- ---- ----- ---- Aquiles-1 Polym yosit is and/o r [place] tomyo sitis 20 - 40% ----- ----- ----- ----- - ----- ----- ----- ----- ---- ----- ---- Centr omere B Scler oderm a - Crest varia nt 80% Perfo rmed at: [facility] [place] n [address] [facility], [place] [address] Lab Direc tor: Michael blair PhD, Phone : [phone] . Autoa ntibo dy Disea se Assoc iatio n ----- ----- ----- ----- ----- ----- ----- ----- ----- ----- ----- ----- Condi tion Frequ ency ----- ----- ----- ----- - ----- ----- ----- ----- ---- ----- ---- Antin uclea r Antib radha, SLE, mixed conne ctive Direc t (GILBERTO- D) tissu e disea ses ----- ----- ----- ----- - ----- ----- ----- ----- ---- ----- ---- dsDNA SLE 40 - 60% ----- ----- ----- ----- - ----- ----- ----- ----- ---- ----- ---- Chrom atin Drug induc ed SLE 90% SLE 48 - 97% ----- ----- ----- ----- - ----- ----- ----- ----- ---- ----- ---- SSA (Ro) SLE 25 - 35% Sjogr en's Syndr ome 40 - 70% Neona jamil Lupus 100% ----- ----- ----- ----- - ----- ----- ----- ----- ---- ----- ---- SSB (La) SLE 10% Sjogr en's Syndr ome 30% ----- ----- ----- ----- - ----- ----- ----- ----- --- ----- ---- Sm (anti -Zbigniew h) SLE 15 - 30% ----- ----- ----- ----- - ----- ----- ----- ----- --- ----- ---- SILK WORKER Mixed Conne ctive Tissu e Disea se 95% (U1 nRNP, SLE 30 - 50% anti- ribon ucleo prote in) Polym yosit is and/o r [place] tomyo sitis 20% ----- ----- ----- ----- - ----- ----- ----- ----- ---- ----- ---- Scl-7 0 (anti DNA Scler oderm a (diff use) 20 - 35% topoi pola ase) Crest 13% ----- ----- ----- ----- - ----- ----- ----- ----- ---- ----- ---- Aquiles-1 Polym yosit is and/o r [place] tomyo sitis 20 - 40% ----- ----- ----- ----- - ----- ----- ----- ----- ---- ----- ---- Centr omere B Scler oderm a - Crest varia nt 80% Perfo rmed at: [facility] n [address] [facility], [place] [address] Lab Direc tor: Michael blair PhD, Phone : [phone] Not Available [facility] (Pre-Op Clinic) [address] [place] [address] [place], [address], 04/22/2024 15:10:56 04/20/20 24 04/20/2024 CERUL OPLAS MIN note Unles s other robles noted testi ng perfo rmed at: [facility] [address] [place] [address] Gabriel melendez MD Not Available [facility] (Pre-Op Clinic) [address] [place] [address] [place], [address], 04/22/2024 15:10:58 04/20/20 24 04/22/2024 CERUL OPLAS MIN ceruloplasmi n 28.3 mg/dL 19.0-3 9.0 Perfo rmed at: [facility] - [facility] [place] [facility] [address], [place] [address] Lab Direc tor: Michael blair PhD, Phone : [phone] Not Available [facility] (Pre-Op Clinic) [address] [place] [address] [place], [address], 04/22/2024 15:10:58 04/20/20 24 04/20/2024 PATY C DISEA SE COMPR EHENS MEÑO note Unles s other robles noted testi ng perfo rmed at: [facility] [address] [place] [address] Gabriel melendez MD Not Available [facility] (Pre-Op Clinic) [address] [place] [address] [place], [address], 04/22/2024 16:15:42 04/20/20 24 04/22/2024 PATY C DISEA SE COMPR EHENS MEÑO immunoglobul in A, qn, serum 482 mg/dL 87-352 high Perfo rmed at: [facility] - [facility] [place] [facility] [address], [place] [address] Lab Direc tor: Michael blair PhD, Phone : [phone] Perfo rmed at: [facility] - [facility] [place] [address], [place] [address]69 Lab Direc tor: Michael blair PhD, Phone : [phone] Perfo rmed at: [facility] - [facility] [place] [address] [facility], [place] [address] Lab Direc tor: Michael blair PhD, Phone : [phone] Not Available [facility] (Pre-Op Clinic) [address] [place] [address] [place], [address], 04/22/2024 16:15:42 04/20/20 24 04/22/2024 PATY C DISEA SE COMPR EHENS MEÑO deamidated gliadin abs, IgA 10 units 0-19 Negat meño 0 - 19 Weak Posit meño 20 - 30 Moder ate to Stron g Posit meño >30 Negat meño 0 - 19 Weak Posit meño 20 - 30 Moder ate to Stron g Posit meño >30 Not Available [facility] (Pre-Op Clinic) [address] [place] [address] [place], [address], 04/22/2024 16:15:42 04/20/20 24 04/22/2024 PATY C DISEA SE COMPR EHENS MEÑO deamidated gliadin abs, IgG 3 units 0-19 Negat meño 0 - 19 Weak Posit meño 20 - 30 Moder ate to Stron g Posit meño >30 Negat meño 0 - 19 Weak Posit meño 20 - 30 Moder ate to Stron g Posit meño >30 Not Available [facility] (Pre-Op Clinic) [address] [place] [address] [place], [address], 04/22/2024 16:15:42 04/20/20 24 04/22/2024 PATY C DISEA SE COMPR EHENS MEÑO T-transgluta minase (ttg) IgA <2 U/mL 0-3 Negat meño 0 - 3 Weak Posit meño 4 - 10 Posit meño >10 . Tissu e Trans gluta starla e (tTG) has been ident ified as the endom ysial antig en. Studi es have demon str- ated that endom ysial IgA antib odies have over 99% speci ficit y for glute n sensi tive enter opath y. Negat meño 0 - 3 Weak Posit meño 4 - 10 Posit meño >10 . Tissu e Trans gluta starla e (tTG) has been ident ified as the endom ysial antig en. Studi es have demon str- ated that endom ysial IgA antib odies have over 99% speci ficit y for glute n sensi tive enter opath y. Not Available [facility] (Pre-Op Clinic) [address] [place] [address] [place], [address], 04/22/2024 16:15:42 04/20/20 24 04/22/2024 PATY C DISEA SE COMPR EHENS MEÑO T-transgluta minase (ttg) IgG <2 U/mL 0-5 Negat meño 0 - 5 Weak Posit meño 6 - 9 Posit meño >9 Negat meño 0 - 5 Weak Posit meño 6 - 9 Posit meño >9 Not Available [facility] (Pre-Op Clinic) [address] [place] [address] [place], [address], 04/22/2024 16:15:42 04/20/20 24 04/22/2024 PATY C DISEA SE COMPR EHENS MEÑO endomysial antibody IgA Negati ve negati ve Not Available [facility] (Pre-Op Clinic) [address] [place] [address] [place], [address], 04/22/2024 16:15:42 04/20/20 24 04/20/2024 CADET FIBRO SURE PLUS note Unles s other robles noted testi ng perfo rmed at: [facility] [address] [place] [address] Gabriel melendez MD Not Available [facility] (Pre-Op Clinic) [address] [place] [address] [place], [address], 04/24/2024 00:13:08 04/20/20 24 04/24/2024 CADET FIBRO SURE PLUS glucose, serum 281 mg/dL 70-99 high Not Available [facility] (Pre-Op Clinic) [address] [place] [address] [place], [address], 04/24/2024 00:13:08 04/20/20 24 04/24/2024 CADET FIBRO SURE PLUS triglyceride s 194 mg/dL 0-149 high Not Available [facility] (Pre-Op Clinic) [address] [facility] [place], [address], 04/24/2024 00:13:08 04/20/20 24 04/24/2024 CADET FIBRO SURE PLUS cholesterol, total 142 mg/dL 100-19 9 Not Available [facility] (Pre-Op Clinic) [address] [facility] [place], [address], 04/24/2024 00:13:08 04/20/2004/24/2024 CADET FIBRO SURE PLUS AST (SGOT) p5p 49 IU/L 0-40 high Not Available [facility] (Pre-Op Clinic) [address] [facility] [place], [address], 04/24/2024 00:13:08 04/20/2004/24/2024 CADET FIBRO SURE PLUS bilirubin, total 0.2 mg/dL 0.0-1. 2 Not Available [facility] (Pre-Op Clinic) [address] [facility] [place], [address], 04/24/2024 00:13:08 04/20/20 24 04/24/2024 CADET FIBRO SURE PLUS alpha 2-macroglobu sylvia, qn 409 mg/dL 110-27 6 high Not Available [facility] (Pre-Op Clinic) [address] [place] [address] [place], [address], 04/24/2024 00:13:08 04/20/20 24 04/24/2024 CADET FIBRO SURE PLUS GGT 372 IU/L 0-60 high Not Available [facility] (Pre-Op Clinic) [address] [place] [address] [place], [address], 04/24/2024 00:13:08 04/20/20 24 04/24/2024 CADET FIBRO SURE PLUS haptoglobin 129 mg/dL 33-346 Not Available [facility] (Pre-Op Clinic) [address] [place] [address] [place], [address], 04/24/2024 00:13:08 04/20/20 24 04/24/2024 CADET FIBRO SURE PLUS apolipoprote in A-1 92 mg/dL 116-20 9 low Not Available [facility] (Pre-Op Clinic) [address] [place] [address] [place], [address], 04/24/2024 00:13:08 04/20/2004/24/2024 CADET FIBRO SURE PLUS ALT (SGPT) p5p 54 IU/L 0-40 high Not Available [facility] (Pre-Op Clinic) [address] [place] [address] [place], [address], 04/24/2024 00:13:08 04/20/2004/24/2024 CADET FIBRO SURE PLUS cadet score 0.00-0 .25 high 0.75 Comme nt . <=0.2 5 = N0 - No CADET 0.25 - 0.50 = N1 - Mild CADET 0.50 - 0.75 = N2 - Moder ate CADET >0.75 = N3 - Sever e CADET Not Available [facility] (Pre-Op Clinic) [address] [place] [address] [place], [address], 04/24/2024 00:13:08 04/20/2004/24/2024 CADET FIBRO SURE PLUS cadet grade Commen t N3 - Sever e CADET Not Available [facility] (Pre-Op Clinic) [address] [place] [address] [place], [address], 04/24/2024 00:13:08 04/20/2004/24/2024 CADET FIBRO SURE PLUS fibrosis stage F3-F4 Not Available [facility] (Pre-Op Clinic) [address] [place] [address] [place], [address], 04/24/2024 00:13:08 04/20/2004/24/2024 CADET FIBRO SURE PLUS fibrosis score 0.72 0.00-0 .21 high Not Available [facility] (Pre-Op Clinic) [address] [place] [address] [place], [address], 04/24/2024 00:13:08 04/20/20 24 04/24/2024 CADET FIBRO SURE PLUS fibrosis scoring: Commen t . <=0.2 1 = Stage F0 - No fibro sis 0.21 - 0.27 = Stage F0 - F1 0.27 - 0.31 = Stage F1 - Medina l fibro sis 0.31 - 0.48 = Stage F1 - F2 0.48 - 0.58 = Stage F2 - Bridg ing fibro sis with few septa 0.58 - 0.72 = Stage F3 - Bridg ing fibro sis with many septa 0.72 - 0.74 = Stage F3 - F4 >0.74 = Stage F4 - Cirrh osis Not Available [facility] (Pre-Op Clinic) [address] [place] [address] [place], [address], 04/24/2024 00:13:08 04/20/2004/24/2024 CADET FIBRO SURE PLUS steatosis grade Commen t S2 - S3 Moder ate to Sever e Steat osis (Clin icall y Signi fican t) (34- 100%) Not Available [facility] (Pre-Op Clinic) [address] [place] [address] [place], [address], 04/24/2024 00:13:08 04/20/2004/24/2024 CADET FIBRO SURE PLUS steatosis score 0.00-0 .40 high 0.94 Comme nt . <=0.4 0 = S0 - No Steat osis (<5%) 0.40 - 0.55 = S1 - Mild Steat osis (but Clini spring Signi fican t) (5-33 %) >0.55 = S2S3- Moder ate to Sever e Steat osis (Clin icall y Signi fican t) (34-1 00%) Not Available [facility] (Pre-Op Clinic) [address] [place] [address] [place], [address], 04/24/2024 00:13:08 04/20/20 24 04/24/2024 CADET FIBRO SURE PLUS limitations: Emmanuel t . CADET Fibro Sure( R) Plus is recom lyla d for patie nts with suspe cted non-a lcoho lic fatty liver disea se. It is not recom lyla d for patie nts with other liver disea ses. It is also not recom lyla d in patie nts with Gilbe rt Disea se, acute hemol ysis, acute viral hepat itis, drug induc ed hepat itis, arpan ic liver disea se, autoi mmune hepat itis and/o r extra -hepa tic delmi stasi s. Any of these clini nani situa tions may lead to inacc urate quant itati ve predi ction s of fibro sis. Not Available [facility] (Pre-Op Clinic) [address] [place] [address] [place], [address], 04/24/2024 00:13:08 04/20/20 24 04/24/2024 CADET FIBRO SURE PLUS comment: Commlewis t . This test was devel oped and its perfo rmanc e stephanie cteri stics deter mined by [employer]. It has not been clear ed or appro manjinder by the Food and Drug Admin istra tion. . For quest ions regar ding this repor t pleas e conta ct custo rashid servi ce at [phone]. . Refer ences : . 1. Michael melgar V. et al. Diagn ostic Value of Bioch emica l Marke rs (Fibr oTest ) for the predi ction of Liver Fibro sis in patie nts with Non-A lcoho lic Fatty Liver Disea se. [facility] Gastr oente rolog y 2006 ; 6:6. 2. Hilary Keenan. et al. The Diagn ostic Perfo rmanc e of a Simpl i fied Blood Test (Stea toTes t-2) for the Predi ction of Liver Steat o sis. Eur J Gastr oente rol Hepat ol. 2019; 31:39 3-402 . 3. Hilary Keenan. et al. Diagn ostic perfo rmanc e of a new nonin v asive test for nonal cohol ic steat ohepa titis using a simpl ified his tolog ical refer ence. Eur J Gastr oente rol Hepat ol. 2017; 30:56 9-577 . Perfo rmed at: [facility] [place] [address] [facility] , [place] [address] Lab Direc tor: Jennifer patel MD, Phone : [phone] Not Available [facility] (Pre-Op Clinic) [address] [place] [address] , [place], [address], 04/24/2024 00:13:08 04/20/20 24 04/24/2024 CADET FIBRO SURE PLUS interpretati ons: Commen t . Quant itati ve resul ts of 10 bioch emica ls in combi natio n with age and gende r, are tom zed using a compu tatio nal algor ithm to provi de a quant itati ve surro gate marke r (0.0- 1.0) of liver fibro sis (Bozman vir F0-F4 ), hepat ic steat osis (0.0- 1.0, S0-S3 ), and Non-A lcoho lic Steat o-Hep atiti s (CADET ) (0.0- 1.0, N0-N3 ). The absen ce of steat osis (S<0. 40) precl udes the diagn osis of CADET. Fibro sis marke r: In a study of 171 Non-A lcoho lic Fatty Liver Disea se (NAFL D) patie nts where 23% had signi fican t NAFLD fibro sis ([place]ozman vir F2-F4 ) and 11% had cirrh osis by liver biops y, a fibro sis resul t of >0.3 yield ed a sensi tivit y of 83% and a speci ficit y of 78% for the detec tion of signi fican t fibro sis.i ??1i? ? Steat osis marke r: In a popul ation of 2997 patie nts, where 61% had signi fican t steat osis (>=5% ) on a liver biops y, a steat osis score >0.4 had a sensi tivit y of 79% and a speci ficit y of 50% for ident ifica tion of signi fican t steat osis. i??2i ?? CADET marke r: In a popul ation of 1081 NAFLD patie nts, where 51% had at least some CADET by liver biops y, a predi ction of CADET had a sensi tivit y of 72% for ident ifyin g CADET and a speci ficit y of 71%.i ??3i? ? Not Available [facility] (Pre-Op Clinic) [address] [place] [address] [place], [address], 04/24/2024 00:13:08 04/20/20 24 04/24/2024 CADET FIBRO SURE PLUS methodology: Emmanuel t . The tom divina teste d are perfo rmed by Fibro Sure- Speci fic metho ds. Not inten ded for use with other diagn ostic consi derat ions. Not Available [facility] (Pre-Op Clinic) [address] [place] [address] [place], [address], 04/24/2024 00:13:08 04/20/20 24 04/20/2024 ALPHA 1 ANTIT RYP TOTAL note Unles s other robles noted testi ng perfo rmed at: [facility] [address] [facility] [place] [address] Gabriel melendez MD Not Available [facility] (Pre-Op Clinic) [address] [place] [address] [place], [address], 04/25/2024 17:13:02 04/20/20 24 04/25/2024 ALPHA 1 ANTIT RYP TOTAL qgjhs-4-yikt trypsin, serum 185 mg/dL 101-18 7 Not Available [facility] (Pre-Op Clinic) [address] [place] [address] [place], [address], 04/25/2024 17:13:02 04/20/20 24 04/25/2024 ALPHA 1 ANTIT RYP TOTAL phenotype (pi) MM Perfo rmed at: - [facility] [place] [address] [place] [address] Lab Direc tor: Michael blair PhD, Phone : [phone] Perfo rmed at: - [facility] [place] [address] [facility] [place] [address] Lab Direc tor: Jennifer patel MD, Phone : [phone] MM Pheno type is consi dered to be norm al , produ cing hayley l serum level s of alpha -1-pr oteas e inhib itor and not assoc iated with clini nani disea se. Assoc iated A1A total serum level s in other pheno types and their incid ence in the gener al popul ation are shown in the table below . Pheno type Popul ation % funct ion A-1-A T Conc. * Incid ence % percy red to MM (Typi nani Range ) MM 86.5% 100% (96 - 189) MS 8.0% 86% (83 - 161) MZ 3.9% 61% (60 - 111) FM 0.4% 100% (93 - 191) SZ 0.3% 41% (42 - 75) SS 0.1% 64% (62 - 119) ZZ 0.05% 19% (16 - 38) FS 0.05% 70% (70 - 128) FZ Unkno wn 46% (44 - 88) FF Unkno wn Unkno wn *A-1- AT nick ntrat ion in the homoz ygous MM pheno type is taken as the refer ence hayley l. Perce nt defic iency in each pheno type is repor sophie relat meño to this refer ence. Range s used to confi rm pheno type. Perfo rmed at: - [facility] [address] [place] [address] Lab Direc tor: Michael blair PhD, Phone : [phone] [facility]fo [facility] at: [facility] [address] [facility] , [place] [address] Lab Direc tor: Jennifer patel MD, Phone : [phone] Not Available [facility] (Pre-Op Clinic) [address] [place] [address] , [place], [address], 04/25/2024 17:13:02 04/20/20 24 04/20/2024 HERED ITARY HEMOC HROMA TOSIS note Unles s other robles noted testi ng perfo rmed at: [facility] [address] [place] [address] Gabriel melendez MD Not Available [facility] (Pre-Op Clinic) [address] [place] [address] [place], [address], 05/10/2024 18:15:40 04/20/20 24 05/10/2024 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 In sympt omati c indiv idual s, other cause s of iron overl oad shoul d be evalu ated. See Addit ional Infor matio n and Comme nts. . Addit ional Clini nani Infor matio n: Hered itary hemoc hroma tosis (HFE relat ed) is an autos omal reces sive iron stora ge disor neal. Patie nts may have a arpan ic diagn osis of hered itary hemoc hroma tosis and never show clini nani sympt oms. Clini nani sympt oms typic ally appea r betwe en 40 to 60 years in males and after menop ause in femal es. Signs and sympt oms may inclu de organ damag e, prima rily in the liver , risk for hepat ocell ular carci noma, diabe divina, and heart disea se due to iron accum ulati on. Life expec tancy may be decre ased in indiv idual s who devel op cirrh osis. Treat ment for clini spring sympt omati c indiv idual s may inclu de thera peuti c phleb otomy . Liver trans plant may be used to treat end stage liver failu re. For preve ntive care, monit oring for iron overl oad is recom lyla d for patie nts who are homoz ygous for c.845 G>A (p.Cy s282T yr) and have yet to exper ience clini nani sympt oms. . Comme nts: The most commo n HFE varia nts assoc iated with hered itary hemoc hroma tosis are c.845 G>A (p.Cy s282T yr), c.187 C>G (p.Hi s63As p), c.193 A>T (p.Se r65Cy s). While patie nts homoz ygous for c.845 G>A (p.Cy s282T yr) are the most likel y to prese nt clini nani sympt oms, less than 10% devel op clini spring signi fican t iron overl oad with tissu e and organ damag e. . Arpan ic couns zia is recom lyla d to discu ss the poten tial clini nani impli catio ns of posit meño resul ts, as well as recom menda tions for testi ng famil y membe rs. Arpan ic Coord inato rs are avail able for healt h care provi ders to discu ss resul ts at [phone] . Test Detai ls: Three varia nts tom zed: c.845 G>A (p.Cy s282T yr), commo nly refer red to as C282Y c.187 C>G (p.Hi s63As p), commo nly refer red to as H63D c.193 A>T (p.Se r65Cy s), commo nly refer red to as S65C . Metho ds/Li mitat ions: DNA Tom sis of the HFE gene ([id number]) was perfo rmed by PCR ampli ficat ion follo wed by restr ictio n enzym e diges tion tom ses. Resul ts must be combi nicanor with clini nani infor matio n for the most accur ate inter preta tion. Molec ular- based testi ng is highl y accur ate, but as in any labor atory test, diagn ostic error s may occur . False posit meño or false negat meño resul ts may occur for reaso ns that inclu de arpan ic varia nts, blood trans fusio ns, bone marro w trans plant ation , somat ic or tissu e-spe cific mosai cism, misla beled sampl es, or lucas eous repre senta tion of famil y relat ionsh ips. This test was devel oped and its perfo rmanc e stephanie cteri stics deter mined by [facility]vis. It has not been clear ed or appro manjinder by the Food and Drug Admin istra tion. . Refer ences : Chet BR, Brody PC, Michaell ey [place], Anna Marie obrien [place], Juancho obrien ; Ameri can Assoc iatio n for the Study of Liver Disea ses. Diagn osis and manag ement of hemoc hroma tosis : 2010 pract ice guide line by the Ameri can Assoc iatio n for the Study of Liver Disea ses. Hepat ology . 2010;5 4(1): 328-4 3. doi: 10.10 / p.243 30. PMID: 58200 290; PMCID : PMC31 11920 . Annamarie G, Sonali ot P, Toyin frias DW, Leandro r H, Sreedhar coleman O, Rafael n S, Nellie o I, Richi s M, Linda y S. EMQN best pract ice guide lines for the molec ular arpan ic diagn osis of hered itary hemoc hroma tosis (HH). Eur J Hum Arpan . 2016 Feb;2 4(4): 479-9 5. doi: 10.10 /ej hg.20 15.12 8. Epub 2014 8. PMID: 91474 218; PMCID : PMC49 28410 . Not Available [facility] (Pre-Op Clinic) [address] [place] [address] [place], [address], 05/10/2024 18:15:40 04/20/20 24 05/10/2024 HERED ITARY HEMOC HROMA TOSIS reviewed by: EMMANUEL Grossman , PhD Perfo rmed at: [facility] [place] [address] , [place] [address] Lab Direc tor: Guerita Nick [facility] , Phone : [phone] Not Available [facility] (Pre-Op Clinic) [address] [place] [address] [place], [address], 05/10/2024 18:15:40 08/28/20 24 08/28/2024 urina lysis , dipst ick Leukocytes (reference range) negati ve Not Available [address], [address], 08/28/2024 14:26:08 08/28/2008/28/2024 urina lysis , dipst ick Nitrite (reference range:) negati ve Not Available [address], [address], 08/28/2024 14:26:08 08/28/2008/28/2024 urina lysis , dipst ick Urobilinogen (reference range) 2 Not Available [address], [address], 08/28/2024 14:26:08 08/28/20 24 08/28/2024 urina lysis , dipst ick Protein (reference range) trace Not Available [address], [address], 08/28/2024 14:26:08 08/28/2008/28/2024 urina lysis , dipst ick pH (reference range 5-8.5) 6.5 Not Available [address], [address], 08/28/2024 14:26:08 08/28/2008/28/2024 urina lysis , dipst ick Blood (reference range:) negati ve Not Available [address], [address], 08/28/2024 14:26:08 08/28/20 24 08/28/2024 urina lysis , dipst ick Specific [place] (reference range) 1.020 Not Available [address], [address], 08/28/2024 14:26:08 08/28/20 24 08/28/2024 urina lysis , dipst ick Ketone (reference range) negati ve Not Available [address], [address], 08/28/2024 14:26:08 08/28/20 24 08/28/2024 urina lysis , dipst ick Bilirubin (reference range) small Not Available [address], [address], 08/28/2024 14:26:08 08/28/20 24 08/28/2024 urina lysis , dipst ick Glucose (reference range) negati ve Not Available [address], [address], 08/28/2024 14:26:08 08/28/20 24 08/28/2024 bladd er scan (PROC ) Calculated Residual Urine: 85 ml Not Available [address], [address], 08/28/2024 14:26:09 04/20/20 24 04/20/2024 US, liver [facility] [address] [place] [address] [phone] (Phone ) ASHLEIGH Atkinson REPORT Name: NESSA HAWTHORNE : 1969 Accoun t #: [id number] Age: 53 Years Patien t Type: Outpat ient Sex: F Access ion#: [id number] Exam Descri ption: US LIVER Exam Reason : abnorm al LFTs Order Date/T scotty: 2023 08:58: 00 AM Dictat ed By: Oswald morel MD Orderi ng Physic pako: DIONE JOHNSON Attend ing Physic pako: DIONE JOHNSON STUDY: ABDOMI NAL ULTRAS OUND - RIGHT UPPER QUADRA NT US LIVER REASON FOR EXAM: Female , 53 years old. abnorm al LFTs TECHNI QUE: Ultras ound evalua tion of the right upper quadra nt was perfor med with real-t scotty and static denney-s katiana imagin g. TECHNI NANI QUALIT Y: Adequa te. COMPAR GISELA: None FINDIN GS: Liver: There is a hetero geneou s echoge nicity of the liver. The bile ducts are within normal limits . There is hepati c color flow. The direct ion of portal flow is hepato petal. There is no demons trated mass lesion . Gallbl adder: Normal disten ded gallbl adder. The gallbl adder wall measur es 2.1 mm. There is a negati ve sonogr aphic Knox 's sign. There is no perich olecys tic fluid. There are no gallst ones. Common Bile Duct (C.B.D .): 2.4 mm common bile duct diamet er. PAGE 1 OF 2 Name: NESSA HAWTHORNE : 1969 Accoun t #: [id number] Age: 53 Years Patien t Type: Outpat ient Sex: F Access ion#: [id number] Exam Descri ption: US LIVER Exam Reason : abnorm al LFTs Order Date/T scotty: 2023 08:58: 00 AM Pancre as: It is not visual ized. There is too much overly ing bowel gas. Right Kidney : Normal size of the right kidney . The right kidney measur es 12.9 cm. . Normal renal cortex . There is no demons trated renal mass or cyst. There is no right hydron ephros is. Aorta: It is not visual ized. There is too much overly ing bowel gas. . IMPRES CAMACHO: No acute findin gs. Note: Renal size measur ements and size measur ements of other organs etc may vary depend ing on modali ty and operat or depend ent variat ions in measur ements . (i.e. Measur ing a kidney on an US does not correl ate with an exact same measur ement on a CT.) Electr onical ly signed by: Oswald morel MD 2023 02:53 PM EDT RP Workst ation: SEALWR [id number] Princi pal Interp reter Name: Oswald morel Provid er ID: [id number] PAGE 2 OF 2 CC'ed Logic: Orderi ng Provid er: GISELA Tavera CC Provid er: UNKNOW N DR Attend ing Provid er: GISELA Tavera Referr ing Provid er: GISELA Tavera Admitt ing Provid er: GISELA Tavera [id number] [place] [address] (Central Scheduling) [address] [place] [address] [place], [address], 05/08/2024 07:41:37 Result Notes None recorded. Problems Name Problem SNOMED Code Status Onset Date Resolution Date Notes Provider Name and Address Organization Details Recorded Time Urinary incontinence 629743790 Active 2022 Not Available [facility] 3 00:02:18 History of calculus of kidney 912040325 Active 2022 Not Available [facility] 3 00:02:18 Recurrent urinary tract infection 639929958 Active 2022 Not Available [facility] 3 00:02:18 Hypertensive disorder 28521745 Active 2022 Not Available [facility] 3 00:02:18 Obstructive sleep apnea syndrome 12441414 Active 2022 Not Available [facility] 3 00:02:19 Hyperlipidemi a 70676643 Active 2022 Not Available [facility] 3 00:02:19 Diabetes mellitus 63399812 Active 2022 Not Available [facility] 3 00:02:19 Irritable bowel syndrome 32832860 Active 2022 Not Available [facility] 3 00:02:18 Generalized abdominal pain 889303560 Active 2022 Not Available [facility] 3 00:02:18 Nausea 283195581 Active 2022 Not Available [facility] 3 00:02:18 Gastro-esopha geal reflux disease with esophagitis 609021013 Active 2022 Not Available [facility] 3 00:02:18 Irritable bowel syndrome characterized by constipation 448813258 Active 2022 Not Available [facility] 3 00:02:19 Hematochezia 413604837 Active 2023 Peyton Johnson NP [address], [address], [place], [address] , [facility] & [place] 4 10:11:31 Abnormal liver function 69444640 Active 2023 Peyton Johnson NP [address], [address], [place], [address] , [place] - [facility] - [place] & [place] 4 13:59:04 Internal hemorrhoids [id number] Active 2023 Peyton Johnson NP [address], [address], [place], [address] , [place] [facility] [place] 4 12:19:16 Metabolic dysfunction-a ssociated steatohepatit is [id number] Active 2023 Peyton Johnson NP [address], [address], [place], [address] , [place] [facility] [place] 4 12:32:36 Seizure disorder [id number] Active 2023 René montgomery, [place] - [facility] - [place] 14:18:39 Notes:Some problems listed i n Document: #[id number] could not be added to this patient's chart. Please review this document and add these problems to the patient's chart manually as needed. Problem Notes None recorded. Procedures Surgical History Date Name Laterality Status Provider Name and Address Organization Details Recorded Time 3 completed Marlen [place] - [facility] - [place] 06/12/2024 11:54:58 1 Date of Last Colonoscopy completed Marlen HAMMER - [facility] - [place] 06/12/2024 11:54:58 7 Colonoscopy completed Ester Shelli H[place] - [facility] - [place] 05/31/2023 10:08:52 7 EGD/Endoscopy completed Ester HAMMER - [facility] - [place] 05/31/2023 10:09:02 2 section completed Ester Shelli HAMMER - [facility] - [place] 05/31/2023 10:08:45 3 section completed Ester Shelli HAMMER - [facility] - [place] 05/31/2023 10:08:42 biopsy of breast completed Ester Marques [facility] & [place] 05/31/2023 10:09:12 EGD/Endoscopy completed Peyton Johnson NP [address], [address], [place], [address], [facility] & [place] 05/31/2023 10:32:05 Colonoscopy completed Peyton Johnson NP [address], [address], [place], [address], [facility] & [place] 05/31/2023 10:32:25 colonoscopy completed Antonieta Perera [facility] & [place] 05/30/2024 09:47:27 Imaging Results None recorded. Procedure Notes None recorded. Medical Equipment None Reported. Allergies No known drug allergies Medications Name Sig Start Date Stop Date Status Note LastModified by Organization Details LastModified Time celecoxib 200 mg capsule TAKE 1 CAPSULE BY MOUTH EVERY DAY active Not Available Not Available No t Available Miralax 17 gram/dose oral powder Take 17 g by oral route for 2 days. 06/12 completed Not Available Not Available Not Available buspirone 5 mg tablet TAKE 1 TABLET BY MOUTH TWICE DAILY FOR ANXIETY. MAY CAUSE DROWSINES S. DO NOT DRIVE IF SLEEPY active Not Available Not Available No t Available promethazin e-DM 6.25 mg-15 mg/5 mL oral syrup TAKE 5 MILLILITE RS BY MOUTH EVERY 6 HOURS NEEDED FOR COUGH CAUTION SEDATION (NOT COVERED) active Not Available Not Available No t Available atorvastati n 80 mg tablet TAKE 1 TABLET BY MOUTH EVERY EVENING active Not Available Not Available No t Available nystatin 100,000 unit/mL oral suspension TAKE 5 MILLILITE RS BY MOUTH 4 TIMES PER DAY 01/30 completed Not Available Not Available Not Available nitrofurant oin macrocrysta l 50 mg capsule TAKE 1 CAPSULE BY MOUTH EVERY DAY FOR 90 DAYS active Not Available Not Available No t Available oxybutynin chloride ER 10 mg tablet,exte nded release 24 hr TAKE 1 TABLET BY MOUTH EVERY DAY active Not Available Not Available No t Available azithromyci n 250 mg tablet TAKE 2 TABLETS THE FIRST DAY THEN 1 TABLET DAILY FOR 4 MORE DAYS active Not Available Not Available No t Available Lidocaine Viscous 2 % mucosal solution APPLY 2 ML TO AFFECTED AREA EVERY 2 HOURS NEEDED FOR PAIN. active Not Available Not Available No t Available fluconazole 150 mg tablet TAKE ONE TABLET BY MOUTH ONE DOSE active Not Available Not Available No t Available tolterodine ER 4 mg capsule,ext ended release 24 hr TAKE 1 CAPSULE BY MOUTH EVERY DAY 12/18 completed Not Available Not Available Not Available hydrocodone 5 mg-acetamin ophen 325 mg tablet TAKE 1 TABLET BY MOUTH EVERY 6 HOURS NEEDED 04/18 completed Not Available Not Available Not Available ondansetron HCl 4 mg tablet TAKE 1 TABLET BY MOUTH EVERY 6 HOURS NEEDED FOR NAUSEA AND VOMITING. 04/18 completed Not Available Not Available Not Available famotidine 40 mg tablet TAKE 1 TABLET BY MOUTH EVERY DAY DIRECTED active Not Available Not Available No t Available doxepin 75 mg capsule TAKE ONE CAPSULE BY MOUTH DAILY AT 5 PM EVERY EVENING 01/27 completed Not Available Not Available Not Available Accu-Chek Softclix Lancets USE 3/DAY active Not Available Not Available No t Available diphenoxyla te-atropine 2.5 mg-0.025 mg tablet TAKE 1 TABLET BY MOUTH EVERY 6 HOURS NEEDED 04/18 completed Not Available Not Available Not Available ciprofloxac in 500 mg tablet TAKE 1 TABLET BY MOUTH TWICE DAILY 12/18 completed Not Available Not Available Not Available sulfamethox azole 800 mg-trimetho prim 160 mg tablet TAKE 1 TABLET BY MOUTH TWICE A DAY active Not Available Not Available No t Available doxycycline monohydrate 100 mg tablet TAKE 1 TABLET BY MOUTH TWICE A DAY UNTIL FINISHED 12/18 completed Not Available Not Available Not Available vancomycin 125 mg capsule TAKE 1 CAPSULE BY MOUTH EVERY 6 HOURS UNTIL FINISHED 04/18 completed Not Available Not Available Not Available hydrocortis one acetate 25 mg rectal suppository Insert 1 supposito ry twice a day by rectal route for 14 days. 2024 active Not Available Not Available Not Avai lable dexamethaso ne 0.5 mg/5 mL oral solution TAKE 10 MILLILITE RS BY ORAL ROUTE 4 TIMES PER DAY. RINSE AND HOLD FOR 2 MINUTES THEN SPIT. 12/18 completed Not Available Not Available Not Available nystatin-tr iamcinolone 100,000 unit/gram-0 .1 % topical ointment APPLY 1 GRAM TOPICALLY TO THE AFFECTED AREA(S) TWICE DAILY (BULK) 04/18 completed Not Available Not Available Not Available meloxicam 7.5 mg tablet TAKE 1 TABLET BY MOUTH TWICE A DAY NEEDED active Not Available Not Available No t Available methenamine hippurate 1 gram tablet TAKE 1 TABLET BY MOUTH EVERY DAY active Not Available Not Available No t Available clindamycin 1 % topical gel APPLY TO AFFECTED AREAS DAILY NEEDED 01/30 completed Not Available Not Available Not Available ascorbic acid (vitamin C) 500 mg tablet Take 1 tablet 3 times a day by oral route for 30 days. 2023 active Not Available Not Available Not Avai lable gabapentin 800 mg tablet TAKE 1 TABLET BY MOUTH EVERY 6 HOURS active Not Available Not Available No t Available diazepam 2 mg tablet TAKE 1 TABLET BY MOUTH EVERY 8 HOURS NEEDED FOR PANIC 12/18 completed Not Available Not Available Not Available doxycycline monohydrate 100 mg capsule TAKE 1 CAPSULE BY MOUTH TWICE A DAY WITH FOOD 02/15 completed Not Available Not Available Not Available cephalexin 500 mg capsule TAKE 1 CAPSULE BY MOUTH EVERY 6 HOURS FOR 10 DAYS active Not Available Not Available No t Available doxepin 100 mg capsule TAKE 1 CAPSULE BY MOUTH EVERY EVENING active Not Available Not Available No t Available Humulin R Regular U-100 Insulin 100 unit/mL injection solution Take 3 units every day by injection route as directed. 12/18 completed Not Available Not Available Not Available pantoprazol e 40 mg tablet,shalini yed release TAKE 1 TABLET BY MOUTH EVERY DAY active Not Available Not Available No t Available trazodone 150 mg tablet TAKE ONE TABLET BY MOUTH EVERY EVENING active Not Available Not Available No t Available oseltamivir 75 mg capsule TAKE 1 CAPSULE BY MOUTH EVERY DAY 04/18 completed Not Available Not Available Not Available triamcinolo ne acetonide 0.1 % topical ointment APPLY TO LEGS TWICE DAILY FOR UP TO TWO WEEKS. STOP FOR ONE WEEK. REPEAT NEEDED. 04/18 completed Not Available Not Available Not Available promethazin e 25 mg tablet TAKE 1 TABLET BY MOUTH EVERY 4 HOURS NEEDED active Not Available Not Available No t Available oxybutynin chloride ER 5 mg tablet,exte nded release 24 hr TAKE ONE TABLET BY MOUTH DAILY AT 9 AM 01/27 completed Not Available Not Available Not Available ammonium lactate 12 % topical cream APPLY TOPICALLY TWICE A DAY 12/18 completed Not Available Not Available Not Available mupirocin 2 % topical ointment active Not Available Not Available Not Available ibuprofen 600 mg tablet TAKE 1 TABLET BY MOUTH EVERY 6 HOURS NEEDED 12/18 completed Not Available Not Available Not Available methylpredn isolone 4 mg tablets in a dose pack TAKE 6 TABLETS ON DAY 1 DIRECTED ON PACKAGE AND DECREASE BY 1 TAB EACH DAY FOR A TOTAL OF 6 DAYS active Not Available Not Available No t Available hydroxyzine HCl 10 mg tablet TAKE 1 TABLET BY MOUTH EVERY 8 HOURS NEEDED FOR ITCHING. CAUTION SEDATION active Not Available Not Available No t Available losartan 100 mg tablet TAKE 1 TABLET BY MOUTH EVERY DAY active Not Available Not Available No t Available fluoxetine 20 mg capsule TAKE 1 CAPSULE BY MOUTH EVERY DAY 04/18 completed Not Available Not Available Not Available metformin ER 500 mg tablet,exte nded release 24 hr TAKE 1 TABLET BY MOUTH 1 TIME EACH DAY WITH DINNER. DO NOT CRUSH, CHEW, OR SPLIT active Not Available Not Available No t Available cholecalcif junaid (vitamin D3) 125 mcg (5,000 unit) capsule TAKE ONE CAPSULE BY MOUTH DAILY AT 9 AM active Not Available Not Available No t Available dicyclomine 10 mg capsule TAKE 1 CAPSULE BY MOUTH EVERY DAY active Not Available Not Available No t Available Dulcolax (bisacodyl) 5 mg tablet,shalini yed release Take 2 tablets by oral route for 1 day. 06/12 completed Not Available Not Available Not Available Ventolin HFA 90 mcg/actuati on aerosol inhaler INHALE 1 OR 2 PUFFS EVERY 4 TO 6 HOURS NEEDED FOR SHORTNESS OF BREATH active Not Available Not Available No t Available neomycin-po lymyxin-hyd rocort 3.5 mg-10,000 unit/mL-1 % ear drops,susp 4 DROP IN BOTH EARS 4 TIMES DAILY LIE WITH AFFECTED EAR UPWARDS X 5 MINUTES USE FOR MAX 10 DAYS active Not Available Not Available No t Available clindamycin 1 % lotion APPLY 1 GRAM ONTO SKIN TWICE DAILY (BULK) 01/30 completed Not Available Not Available Not Available enoxaparin 100 mg/mL subcutaneou s syringe INJECT SUBCUTANE OUSLY EVERY 12 HOURS DIRECTED 04/18 completed Not Available Not Available Not Available escitalopra m 10 mg tablet TAKE ONE TABLET BY MOUTH DAILY AT 9 AM 07/30 completed Not Available Not Available Not Available escitalopra m 20 mg tablet TAKE 1 TABLET BY MOUTH EVERY DAY active Not Available Not Available No t Available bupropion HCl XL 150 mg 24 hr tablet, extended release TAKE 1 TABLET BY MOUTH EVERY DAY 12/18 completed Not Available Not Available Not Available nitrofurant oin monohydrate /macrocryst als 100 mg capsule TAKE 1 TABLET BY MOUTH TWICE A DAY active Not Available Not Available No t Available duloxetine 30 mg capsule,del ayed release TAKE 1 CAPSULE BY MOUTH EVERY DAY 04/18 completed Not Available Not Available Not Available chlorhexidi ne gluconate 0.12 % mouthwash SIWSH 5 ML IN MOUTH FOR 2 MINUTES AND THEN SPIT BEFORE BRUSHING TEETH TWICE A DAY 12/18 completed Not Available Not Available Not Available apple cider vinegar 450 x 1 daily active Not Available Not Available No t Available sodium fluoride 1.1 % dental paste BRUSH TWICE A DAY AFTER NORMAL BRUSHING. DO NOT EAT, DRINK OR SMOKE 30 MINUTES AFTER APPLICATI ON. 12/18 completed Not Available Not Available Not Available BD Ultra-Fine Short Pen Needle 31 gauge x 5/16 USE DIRECTED WITH INSULIN PEN active Not Available Not Available No t Available aripiprazol e 2 mg tablet TAKE 1 TABLET BY MOUTH EVERY EVENING active Not Available Not Available No t Available diclofenac 1 % topical gel active Not Available Not Available Not Available Dificid 200 mg tablet TAKE 1 TABLET BY MOUTH TWICE A DAY 05/31 completed Not Available Not Available Not Available Xarelto 20 mg tablet TAKE ONE TABLET BY MOUTH DAILY AT 9 AM 01/30 completed Not Available Not Available Not Available Humulin R U-500 (Conc) Insulin Kwikpen 500 unit/mL (3 mL) subcutaneou s INJECT 100 UNITS BEFORE AT DINNER. active Not Available Not Available No t Available One-A-Day Women's 50 Plus 400 mcg-20 mcg tablet Take by oral route. active Not Available Not Available No t Available Accu-Chek Guide test strips USE TO TEST BLOOD SUGAR 3 TIMES A DAY active Not Available Not Available No t Available Intrarosa 6.5 mg vaginal insert Insert 1 vaginal insert every day by vaginal route for 30 days. 12/18 completed Not Available Not Available Not Available Colace 2-In-1 8.6 mg-50 mg tablet Take 2 tablets every day by oral route as directed for 90 days. 12/18 completed Not Available Not Available Not Available Ozempic 0.25 mg or 0.5 mg (2 mg/1.5 mL) subcutaneou s pen injector INJECT 0.375 ML (0.5 MG TOTAL) UNDER THE SKIN 1 (ONE) TIME PER WEEK. 04/18 completed Not Available Not Available Not Available Accu-Chek Guide Me Glucose Meter USE 3 TIMES PER DAY active Not Available Not Available No t Available FreeStyle Jonathon 2 Sensor kit USE DIRECTED . CHANGE EVERY 14 DAYS 12/18 completed Not Available Not Available Not Available FreeStyle Jonathon 2 Condon USE TO TEST BLOOD GLUCOSE DX E11.9 active Not Available Not Available No t Available Ozempic 1 mg/dose (4 mg/3 mL) subcutaneou s pen injector INJECT 1 MG UNDER THE SKIN 1 (ONE) TIME PER WEEK. 04/18 completed Not Available Not Available Not Available Paxlovid 300 mg (150 mg x 2)-100 mg tablets in a dose pack TAKE DIRECTED ON PACKAGE TWICE A DAY FOR 5 DAYS 01/30 completed Not Available Not Available Not Available Ozempic 2 mg/dose (8 mg/3 mL) subcutaneou s pen injector INJECT 2 MG SUBCUTANE OUSLY WEEKLY 02/15 completed Not Available Not Available Not Available Mounjaro 7.5 mg/0.5 mL subcutaneou s pen injector INJECT 0.5 ML (7.5 MG) UNDER THE SKIN 1 (ONE) TIME PER WEEK. 12/18 completed Not Available Not Available Not Available Mounjaro 5 mg/0.5 mL subcutaneou s pen injector INJECT 0.5 ML (5 MG) UNDER THE SKIN 1 (ONE) TIME PER WEEK. 06/12 completed Not Available Not Available Not Available Mounjaro 15 mg/0.5 mL subcutaneou s pen injector INJECT 0.5 ML (15 MG) UNDER THE SKIN 1 (ONE) TIME PER WEEK. active Not Available Not Available No t Available Mounjaro 10 mg/0.5 mL subcutaneou s pen injector INJECT 0.5 ML (10 MG) UNDER THE SKIN 1 (ONE) TIME PER WEEK. 12/18 completed Not Available Not Available Not Available Mounjaro 12.5 mg/0.5 mL subcutaneou s pen injector INJECT 0.5 ML (12.5 MG) UNDER THE SKIN 1 (ONE) TIME PER WEEK. active Not Available Not Available No t Available Mounjaro 2.5 mg/0.5 mL subcutaneou s pen injector INJECT 0.5 ML UNDER THE SKIN 1 TIME PER WEEK. 12/18 completed Not Available Not Available Not Available Ozempic 0.25 mg or 0.5 mg (2 mg/3 mL) subcutaneou s pen injector INJECT 0.25 MG WEEKLY FOR 4 WEEKS. INCREASE TO 0.5MG AFTER 4 WEEKS IF TOLERATED . 02/15 completed Not Available Not Available Not Available Vitals Date Recorded Body height Body mass index (BMI) Body weight Body temperature Oxygen saturation Oxygen saturation in Arterial blood by Pulse oximetry Heart rate Provider Name and Address Organization Details Last Updated DateTime 5 157.48 cm 50.9 kg/m2 768174. 4 g 98.3 [degF] 95 % 95 % 83 /min Marlen Fabricio [place] - [facility] & [place] 5 13:26:34 Date Recorded Body height Body mass index (BMI) Body weight Body temperature Provider Name and Address Organization Details Last Updated DateTime 03/12/2025 157.48 cm 50.9 kg/m2 592314.4 g 98.1 [degF] Dino Whittaker [place] - [facility] & [place] 03/12/2025 10:39:59 Date Recorded Body height Body mass index (BMI) Body weight Body temperature Oxygen saturation Oxygen saturation in Arterial blood by Pulse oximetry Heart rate Provider Name and Address Organization Details Last Updated DateTime 4 157.48 cm 52.7 kg/m2 987023. 6 g 97 [degF] 95 % 95 % 85 /min Ester Marques [place] - [facility] & [place] 4 13:45:21 Date Recorded Oxygen saturation Oxygen saturation in Arterial blood by Pulse oximetry Provider Name and Address Organization Details Last Updated DateTime 06/12/2024 93 % 93 % Peyton Johnson NP [address], [address], [place], [address], [facility] & [place] 06/12/2024 12:26:43 Date Recorded Body height Body mass index (BMI) Body weight Body temperature Heart rate Provider Name and Address Organization Details Last Updated DateTime 06/12/2024 157.48 cm 54.1 kg/m2 567121.6 2 g 97.9 [degF] 87 /min Marlen [place] [facility] & [place] 11:54:36 Date Recorded Body height Body mass index (BMI) Body weight Body temperature Provider Name and Address Organization Details Last Updated DateTime 08/28/2024 157.48 cm 34.2 kg/m2 78044.77 g 98.5 [degF] René HAMMER [facility] & [place] 08/28/2024 14:10:48 Social History Question Answer Notes LastModified by [employer] [facility] Details LastModified Time Tobacco Smoking Status Current Every Day Smoker René montgomery, [place] [facility] & [place] 08/28/2024 14:20:56 Do You Have An Advance Directive? No Information not available 06/12/2024 Are You Blind Or Do You Have Difficulty Seeing? Yes Information not available 06/12/2024 What Was The Date Of Your Most Recent Tobacco Screening? 01/27/2023 Information not available 06/12/2024 Are You Passively Exposed To Smoke? No Information not available 06/12/2024 How Much Tobacco Do You Smoke? 0.5 PPD Information not available 04/07/2023 How Many Years Have You Smoked Tobacco? 25 Information not available 06/12/2024 Sex: Unknown Functional Status Question Answer Note LastModified by Organizat ion Details LastModified Time Do you use any illicit or recreational drugs? No Information not available 04/07/2023 What is your level of alcohol consumption? None Information not available 06/12/2024 Do you or have you ever used smokeless tobacco? Never used smokeless tobacco Information not available 06/12/2024 What is your exercise level? Moderate Information not available 06/12/2024 Mental Status Question Answer Note LastModified by Organization D etails LastModified Time Do you feel stressed (tense, restless, nervous, or anxious, or unable to sleep at night)? [id number] Information not available 06/12/2024 Family History Relationship Description Onset Age of this Age Resolved Age Notes LastModified by Organization Details LastModified Time Mother Hyperlipidem ia [email or web address] Not available 2024 13:17:16 Mother Hypertensive disorder Not available 05/31 10:06:29 Mother Heart failure [email or web address] Not available 2024 13:17:16 Brother Myocardial infarction [email or web address] Not available 05/20 10:06:43 Brother Disorder of endocrine system pt. added direct ly (07/30) [email or web address] Not available 07/30/2023 14:55:27 Brother Overdose dec [email or web address] Not availabl e 12/18/2024 13:17:16 Sister Disorder of endocrine system pt. added direct ly (07/30) [email or web address] Not available 07/30/2023 14:55:27 Medical History Condition Response Diabetes Y Bleeding Disorder Y Vision or Eye Problems Y Arthritis Y Seizures/Epilepsy Y Kidney Stones Y Hyperlipidemia Y Clotting Disorder Y Reflux/GERD Y Sleep Apnea Y High Cholesterol Y Heart Disease N Rheumatoid Arthritis Y Headaches Y Hypertension Y Obstructive Sleep Apnea Y Gynecological History Statement/Question Response Date of Last Colonoscopy 07/29/2021 01/10/2023 Date of LMP 11/23/2020 Sexually Active? N Obstetrics History GPAL:G 2 P 2 0 0 2 Type Value Full Term 2 Living 2 Total 2 Past Encounters Encounter ID Performer Location Encounter Start Date Encounter Closed Date Diagnosis/Indication Diagnosis SNOMED-CT Code Diagnosis ICD10 Code Diagnosis Note [id number] Lauren Rich NP, [facility] [address] [facility] [place] [phone] 04/18/2023 10:02:12 04/18/2023 11:02:00 Urinary incontinence 145467885 R32 UA clearPVR 92mlKUB r/t h/o kidney stonesStar t Detrol LA 4mg dailyRTC in 8 weeks for f/u Nocturia 553868203 R35.1 History of calculus of kidney 793752938 Z87.442 History of diabetes mellitus 305068739 Z86.39 Long-term current use of anticoagulant 911885218 Z79.01 [id number] Peyton Johnson NP [facility] [address] [place] [address] [place] [address] 05/31/2023 09:29:12 05/31/2023 11:02:06 History of Intestinal infection caused by Clostridioides difficile 2146284770 05621 Z86.19 History of C diff diagnosed 03/2023 treated with vancomycin . Continued to experience symptoms and treated with Dificid which she completed 1 month ago. Symptoms have improved at this time. Will continue to monitor. Generalize d abdominal pain 780440489 R10.84 Generalize d abdominal bloating and pressure with episodes left-sided abdominal cramping. Recommend x-ray abdomen KUB to rule out underlying stool burden as she is experienci ng constipati on at this time. Abdominal x-ray reviewed 04/18/2023 from [facility] noted large amount of stool. Nausea 105509729 R11.0 Chronic episodes of nausea, mild at this time. No etiology identified on EGD 2019. Normal gastric emptying study 2019. I have recommende d eating small frequent meals as well as strict glycemic control. Patient is currently prescribed Ozempic, which also could be contributi ng to symptoms. Gastro-eso phageal reflux disease with esophagitis 124114726 K21.00 GERD controlled with use of daily PPI. Irritable bowel syndrome characterized by constipation 928420324 K58.1 failed treatment with MiraLax, fiber, and stool softeners in the past. Large amount of stool noted on abdominal x-ray from [facility] 04/18/2023 . Recommend Xray abd today to further evaluate given complaints of abdominal pain. Recommend trial of linzess 145 mcg and 290 mcg, samples 8 days each provided to patient in clinic today to begin based on xray results. [id number] WILLI Vasquez [facility] [address] [place], [place] [address]T[place] [address] 08/02/2023 09:48:53 08/02/2023 12:49:25 Irritable bowel syndrome characterized by constipation 694734495 K58.1 Currently denies constipati on after Ozempic was discontinu ed. Previously provided Linzess samples however unable to tolerate. Failed treatment with MiraLax, fiber, and stool softeners in the past. Gastro-eso phageal reflux disease with esophagitis 140850412 K21.00 Controlled with daily PPI. Recommend continued use as well as reflux precaution s. [id number] Peyton Johnson NP [facility] [address] [place] [phone] 01/31/2024 10:24:39 02/16/2024 14:56:11 Hematochezia 081923831 K92.1 2 month history episodes of hematochez ia. Most recent 1 week ago which she describes as small. Last colonoscop y 06/2020 with polyp resected negative random colon biopsies. Given her recent episodes of hematochez ia recommend colonoscop y for further evaluation . Recommend CBC today. Pt is scheduled for Colon 03/13 @ 7:30 AM Gastro-eso phageal reflux disease with esophagitis 033881231 K21.00 Continues pantoprazo le 40 mg daily with recent worsening night time symptoms. Recommend continued use of PPI as prescribed as well as starting famotidine 40 mg for treatment. Recommend continued use as well as reflux precaution s. Irritable bowel syndrome characterized by constipation 842303335 K58.1 recurrent mild symptoms at this time. Previously failed treatment with Linzess, MiraLax, fiber. Recommend senna Colace 2 tabs daily for treatment at this time. [id number] Peyton Johnson NP [facility] [address] [place] [phone] 03/20/2024 13:08:20 03/20/2024 13:46:07 Hematochezia 694936230 K92.1 Previously scheduled for colonoscop y to further evaluate however reschedule d to 05/15/24 as patient failed to hold mounjaro. Last colonoscop y 06/2020 with polyp resected negative random colon biopsies. Gastro-eso phageal reflux disease with esophagitis 876235018 K21.00 Continues pantoprazo le 40 mg and famotidine for treatment. Irritable bowel syndrome characterized by constipation 528489975 K58.1 Continues senna colace for treatment. Previously failed treatment with Linzess, MiraLax, fiber. Abnormal l iver function 87713527 R94.5 Recently found to be elevated labs from PCP. Records have been requested for review. No family history of liver disease. No use of alcohol. Plan for labs to r/o viral hepatitis, autoimmune or metabolic liver disease. Plan for liver US to evaluate liver parenchyma . [id number] Peyton Johnson NP [address] [address] [id number] 06/12/2024 11:42:31 06/12/2024 15:34:41 Metabolic dysfunction-associate d steatohepatitis [id number] K75.81 Labs completed 04/20/2024 AST 53, ALT 59, alk-phos 100 with Cadet FibroSURE noting moderate to severe steatosis with fibrosis F3-F4. comprehens meño liver workup with positive GILBERTO for which she was referred to rheumatolo catherine to further evaluate. Patient continues majora for treatment of diabetes. I have recommende d strict low-fat diet as well as strict glycemic control for weight loss. Recommend 1-2 cups of coffee per day. Discussed starting Rezdiffra for treatment however will hold off at this time. Heterogene ous appearance of liver on US 04/20/24. Plan to repeat LFT's and CADET fibrosure 2 weeks prior to next appointmen t. Gastro-eso phageal reflux disease with esophagitis [id number] K21.00 controlled with use of pantoprazo le and famotidine . Will send refills today. Recommend continued reflux precaution s with avoidance of known food triggers. Irritable bowel syndrome characterized by constipation [id number] K58.1 Colonoscop y 05/15/2024 normal with exception of internal hemorrhoid s. Continues Continues senna colace for treatment. Recommend continued use. Previously failed treatment with Linzess, MiraLax, fiber. Internal hemorrhoids [id number] K64.8 internal hemorrhoid s noted on colonoscop y 05/15/2024 . Recommend continued use of stool softeners as well as daily use of fiber supplement s. [id number] Apolinar Maria Jr, MD [facility] [address] [address] 08/28/2024 13:53:47 08/28/2024 14:25:37 Recurrent urinary tract infection [id number] N39.0 54-year-ol d white female with history of recurring urinary tract infections . The only urine culture available was from July 01 which showed greater than 100,000 E coli. Patient's risk factors include diabetes And incomplete bladder emptying. Bladder scan today did show 85 cc. We discussed measures to decrease urinary tract infections including drinking at least 60 oz of water per day. We will place her on methenamin e plus vitamin-C to acidify the urine as well as a vaginal suppositor y to help with vaginal health and resist inflammati on and infections . [id number] Peyton Johnson NP [address] [address] 12/18/2024 13:15:14 12/18/2024 13:47:16 Gastro-esophageal reflux disease with esophagitis [id number] K21.00 controlled with use of pantoprazo le and famotidine . Will send refills today. Recommend continued reflux precaution s with avoidance of known food triggers. Metabolic dysfunction-associate d steatohepatitis [id number] K75.81 Labs completed 04/20/2024 AST 53, ALT 59, alk-phos 100 with Cadet FibroSURE noting moderate to severe steatosis with fibrosis F3-F4. Patient continues Mounjaro for treatment of diabetes. Weight is down 21 pounds since she was last seen in clinic. Recommend continued dietary modificati on with Mediterran champ diet has strict glycemic control. Recommend 1-2 cups of coffee per day. Heterogene ous appearance of liver on US 04/20/24. Discussed starting Rezdiffra for treatment pending follow-up labs as well as liver ultrasound and elastograp hy. Internal hemorrhoids [id number] K64.8 internal hemorrhoid s noted on colonoscop y 05/15/2024 . Occasional flare ups at this time. Recommend daily use of fiber supplement s as well as sitz baths. Recommend hydrocorti sone suppositor ies for treatment. [id number] Apolinar Maria Jr, MD [facility] [address] [address] 03/12/2025 10:12:02 03/12/2025 11:08:23 Recurrent urinary tract infection [id number] N39.0 54-year-ol d white female with history of recurring urinary tract infections . The only urine culture available was from July 01 which showed greater than 100,000 E coli. Patient's risk factors include diabetes And incomplete bladder emptying with previous PVR of 85 cc. Patient states 1 symptomati c urinary tract infections since her last visit. She would another urinary tract infection states she was treated his primary care physician but did not have any symptoms at that time. Cultures are not available today from those visits. We discussed other measures to help prevent urinary tract infections . We discussed prophylact ic antibiotic s and we will start her on nitrofuran toin 50 mg a day. She is to continued take the methenamin e and vitamin-C for acidificat ion. Health Concerns Section Related Observation LastModified by Organization Detai ls LastModified Time None Recorded Concern Status LastModified by Organization Details LastModified Time None Recorded Advance Directives Directive N: Payers Insurance Date Sequence Insurance Name Policy Number Policy Nolasco Covered Member ID Nolasco Member ID Guarantor Name 04/18/2023 1 [employer] (HMO) Nessa Hawthorne [id number] Nessa Hawthorne 06/08/2024 1 [facility] (MEDICARE REPLACEMENT/A DVANTAGE - HMO) [id number] Nessa Hawthorne [id number] Nessa Hawthorne 03/09/2025 1 [employer] (MEDICARE REPLACEMENT/A DVANTAGE - PPO) Nessa Hawthorne [id number] Nsesa Hawthorne Notes Date Note Type Note Provider Name and Address Organization Details Recorded Time 03/20/2024 text/html Patient returns to clinic today for recent elevated liver enzymes. No family history of liver disease. No use of ETOH. No recent change in medications. She continues Mounjaro for diabetes. She was previously scheduled for a colonoscopy to further evaluate hematochezia however failed to stop Mounjaro and procedure has been rescheduled for 05/15/24. No recurrent episodes of hematochezia at this time. No abdominal pain, jaundice, nausea/vomiting. Normal GES from 02/2020. EGD/colonoscopy 06/2020 with mild gastritis and esophagitis. Colonoscopy with hyperplastic polyp and negative random colon biopsies. Peyton Johnson NP [address] [place] [address], [address], [place], [address], [facility] 03/20/2024 14:58:19 06/12/2024 text/html Patient returns to clinic today for follow up on elevated liver enzymes and colonoscopy from 05/15/24. Colonoscopy with internal hemorrhoids noted otherwise negative. Recommend repeat colonoscopy in 10 years for screening. No recurrent episodes of hematochezia. She continues stool softeners for constipation, reports daily bowel movements at this time. GERD remains well controlled with use of Pantoprazole and Famotidine. Comprehensive liver evaluation with positive GILBERTO, she has been evaluated by Rheumatology. 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 Liver ultrasound from 04/20/24 with heterogeneous appearance noted. She continues mounjaro for diabetes. No abdominal pain, jaundice, nausea/vomiting. Normal GES from 02/2020. EGD 06/2020 with mild gastritis and esophagitis. Peyton Johnson NP [address] [place] [address], [address], [place], [address], [facility] [place] 06/12/2024 12:32:54 08/28/2024 text/html patient is 54-year-old female with 5 month history of urinary tract infections. Her typical symptoms are dysuria and frequency. Urine culture from July 01 showed E coli. Patient states that she drinks mostly water and very little caffeine. Her bladder scan today is 85 cc. Her urinalysis today is normal and she denies any current symptoms. Primary care physician no was reviewed from July 01. Patient does have a history of diabetes. She is currently on oxybutynin for urinary symptoms. Apolinar Maria Jr, MD [address] [place] [address], [address], [place], [address], [facility] [place] 09/18/2024 09:58:26 12/18/2024 text/html Patient returns to clinic today for follow-up on hepatic steatosis. She continues mounjaro and has been successful with weight loss. she is feeling significantly better at this time. GERD remains well controlled with use of pantoprazole and famotidine. Continues to report daily bowel movements however does report occasional episodes of rectal discomfort secondary to hemorrhoids. Colonoscopy from 05/15/24 with internal hemorrhoids, otherwise negative. CADET fibrosure 04/2024 with moderate to severe steatosis with fibrosis F3-F4. Liver ultrasound from 04/20/24 with heterogeneous appearance noted. No abdominal pain, jaundice, nausea/vomiting. Normal GES from 02/2020. EGD 06/2020 with mild gastritis and esophagitis. Peyton Johnson NP [address] [place] [address], [address], [place], [address], [facility] [place] 12/19/2024 22:17:25 03/12/2025 text/html Patient is a 54-year-old white female who returns follow up for recurrent urinary tract infections. Patient was initially seen in August 2024 have an E coli UTI in June 2024. Risk factors were diabetes and incomplete bladder emptying. Her bladder scan shown a residual of 85 cc. She was placed on methenamine plus vitamin-C at that time. She stated that she was drinking plenty of fluids during her day. She was also given a prescription for intra Gricelda vaginal suppositories but were too expensive. She states she has been compliant with the methenamine and vitamin-C in his had 1 or 2 urinary tract infections since last year. These were treated by her primary care physician. The most recent 1 about 4 months ago at which time she was asymptomatic. Patient continues on oxybutynin for urinary urgency. Apolinar Maria Jr, MD [address], [address], [place], [address], [facility] [place] 03/12/2025 12:51:33 OBGyn Episode No OBEpisode recorded.
--- OUTSIDE RECORDS SUMMARY | 2025-04-28 13:48 | XMS_ITS | Encounter Summary ---
Author Organization [facility] [employer] Address [address] [place] [address] Care Team Providers Care Assistant Clinical Nurse Manager Name Role Phone Unavailable Primary Care Provider Unavailabl e Encounter Details Date Type Department Care Team (Late st Contact Info) Description 08/05/2021 Transcribed Document [facility] Family Medicine [address] [place] [id number] ProviderAl MD [address] [place] [id number] Social History Tobacco Use Types Packs/Day Years Used Date Smoking Tobacco: Never Assessed Comments Unknown Sex and Gender Information Value Date Recorded Sex Assigned at Not on file Legal Sex Female 6:11 PM CDT Gender Identity Not on file Sexual Orientation Not on file documented as of this encounter Miscellaneous Notes * Cerner Conversion Note - lA ProviderMD - 08/05/2021 11:50 AM CDT Patient Education Materials Follows: Trigger Finger Trigger finger, also called stenosing tenosynovitis, is a condition that causes a finger to get stuck in a bent position. Each finger has a tendon, which is a tough, cord-like tissue that connects muscle to bone, and each tendon passes through a tunnel of tissue called a tendon sheath. To move your finger, your tendon needs to glide freely through the sheath. Trigger finger happens when the tendon or the sheath thickens, making it difficult to move your finger. Trigger finger can affect any finger or a thumb. It may affect more than one finger. Mild cases may clear up with rest and medicine. Severe cases require more treatment. What are the causes? Trigger finger is caused by a thickened finger tendon or tendon sheath. The cause of this thickening is not known. What increases the risk? The following factors may make you more likely to develop this condition: ??? Doing activities that require a strong cartography supervisor. ??? Having rheumatoid arthritis, gout, or diabetes. ??? Being 40?60 years old. ??? Being female. What are the signs or symptoms? Symptoms of this condition include: ??? Pain when bending or straightening your finger. ??? Tenderness or swelling where your finger attaches to the palm of your hand. ??? A lump in the palm of your hand or on the inside of your finger. ??? Hearing a noise like a pop or a snap when you try to straighten your finger. ??? Feeling a catching or locking sensation when you try to straighten your finger. ??? Being unable to straighten your finger. How is this diagnosed? This condition is diagnosed based on your symptoms and a physical exam. How is this treated? This condition may be treated by: ??? Resting your finger and avoiding activities that make symptoms worse. ??? Wearing a finger splint to keep your finger extended. ??? Taking NSAIDs, such as ibuprofen, to relieve pain and swelling. ??? Doing gentle exercises to stretch the finger as told by your health care provider. ??? Having medicine that reduces swelling and inflammation (steroids) injected into the tendon sheath. Injections may need to be repeated. ??? Having surgery to open the tendon sheath. This may be done if other treatments do not work and you cannot straighten your finger. You may need physical therapy after surgery. Follow these instructions at home: If you have a splint: ??? Wear the splint as told by your health care provider. Remove it only as told by your health care provider. ??? Loosen it if your fingers tingle, become numb, or turn cold and blue. ??? Keep it clean. ??? If the splint is not waterproof: ? Do not let it get wet. ? Cover it with a watertight covering when you take a bath or shower. Managing pain, stiffness, and swelling If directed, apply heat to the affected area as often as told by your health care provider. Use the heat source that your health care provider recommends, such as a moist heat pack or a heating pad. ??? Place a towel between your skin and the heat source. ??? Leave the heat on for 20?30 minutes. ??? Remove the heat if your skin turns bright red. This is especially important if you are unable to feel pain, heat, or cold. You may have a greater risk of getting burned. If directed, put ice on the painful area. To do this: ??? If you have a removable splint, remove it as told by your health care provider. ??? Put ice in a plastic bag. ??? Place a towel between your skin and the bag or between your splint and the bag. ??? Leave the ice on for 20 minutes, 2?3 times a day. Activity ??? Rest your finger as told by your health care provider. Avoid activities that make the pain worse. ??? Return to your normal activities as told by your health care provider. Ask your health care provider what activities are safe for you. ??? Do exercises as told by your health care provider. ??? Ask your health care provider when it is safe to drive if you have a splint on your hand. General instructions ??? Take bgge-gab-tqcrurz and prescription medicines only as told by your health care provider. ??? Keep all follow-up visits as told by your health care provider. This is important. Contact a health care provider if: ??? Your symptoms are not improving with home care. Summary ??? Trigger finger, also called stenosing tenosynovitis, causes your finger to get stuck in a bent position. This can make it difficult and painful to straighten your finger. ??? This condition develops when a finger tendon or tendon sheath thickens. ??? Treatment may include resting your finger, wearing a splint, and taking medicines. ??? In severe cases, surgery to open the tendon sheath may be needed. This information is not intended to replace advice given to you by your health care provider. Make sure you discuss any questions you have with your health care provider. Document Revised: 03/23/2020 Document Reviewed: 03/23/2020 [employer] Patient Education ? 2020 [employer] Orthopedics Trigger Finger Trigger finger, also called stenosing tenosynovitis, is a condition that causes a finger to get stuck in a bent position. Each finger has a tendon, which is a tough, cord-like tissue that connects muscle to bone, and each tendon passes through a tunnel of tissue called a tendon sheath. To move your finger, your tendon needs to glide freely through the sheath. Trigger finger happens when the tendon or the sheath thickens, making it difficult to move your finger. Trigger finger can affect any finger or a thumb. It may affect more than one finger. Mild cases may clear up with rest and medicine. Severe cases require more treatment. What are the causes? Trigger finger is caused by a thickened finger tendon or tendon sheath. The cause of this thickening is not known. What increases the risk? The following factors may make you more likely to develop this condition: ??? Doing activities that require a strong cartography supervisor. ??? Having rheumatoid arthritis, gout, or diabetes. ??? Being 40?60 years old. ??? Being female. What are the signs or symptoms? Symptoms of this condition include: ??? Pain when bending or straightening your finger. ??? Tenderness or swelling where your finger attaches to the palm of your hand. ??? A lump in the palm of your hand or on the inside of your finger. ??? Hearing a noise like a pop or a snap when you try to straighten your finger. ??? Feeling a catching or locking sensation when you try to straighten your finger. ??? Being unable to straighten your finger. How is this diagnosed? This condition is diagnosed based on your symptoms and a physical exam. How is this treated? This condition may be treated by: ??? Resting your finger and avoiding activities that make symptoms worse. ??? Wearing a finger splint to keep your finger extended. ??? Taking NSAIDs, such as ibuprofen, to relieve pain and swelling. ??? Doing gentle exercises to stretch the finger as told by your health care provider. ??? Having medicine that reduces swelling and inflammation (steroids) injected into the tendon sheath. Injections may need to be repeated. ??? Having surgery to open the tendon sheath. This may be done if other treatments do not work and you cannot straighten your finger. You may need physical therapy after surgery. Follow these instructions at home: If you have a splint: ??? Wear the splint as told by your health care provider. Remove it only as told by your health care provider. ??? Loosen it if your fingers tingle, become numb, or turn cold and blue. ??? Keep it clean. ??? If the splint is not waterproof: ? Do not let it get wet. ? Cover it with a watertight covering when you take a bath or shower. Managing pain, stiffness, and swelling If directed, apply heat to the affected area as often as told by your health care provider. Use the heat source that your health care provider recommends, such as a moist heat pack or a heating pad. ??? Place a towel between your skin and the heat source. ??? Leave the heat on for 20?30 minutes. ??? Remove the heat if your skin turns bright red. This is especially important if you are unable to feel pain, heat, or cold. You may have a greater risk of getting burned. If directed, put ice on the painful area. To do this: ??? If you have a removable splint, remove it as told by your health care provider. ??? Put ice in a plastic bag. ??? Place a towel between your skin and the bag or between your splint and the bag. ??? Leave the ice on for 20 minutes, 2?3 times a day. Activity ??? Rest your finger as told by your health care provider. Avoid activities that make the pain worse. ??? Return to your normal activities as told by your health care provider. Ask your health care provider what activities are safe for you. ??? Do exercises as told by your health care provider. ??? Ask your health care provider when it is safe to drive if you have a splint on your hand. General instructions ??? Take cbmj-awh-cuttdis and prescription medicines only as told by your health care provider. ??? Keep all follow-up visits as told by your health care provider. This is important. Contact a health care provider if: ??? Your symptoms are not improving with home care. Summary ??? Trigger finger, also called stenosing tenosynovitis, causes your finger to get stuck in a bent position. This can make it difficult and painful to straighten your finger. ??? This condition develops when a finger tendon or tendon sheath thickens. ??? Treatment may include resting your finger, wearing a splint, and taking medicines. ??? In severe cases, surgery to open the tendon sheath may be needed. This information is not intended to replace advice given to you by your health care provider. Make sure you discuss any questions you have with your health care provider. Document Revised: 03/23/2020 Document Reviewed: 03/23/2020 [employer] Patient Education ? 2020 [employer] Pharmacology Local Anesthesia, Care After This sheet gives you information about how to care for yourself after your procedure. Your health care provider may also give you more specific instructions. If you have problems or questions, contact your health care provider. What can I expect after the procedure? After the procedure, it is common to have: ??? Numbness in the area where you were given local anesthetic medicine. This numbness usually wears off within a few hours. It should be completely gone after 24 hours. ??? Bruising, bleeding, or redness in the area where the medicine was given. Follow these instructions at home: If you had an injection: ??? Check the area where the medicine was injected every day for signs of infection. Check for: ? Redness, swelling, or pain. ? Fluid or blood. ? Warmth. ? Pus or a bad smell. General instructions ??? Follow instructions from your health care provider about how to take care of the area that was numbed. Protect the area from harm until the medicine wears off and you regain full feeling in the area. ??? If you have a wound or incision, keep it clean and dry. ??? Return to your normal activities as told by your health care provider. Ask your health care provider what activities are safe for you. ??? Take xofe-mee-urgkdns and prescription medicines only as told by your health care provider. Contact a health care provider if: ??? You have numbness at the procedure site that last more than 24 hours. ??? You have pain at the procedure site that is not controlled with the pain medicine that your health care provider gave you. ??? You have redness or swelling around the procedure site. ??? The injection area feels warm to the touch. ??? You have pus or a bad smell coming from the injection site. ??? You have a fever. Get help right away if: ??? You have trouble breathing. ??? You have chest pain. Summary ??? After the procedure, it is common to have numbness for many hours in the area where you were given local anesthetic medicine. ??? Protect the numbed area from harm until the medicine wears off and you regain full feeling in the area. This information is not intended to replace advice given to you by your health care provider. Make sure you discuss any questions you have with your health care provider. Document Revised: 02/18/2021 Document Reviewed: 02/18/2021 [employer] Patient Education ? 2020 [employer]. documented in this encounter Plan of Treatment Not on file documented as of this encounter Visit Diagnoses Not on filedocumented in this encounter
--- OUTSIDE RECORDS SUMMARY | 2025-04-28 13:48 | XMS_ITS | Encounter Summary ---
Author Organization [facility] In iatives Address [address] [place] [address] Care Team Providers Care Regional Director Of Admissions Name Role Phone Unavailable Primary Care Provider Unavailabl e Encounter Details Date Type Department Care Team ([facility] st Contact Info) Description 08/05/2021 Transcribed Document [facility] [facility] Family Medicine [facility] [place] [address] ProviderAl MD [address] [place] [address] [id number] Social History Tobacco Use Types Packs/Day Years [...] 08/05/2021 10:27 AM CDT [facility] Main OR PostOp Summary Primary Physician: DIANA ZAPIEN JR, MD-PLA Finalized Date/Time: 08/05/21 12:02:17 Pt. Name: NESSA HAWTHORNE RABIA Bernal./Sex: 1970 Female Med Rec #: [id number] Physician: DIANA ZAPIEN JR, MD-PLA Financial #: [id number] Pt. Type: O Room/Bed: Admit/Disch: 08/05/21 07:20:00 - Institution: [facility] Main OR PostOp Case Times Entry 1 In PACU II 08/05/21 10:46:00 Ready for PACU II 08/05/21 12:02:00 Discharge Discharge from PACU 08/05/21 12:02:00 II Last Modified By: Charu Hatfield RN 08/05/21 12:02:14 [facility] Main OR PostOp Case Times Audit 08/05/21 12:02:14 Business Line Manager: ROLDAN Modifier: CARRIEC <+> 1 Ready for PACU II Discharge <+> 1 Discharge from PACU II Finalized By: Charu Hatfiled RN Document Signatures Signed By: Charu Hatfield RN 08/05/21 12:02 Electronically signed by Mark Donovan Conversion Underwriting Account Representative Cerner at 03/10/2023 5:40 PM CDT documented in this encounter Plan of Treatment Not on file documented as of this encounter Visit Diagnoses Not on filedocumented in this encounter
--- OUTSIDE RECORDS SUMMARY | 2025-04-28 13:48 | XMS_ITS | Encounter Summary ---
Author Organization Healthcare Address [address] [place] [address] Care Team Providers Care Ethanol Operator Name Role Phone Alessandra Garza DO Primary Care Provider [phone] Reason for Visit * Reason Comments Med Refill Encounter Details Date Type Department Care Team (Late st Contact Info) Description 05/14/2024 Refill Nadiya Cam Endocrinology [address] [place] [address] Bernadette Ledesma, SUPERVISOR CELLARS [address] [facility] [address] [place] [address] Social History Tobacco Use Types [...] encounter Miscellaneous Notes * Telephone Encounter - Nia Mccord, NicoD - 05/14/2024 8:28 AM EDT Per protocol, 1 medication(s), Mounjaro 2.5mg, has been refused due to: Refill not appropriate. Patient on different strength. documented in this encounter Plan of Treatment Upcoming Encounters Date Type Department Care Team (Late st Contact Info) Description 07/24/2025 2:20 PM EDT Office Visit Nadiya Lara [facility] Endocrinology [address] [place] [id number] Bernadette Ledesma, SUPERVISOR CELLARS [address] [place] [address] documented as of this encounter Visit Diagnoses Not on filedocumented in this encounter Additional Health Concerns Assessment Noted Time A fall risk assessment has been complete d for the patient 09/13/2023 1:41 PM EDT A Body Mass Index follow-up plan has been documented for the patient 04/03/2024 3:18 PM EDT documented as of this encounter Care Teams Ethanol Operator Relationship Specialty Start Date End Date Alessandra Garza DO [address] [place] [address] [place] [address] PCP - General 04/02/21 documented as of this encounter
--- OUTSIDE RECORDS SUMMARY | 2025-04-28 13:48 | XMS_ITS | Encounter Summary ---
Author Organization [facility] In iatives Address [address] [place] [address] Care Team Providers Care Garbage Truck Helper Name Role Phone Unavailable Primary Care Provider Unavailabl e Encounter Details Date Type Department Care Team ([facility] st Contact Info) Description 08/05/2021 Transcribed Document [facility] [place] [facility] [place] [address] ProviderAl MD [address] [place] [address] [id number] Social History Tobacco Use Types Packs/Day Years Used Date Smoking Tobacco: Never Assessed Comments Unknown Sex and Gender Information Value Date Recorded Sex Assigned at Not on file Legal Sex Female 6:11 PM CDT Gender Identity Not on file Sexual Orientation Not on file documented as of this encounter Miscellaneous Notes * Cerner Conversion Note - Historical ProviderMD - 08/05/2021 11:58 AM CDT [place] [id number] NESSA HAWTHORNE :1970 Visit Time:08/05/2021 What to do next Instructions From Your Care Team No heavy lifting over 10 pounds Keep dressing Clean and dry and do not remove dressing. Take ibuprofen as directed. Keep hand elevated on 2 pillows to decrease swelling. Discharge Follow Up Instructions: Call [phone] to schedule appointment in 2 weeks Activity: Discharge Activity: No heavy lifting over 10 lbs Follow-Up Appointments Follow Up with DIANA ZAPIEN When 08/18/2021 11:00 AM EDT Comments Appointment has been made Where: [address] [facility] 2nd Floor [place] [id number]- [facility] (1) Medications What How Much When Instructions Next Dose atorvastatin 80 Milligram(s) Oral Every Day cholecalciferol (Vitamin D3) 5,000 International Units Oral Every Day diazePAM (diazePAM 2 mg oral tablet) Oral Three Times A Day doxepin (doxepin 50 mg oral capsule) 1 Capsule(s) Oral Once a day (at bedtime) ergocalciferol (Vitamin D2) 50,000 International Units Oral Every Day flax (Flax Seed Oil) furosemide Every Day gabapentin (gabapentin 800 mg oral tablet) 1 Tablet(s) Oral Four Times A Day insulin regular (HumuLIN R 100 units/ mL injectable solution) 185 Unit(s) SubCutaneous Two Times A Day insulin regular (HumuLIN R) 10 Unit(s) SubCutaneous Before Lunch lisinopril 5 Milligram(s) Oral Every Day multivitamin with minerals (One-A-Day Women) 1 Tablet(s) Oral Every Day Non Formulary (apple cider vinegar) 450 Milligram(s) Oral Every Day oxybutynin (oxybutynin 5 mg/ 24 hours oral tablet, extended release) 1 Tablet(s) Oral Every Day pantoprazole 40 Milligram(s) Oral Every Day pioglitazone 45 Milligram(s) Oral Every Day promethazine 25 Milligram(s) Oral As needed for as needed for nausea/vomiting Take your medications faithfully. Do NOT skip medication. Do NOT stop taking medications without the direction of a physician. Carry a list of your medications with you at all times, and take this medication list with you to your first follow up visit. Report any side effects. Avoid herbal remedies unless discussed with your physician. As part of your treatment plan, your physician may have prescribed a limited course of a controlled substance. This medication may be given to help people with moderate or severe pain or for other medical conditions, but there are risks involved with treatment. Common side effects may include nausea, constipation, drowsiness, sweating, itching, dry mouth, and rash. More serious side effects may include cognitive and motor impairment, like problems with thinking, concentrating, alertness, and movement (e.g. slowed reflexes), and driving and operating heavy machinery can be dangerous. It is important for you to talk to your physician if you have these side effects or questions. These controlled substances can produce physical dependence and be habit-forming if taken for an extended period of time, which means that the body has gotten used to them and may experience withdrawal symptoms if they are abruptly stopped. Withdrawal symptoms can include runny nose, sweating, goose bumps, diarrhea, abdominal cramping, rapid heartbeat, difficulty sleeping, and nervousness. Please dispose of unused and medications per pharmacy guidance. Education Materials Local Anesthesia, Care After This sheet gives [...] activities are safe for you. ??? Take pegs-tij-erjadix and prescription medicines only as told by [...] provider. Document Revised: 02/18/2021 Document Reviewed: 02/18/2021 [email or web address] Patient Education ?? 2020 [email or web address]. Trigger Finger Trigger finger, also called stenosing [...] ??? Doing activities that require a strong topographic computator. ??? Having rheumatoid arthritis, gout, or diabetes. ??? Being 40???60 years old. ??? Being female. What are [...] source. ??? Leave the heat on for 20???30 minutes. ??? Remove the heat if your [...] Leave the ice on for 20 minutes, 2???3 times a day. Activity ??? Rest your [...] on your hand. General instructions ??? Take jzjv-iov-nsujjdj and prescription medicines only as told by [...] provider. Document Revised: 03/23/2020 Document Reviewed: 03/23/2020 [employer] Patient Education ?? 2020 [email or web address]. Trigger Finger Trigger finger, also called stenosing [...] ??? Doing activities that require a strong topographic computator. ??? Having rheumatoid arthritis, gout, or diabetes. ??? Being 40???60 years old. ??? Being female. What are [...] source. ??? Leave the heat on for 20???30 minutes. ??? Remove the heat if your [...] Leave the ice on for 20 minutes, 2???3 times a day. Activity ??? Rest your [...] on your hand. General instructions ??? Take oiuc-coj-nctqfvl and prescription medicines only as told by [...] provider. Document Revised: 03/23/2020 Document Reviewed: 03/23/2020 [employer] Patient Education ?? 2020 [employer] Emergency Awareness and Preventative Care STROKE is an EMERGENCY Every Minute Counts Act FAST and Check for these signs: FACE Does the face look uneven? ARM Does one arm drift down? SPEECH Does their speech sound strange? TIME Call at any sign of stroke Stroke Risk Factors Atrial Fibrillation (irregular heartbeat) Diabetes Family history of stroke Heart Disease Heavy alcohol use High Blood Pressure High Cholesterol Physical inactivity and obesity Smoking Cigarette Smoking The facts are clear, cigarette smoking will shorten your life. Smoking can cause many illnesses along the way. As a healthcare provider, we recommend that you stop smoking. Assistance with quitting is available by contacting 1-528-DHVMNOW. This is a free resource providing counseling, support, and referral. Or you may contact your personal physician. National Suicide Prevention Lifeline: The National Suicide Prevention Lifeline is a national network of local crisis centers that provides free and confidential emotional support to people in suicidal crisis or emotional distress 24 hours a day, 7 days a week. Don't Wait! Stop a Heart Attack Before it Starts What is a heart attack? A heart attack is damage or to a part of the heart from severely decreased or lack of blood flow to the heart. Over time, arteries can become narrow from the buildup of fat and cholesterol, which is called plaque. The plaque can rupture causing a blood clot to form. When the blood clot forms, the artery can become severely narrowed or completely blocked, causing a heart attack. Heart attack is the leading cause of in the [place]. 85% of muscle damage occurs within the first 2 hours. Delay in the recognition of heart attack symptoms increases the chances of . Know the early symptoms of a heart attack: Nausea Feeling of fullness in chest Jaw Pain Pain that travels down one or both arms Fatigue/being tired Anxiety Back Pain Chest pressure, squeezing, or discomfort Shortness of breath Sweating, or a cold sweat Feeling of impending doom There are unusual signs of a heart attack, too! Women, the elderly, and diabetics may present with atypical symptoms: Fainting/dizziness Weakness Confusion Risk Factors for a Heart Attack Some heart disease risk factors, such as age and family history, cannot be changed. Others, like smoking and lack of exercise, can be changed. Smoking High Cholesterol High Blood Pressure Family History Obesity Age Gender (Males are at higher risk) Lack of Exercise Diabetes Diet Stress Excessive Alcohol Intake If you or someone you know is experiencing the signs and symptoms of a heart attack, DON???T DELAY. Call immediately and seek help. If someone collapses, perform CPR! Do not attempt to drive if you are having symptoms of heart attack. Hands-Only CPR Why Hands-Only CPR? Hands-Only CPR has been shown to be as effective as conventional CPR for cardiac arrests that occur outside of a hospital. Survival depends on immediately receiving CPR from someone nearby. How do you perform Hands-Only CPR? There are two easy steps: Call 9-1-1 if you see a teen or adult collapse Push hard and fast in the center of the chest at a beat of 100 beats per minute. Save a life! 4 WAYS TO GET AHEAD OF SEPSIS SEPSIS is a MEDICAL EMERGENCY. Time matters! Infections put you and your family at risk for a life-threatening condition called sepsis. Sepsis is the body's extreme response to an infection. It is life-threatening, and without timely treatment, sepsis can rapidly lead to tissue damage, organ failure, and . Sepsis happens when an infection you already have-in your skin, lungs, urinary tract or somewhere else-triggers a chain reaction throughout your body. 1 PREVENT INFECTIONS Take good care of chronic conditions. Talk to your doctor about getting the recommended vaccines. 2 PRACTICE GOOD HYGIENE Wash your hands frequently. Keep cuts or open sores clean and covered until they are healed. 3 KNOW THE SYMPTOMS Confusion or disorientation Shortness of breath High heart rate Fever, shivering, or feeling very cold Extreme pain or discomfort Clammy or sweaty skin 4 ACT FAST Get medical care IMMEDIATELY if you suspect sepsis or if you have an infection that is not getting better or is getting worse. To learn more about sepsis and how to prevent infections, visit www.cdc.gov/sepsis. Test Results Laboratory or Other Results This Visit (last charted value for your 08/05/2021 visit) Microbiology 08/03/2021 2:00 PM SARS-CoV-2 (COVID19 PCR): Negative General Chemistry 08/05/2021 11:18 AM Glucose POC2: 322 mg/dL -- Normal range between ( 70 and 110 ) Endocrinology 08/05/2021 8:45 AM HCG Urine Qualitative: Negative Patient Name:NESSA HAWTHORNE I have received this information and was given the opportunity to ask questions. Patient/Director Women Name: Patient/Director Women Signature: Relationship to Patient: Clinician/Hospital Director Women Signature: Date: documented in this encounter Plan of Treatment Not on file documented as of this encounter Visit Diagnoses Not on filedocumented in this encounter
--- OUTSIDE RECORDS SUMMARY | 2025-04-28 13:48 | XMS_ITS | Continuity of Care Document ---
Author Organization [facility] [place] Address [address] [place] [address] Care Team Providers Care Transfer Table Operator Helper Name Role Phone PAUL TATE Primary Care Provider Assessment No assessment recorded. Plan of Treatment Reminders Order Date Submit Date Provider Last Modified By Organization Details Last Modified Time Details Appointments OV EST 15 2024 02:15P M Peyton Johnson NP Not available Not available Not available OV EST 15 2024 09:30A M Apolinar Maria Jr, MD Not available Not available Not available Lab None recorded. Referral None recorded. Procedures None recorded. Surgeries None recorded. Imaging None recorded. Medication Orders nitrofura ntoin macrocrys jamil 50 mg capsule 2024 025 [facility][id number], [address] [place], [address], 03/12/2025 11:49:48 Patient TargetsNo targets recorded. Patient InstructionsNo instructions recorded. Reason for Referral None Reported. Problems Name Problem SNOMED Code Status Onset Date Resolution Date Notes Provider Name and Address Organization Details Recorded Time Urinary incontinence 091835305 Active 2022 Not Available [facility] 3 00:02:18 History of calculus of kidney 466306303 Active 2022 Not Available [facility] 3 00:02:18 Recurrent urinary tract infection 189884456 Active 2022 Not Available [facility] 3 00:02:18 Hypertensive disorder 05071235 Active 2022 Not Available [facility] 3 00:02:18 Obstructive sleep apnea syndrome 02339979 Active 2022 Not Available [facility] 3 00:02:19 Hyperlipidemi a 22164994 Active 2022 Not Available [facility] 3 00:02:19 Diabetes mellitus 26771735 Active 2022 Not Available [facility] 3 00:02:19 Irritable bowel syndrome 80112943 Active 2022 Not Available [facility] 3 00:02:18 Generalized abdominal pain 314303852 Active 2022 Not Available [facility] 3 00:02:18 Nausea 340549756 Active 2022 Not Available [facility] 3 00:02:18 Gastro-esopha geal reflux disease with esophagitis 534566997 Active 2022 Not Available [facility] 3 00:02:18 Irritable bowel syndrome characterized by constipation 641838124 Active 2022 Not Available [facility] 3 00:02:19 Hematochezia 540209032 Active 2023 Peyton Johnson NP [address], [address], [place], [address] , [place] - [facility] - [place] [facility] [place] 4 10:11:31 Abnormal liver function 26893687 Active 2023 Peyton Johnson NP [address], [address], [place], [address] , [place] - [facility] - [place] & [place] 4 13:59:04 Internal hemorrhoids 96140644 Active 2023 Peyton Johnson NP [address], [address], [place], [address] , [place] [facility] [place] 4 12:19:16 Metabolic dysfunction-a ssociated steatohepatit is 304667952 Active 2023 Peyton Johnson NP [address], [address], [address] , [place] - [facility] - [place] 4 12:32:36 Seizure disorder 789884499 Active 2023 René montgomery, [place] - [facility] - [place] 4 14:18:39 Notes:Some problems listed i n Document: #[id number] could not be added to this patient's chart. Please review this document and add these problems to the patient's chart manually as needed. Problem Notes None recorded. Procedures Surgical History Date Name Laterality Status Provider Name and Address Organization Details Recorded Time 3 completed Marlen Fabricio [place] [facility] [place] 06/12/2024 11:54:58 1 Date of Last Colonoscopy completed Marlenchau HAMMER - [facility] - [place] [facility] [place] 06/12/2024 11:54:58 7 Colonoscopy completed Ester HAMMER - [facility] - [place] [facility] [place] 05/31/2023 10:08:52 7 EGD/Endoscopy completed Ester HAMMER - [facility] - [place] & [place] 05/31/2023 10:09:02 2 section completed Ester HAMMER - [facility] [place] 05/31/2023 10:08:45 3 section completed Ester HAMMER - [facility] - [place] & [place] 05/31/2023 10:08:42 biopsy of breast completed Ester HAMMER - [facility] - [place] 05/31/2023 10:09:12 EGD/Endoscopy completed Peyton Johnson NP [address] [facility], [address], [place], [address], [place] - [facility] [place] 05/31/2023 10:32:05 Colonoscopy completed Peyton Johnson NP [address] [facility], [address], [place], [address], [place] - [facility] [place] 05/31/2023 10:32:25 colonoscopy completed Antonieta Perera [place] - [facility] [place] 05/30/2024 09:47:27 Imaging Results None [...] Not Available Not Available [employer] Jonathon 2 Harts USE TO TEST BLOOD GLUCOSE DX E11.9 [...] Updated DateTime 03/12/2025 157.48 cm 50.9 kg/m2 995709.4 g 98.1 [degF] Dino HAMMER [facility] & [place] 03/12/2025 10:39:59 Social History Question Answer Notes LastModified by Organizat InToTally Details LastModified Time Tobacco Smoking Status Current Every Day Smoker René montgomery, HARMAN Devi [facility] & [place] 08/28/2024 14:20:56 Do [...] anxious, or unable to sleep at night)? [id number] Information not available 06/12/2024 Family History Relationship Description Onset Age of this Age Resolved Age Notes LastModified by Organization Details LastModified Time Mother Hyperlipidem ia [email or web address] Not available 2024 13:17:16 Mother Hypertensive disorder [email or web address] Not available 05/31 10:06:29 Mother Heart failure dec [email or web address] Not available 2024 13:17:16 Brother Myocardial infarction [email or web address] Not available 05/20 10:06:43 Brother Disorder of endocrine system pt. added direct ly (07/30) [email or web address] Not available 07/30/2023 14:55:27 Brother Overdose dec Not availabl e 12/18/2024 13:17:16 Sister Disorder of endocrine system pt. added direct ly (07/30) [email or web address] Not available 07/30/2023 14:55:27 Medical History Condition Response Kidney Stones Y Obstructive Sleep Apnea Y Vision or Eye Problems Y Arthritis Y Rheumatoid Arthritis Y Headaches Y Bleeding Disorder Y Clotting Disorder Y High Cholesterol Y Diabetes Y Seizures/Epilepsy Y Hyperlipidemia Y Reflux/GERD Y Sleep Apnea Y Heart Disease N Hypertension Y Gynecological History Statement/Question Response Date of Last Colonoscopy 07/29/2021 01/10/2023 Date of LMP 11/23/2020 Sexually Active? N Obstetrics History GPAL:G 2 P 2 0 0 2 Type Value Full Term 2 Living 2 Total 2 Past Encounters Encounter ID Performer Location Encounter Start Date Encounter Closed Date Diagnosis/Indication Diagnosis SNOMED-CT Code Diagnosis ICD10 Code Diagnosis Note [id number] Apolinar Maria Jr, MD [facility] [address] [address] 03/12/2025 10:12:02 03/12/2025 11:08:23 Recurrent urinary tract infection [id number] N39.0 54-year-ol d white female with history [...] by Organization Details LastModified Time None Recorded Payers Encounter Date Sequence Insurance Name Policy Number Policy Nolasco Covered Member ID Nolasco Member ID Guarantor Name 03/12/2025 1 [employer] (MEDICARE REPLACEMENT/A DVANTAGE - PPO) Nessa Garcia [id number] Nessa Garcia Notes Date Note Type Note Provider Name and Address Organization Details Recorded Time 03/12/2025 text/html Patient is a 54-year-old white [...] for urinary urgency. Apolinar Maria Jr, MD [address] [place] [address], [address], [place], [address], [facility] - [place] & [place] 03/12/2025 12:51:33 OBGyn Episode No OBEpisode recorded.
--- OUTSIDE RECORDS SUMMARY | 2025-04-28 13:48 | XMS_ITS | Encounter Summary ---
Author Organization [facility] In [facility] Address [address] [place] [address] Care Team Providers Care Engineering Executive Name Role Phone Unavailable Primary Care Provider Unavailabl e Encounter Details Date Type Department Care Team ([facility] st Contact Info) Description 08/05/2021 Transcribed Document [facility] [place] [facility] [place] [address] ProviderAl MD [address] [place] [address] [id number] Social History Tobacco Use Types Packs/Day Years [...] 08/05/2021 10:27 AM CDT [facility] Main OR PreOp Summary Primary Physician: DIANA ZAPIEN JR, MD-PLA Finalized Date/Time: 08/05/21 10:49:58 Pt. Name: NESSA HAWTHORNE RABIA Bernal./Sex: 1970 Female Med Rec #: [id number] Physician: DIANA ZAPIEN JR, MD-PLA Financial #: [id number] Pt. Type: O Room/Bed: Admit/Disch: 08/05/21 07:20:00 - [place] [facility] [place] Case Times Entry 1 In Preop 08/05/21 07:30:00 Ready for Holding n/a Room Patient Ready for 08/05/21 08:15:00 Surgery Patient Out of Preop 08/05/21 10:05:00 Patient Out of n/a Holding Room Last Modified By: Sheila Hughes Rn 08/05/21 10:49:53 Finalized By: Sheila Hughes Rn Document Signatures Signed By: Sheila Hughes Rn 08/05/21 10:49 Electronically signed by [facility] Conversion Rn Private Duty Cerner at 03/12/2023 7:49 PM CDT documented in this encounter Plan of Treatment Not on file documented as of this encounter Visit Diagnoses Not on filedocumented in this encounter
--- OUTSIDE RECORDS SUMMARY | 2025-04-28 13:49 | XMS_ITS | Encounter Summary ---
Author Organization Healthcare Address [address] [place] [address] Care Team Providers Care Business Intelligence Manager Name Role Phone Alessandra Garza DO Primary Care Provider [phone] Reason for Visit * Reason Comments Med Refill Encounter Details Date Type Department Care Team ([facility] Contact Info) Description 11/26/2021 Refill [facility] Endocrinology [address] [place] [address] Bernadette Ledesma, SENA [address] [address] Social History Tobacco Use Types Packs/Day Years Used Date Smoking Tobacco: Every Day Smokeless Tobacco: Never Alcohol Use Standard Drinks/Week Comments No 0 (1 standard drink = 0.6 oz pur e alcohol) Comments Unknown Sex and Gender Information Value Date Recorded Sex Assigned at Not on file Legal Sex Female 7:48 PM EDT Gender Identity Not on file Sexual Orientation Not on file COVID-19 Exposure Response Date Recorded In the last month, have you been in contact with someone who was confirmed or suspected to have Coronavirus / COVID-19? No / Unsure 11/23/2021 8:21 AM EST documented as of this encounter Plan of Treatment Upcoming Encounters Date Type Department Care Team ([facility] Contact Info) Description 07/24/2025 2:20 PM EDT Office Visit [facility] Endocrinology [address] [place] [address] Bernadette Ledesma, HANDS HANGER 4 [facility] [address] [place] [address] documented as of this encounter Visit Diagnoses Not on filedocumented in this encounter Additional Health Concerns Assessment Noted Time A fall risk assessment has been complete d for the patient 11/23/2021 9:11 AM EST documented as of this encounter Care Teams Business Intelligence Manager Relationship Specialty Start Date End Date Alessandra Garza DO [address] [place] [address] PCP - General 04/02/21 documented as of this encounter
--- OUTSIDE RECORDS SUMMARY | 2025-04-28 13:49 | XMS_ITS | Encounter Summary ---
Author Organization [facility] Address [address] [place] [address] Care Team Providers Care Ciaio Counter Molder Name Role Phone Unavailable Primary Care Provider Unavailabl e Encounter Details Date Type Department Care Team ([facility] st Contact Info) Description 08/05/2021 Transcribed Document [facility] [address] [place] [address] ProviderAl MD [address] [place] [address] Social History Tobacco Use Types Packs/Day Years Used Date Smoking Tobacco: Never Assessed Comments Unknown Sex and Gender Information Value Date Recorded Sex Assigned at Not on file Legal Sex Female 6:11 PM CDT Gender Identity Not on file Sexual Orientation Not on file documented as of this encounter Miscellaneous Notes * Cerner Conversion Note - Al Peterson MD - 08/05/2021 10:45 AM CDT DATE OF PROCEDURE: 08/05/2021 SURGEON: Apolinar Mckenzie Jr, MD PREOPERATIVE DIAGNOSIS: Left trigger thumb. POSTOPERATIVE DIAGNOSIS: Left trigger thumb. PROCEDURE PERFORMED: Left trigger thumb release. ANESTHESIA: Local MAC. INDICATIONS FOR PROCEDURE: The patient is a 51-year-old female with a history of left trigger thumb, refractory to medical management, present this time for surgical release of the A1 shailesh. DESCRIPTION OF PROCEDURE: The patient was taken to the operating room on 08/05/2021, where she was first given IV sedation. Next, her forearm, arm, and hand were prepped and draped in normal sterile fashion. Next, after the appropriate time-out on her left side, I performed a metacarpal block anesthetic to her left thumb using 1% lidocaine with 0.5% Marcaine. Next, her arm was elevated, exsanguinated with an Esmarch bandage. Tourniquet inflated to 250 mmHg. Next, I made an incision in the MP flexion crease of her left thumb. At this point, the patient had some airway spasm, which required after anesthesia had stabilized her airway, I then continued with the procedure with the tourniquet down. The nerves were identified however. I then divided the A1 shailesh. I retrieved the flexor pollicis longus tendon through the wound and they appeared normal. I then flexed and extended the IP joint of the thumb while looking at the proximal portion of the oblique shailesh to make sure there was no residual triggering. There was none. At this point, I irrigated the wound with copious amounts of saline and closed the incision with a running 5-0 nylon modified horizontal mattress suture. The patient was then placed in a bulky soft bandage. She tolerated the procedure well and was sent to discharge area in stable condition. /[id number] MD KISHA Harris Jr/MYRON / KISHA / MODL /[id number] documented in this encounter Plan of Treatment Not on file documented as of this encounter Visit Diagnoses Not on filedocumented in this encounter
--- OUTSIDE RECORDS SUMMARY | 2025-04-28 13:49 | XMS_ITS | Encounter Summary ---
Author Organization Healthcare Address [address] [place] [address] Care Team Providers Care Erp Project Manager Name Role Phone Alessandra Garza DO Primary Care Provider [phone] Reason for Visit * Reason Comments Med Refill Encounter Details Date Type Department Care Team (Late st Contact Info) Description 05/27/2023 Refill [facility] Endocrinology [address] [place] [address] Bernadette Ledesma, LIME SLAKER [address] [facility] [address] [place] [address] Social History Tobacco Use Types Packs/Day Years Used Date Smoking Tobacco: Former Cigarettes Smokeless Tobacco: Never Comments:Quit 01/10 Alcohol Use Standard Drinks/Week Comments No 0 (1 standard drink = 0.6 oz pur e alcohol) Comments Unknown Sex and Gender Information Value Date Recorded Sex Assigned at Not on file Legal Sex Female 7:48 PM EDT Gender Identity Not on file Sexual Orientation Not on file documented as of this encounter Miscellaneous Notes * Telephone Encounter - Adele Hill - 05/29/2023 10:28 AM EDT Per protocol, 1 medication(s), ozempic, has been refused due to: Refill requested too soon- last sent 6 months of refills on 02/27/23 documented in this encounter Plan of Treatment Upcoming Encounters Date Type Department Care Team (Late st Contact Info) Description 07/24/2025 2:20 PM EDT [facility] [address] [place] [address] Bernadette Ledesma, LIME SLAKER [address] [place] [address] documented as of this encounter Visit Diagnoses Not on filedocumented in this encounter Additional Health Concerns Assessment Noted Time A fall risk assessment has been complete d for the patient 03/16/2022 2:18 PM EDT A Body Mass Index follow-up plan has been documented for the patient 02/27/2023 1:02 PM EDT documented as of this encounter Care Teams Erp Project Manager Relationship Specialty Start Date End Date Alessandra Garza DO [address] [place] [address] [place] [address] PCP - General 04/02/21 documented as of this encounter
--- OUTSIDE RECORDS SUMMARY | 2025-04-28 13:49 | XMS_ITS | Encounter Summary ---
Author Organization [facility] Address [address] [place] [address] Care Team Providers Care Paper Folder Name Role Phone Unavailable Primary Care Provider Unavailabl e Encounter Details Date Type Department Care Team (Late st Contact Info) Description 12/03/2020 Transcribed Document [facility] [place] [facility] [place] [address] ProviderAl MD [address] [place] [id number] Social History Tobacco Use Types Packs/Day Years Used Date Smoking Tobacco: Never Assessed Comments Unknown Sex and Gender Information Value Date Recorded Sex Assigned at Not on file Legal Sex Female 6:11 PM CDT Gender Identity Not on file Sexual Orientation Not on file documented as of this encounter Miscellaneous Notes * Cerner Conversion Note - Historical ProviderMD - 12/03/2020 10:34 AM ASSEMBLER CRIMPER PAT Adult Entered On: 12/03/2020 10:38 EST Performed On: 12/03/2020 10:34 EST by Mickie Lemus Rn Vital Measurements Temperature Source : Temporal artery scanning Temperature Mode : Fahrenheit Temperature, Fahrenheit : 98.0 Deg F Clinical Temperature, C : 36.7 Deg C Peripheral Pulse Rate : 91 bpm Respiratory Rate : 18 Breaths/Min Systolic Blood Pressure : 177 mmHg (HI) Diastolic Blood Pressure : 81 mmHg Oxygen Saturation : 96 % Oxygen Therapy Mode : Room air Mickie Lemus Rn - 12/03/2020 10:34 EST Height and Weight, Clinical Dosing Height Source : Stated Height Entry Format : [place] Height, Feet : 5 ft(Converted to: 152 cm, 60 Inch) Height, Inches : 2 Inch(Converted to: 0 ft 2 Inch, 5.08 cm) Clinical Height : 157.48 cm Weight Source : Standing scale Weight Entry Format : [place] Clinical Dosing Weight : 121.82 kg Weight, Pounds : 268 lb Body Surface Area (BSA) : 2.17 m2 Body Mass Index : 49.1 kg/m2 (>HHI) Bryan Body Weight : 50 kg Mickie Lemus Rn - 12/03/2020 10:34 EST Health Histories Smoking Status : 5-9 cigarettes (between 1/4 to 1/2 pack)/day in last 30 days Smokeless Tobacco Status : Never Desires Tobacco Cessation Medication : No Reason for No Tobacco Cessation Medication : Refuses FDA approved medications Mickie Lemus Rn - 12/03/2020 10:34 EST Social History (As Of: 12/03/2020 10:38:48 EST) Tobacco: Smoking Status Current every day smoker. Five or more cigarettes per day Smoking Frequency Within Last 30 Days. Use in Last 12 Months: Cigarettes. Years of Use: 20. Packs/Tins Daily: 1. (Last Updated: 04/02/2018 10:35:35 EDT by RABIA CRAIN, JACINTA) 5-9 cigarettes (between 1/4 to 1/2 pack)/day in last 30 days Smoking Status. Never Smokeless Tobacco Status. (Last Updated: 12/03/2020 10:34:14 EST by Mickie Lemus, Rn) Alcohol: Alcohol Use History No. Use in Last 12 Months: No. (Last Updated: 12/03/2020 10:34:21 EST by Mickie Lemus, Rn) Substance Abuse: Drug Use Hx: No. Use in Last 12 Months: No. (Last Updated: 12/03/2020 10:34:27 EST by Mickie Lemus, Rn) Infectious Disease History Has the patient ever been tested for COVID-19? : Yes, Patient stated results Negative Date of COVID-19 test known? : No Does patient have symptoms of COVID-19? : No COVID19 Screening : No Experiencing Infectious Disease Symptoms : No symptoms Physical contact outside [place] in the last 30 days : No Infectious Disease History : Chicken pox/Shingles, Influenza, Measles Tuberculosis Symptoms : None Mickie Lemus Rn - 12/03/2020 10:34 EST COVID19 PreProcedure Screening Is this an Emergent or Add on Procedure? : No Date PreProcedure COVID-19 test known? : No Has patient been isolated since the test : N/A - PreProcedure, in-person visit Exposed to COVID19 symptoms since test? : N/A - PreProcedure, in-person visit Mickie Lemus Rn - 12/03/2020 10:34 EST Anesthesia/Transfusion History Family History of Anesthesia Reaction : No prior transfusion(s) Transfusion History : Prior anesthesia reaction Type of Anesthesia Reaction : Excessive nausea/vomiting Family History of Anesthesia Reaction : None Mickie Lemus Rn - 12/03/2020 10:34 EST Advance Directive Patient has Advance Directive *Q : No, patient refuses Advance Directive information Mickie Lemus Rn - 12/03/2020 10:34 EST [place] Suicide Severity Rating Scale (C-SSRS) CSSRS Past Month Wish to be : No CSSRS Past Month Suicidal Thoughts : No CSSRS Lifetime Suicide Behavior : No Suicide Severity Rating Score : 0 Suicide Severity Rating : No Additional Care Required at this time Mickie Lemus Rn - 12/03/2020 10:34 EST Psychosocial History Do You Have a History of the Following? : Patient denies history Currently in Unsafe Situation : No Mickie Lemus Rn - 12/03/2020 10:34 EST Teaching/Learning Assessment Barriers To Learning : None evident Individuals Taught : Patient Readiness to Learn : Cooperative Readiness to Learn : Explanation, Printed materials Learning Style Preferences Patient : Printed materials, Verbal explanation Mickie Lemus Rn - 12/03/2020 10:34 EST Education Topics, Periop Preadmission Perioperative Education Grid Arrival Time/Place : Verbalizes understanding CHG Preoperative Bathing/Cloths : Verbalizes understanding NPO Status/Directions : Verbalizes understanding Preprocedure Preparations : Verbalizes understanding Preprocedure Tests/Labs : Verbalizes understanding Responsible Adult : Verbalizes understanding Take/Hold Medications Pre-Procedure : Verbalizes understanding Mickie Lemus Rn - 12/03/2020 10:34 EST General Info Arrived From : Home Mode of Arrival on Unit : Ambulatory Patient Arrival Date/Time : 12/03/2020 10:00 EST Legal Guardian : Unaccompanied Legal Guardian : No 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 Emergency Contact #2 Phone Number : . Emergency Contact #2 Relationship : . Information Obtained From : Patient Primary Language : Angolan Preferred Communication Mode : Verbal Communication Barrier : None Amr Physician Needed : No Mickie Lemus Rn - 12/03/2020 10:34 EST John Scale John Sensory Perception : No impairment John Moisture : Occasionally moist John Activity : Walks occasionally John Mobility : Slightly limited John Nutrition : Adequate John Friction and Shear : No apparent problem John Score : 19 Mickie Lemus Rn - 12/03/2020 10:34 EST Sleep Apnea Risk Assmt Hx of Obstructive Sleep Apnea Diagnosis : No Snore Loudly : Yes Tired, Fatigued, or Sleepy During Day : No Observed Stopping Breathing During Sleep : Yes Have/Are Being Treated for Hypertension : Yes BMI Greater Than 35 kg/m2 : Yes Age over 50 Years Old : No Neck Circumference Greater Than 40 cm : Yes Gender Male : No STOP-BANG Sleep Apnea Risk Level Score : 5 Mickie Lemus Rn - 12/03/2020 10:34 EST documented in this encounter Plan of Treatment Not on file documented as of this encounter Visit Diagnoses Not on filedocumented in this encounter
--- OUTSIDE RECORDS SUMMARY | 2025-04-28 13:49 | XMS_ITS | Referral Summary ---
Author Organization [facility] Address [address] [place] [address] Care Team Providers Care Vp Care Management Name Role Phone Unavailable Primary Care Provider Unavailabl e Allergies No known active allergies Medications diazePAM (VALIUM) 2 MG tablet Take 1 tablet (2 mg total) by mouth nightly. 1 Active gabapentin (NEURONTIN) 800 MG tablet Take 1 tablet (800 mg total) by mouth 4 (four) times daily. 1 Active insulin regular CONCENTRATE (HumuLIN R U-500, Conc, Kwikpen) 500 unit/mL (3 mL) InPn Inject 0.32 mLs (160 Units total) subcutaneously 3 (three) times daily before meals. 2 Active pantoprazole (PROTONIX) 40 MG tablet Take 1 tablet (40 mg total) by mouth daily. 1 Active rivaroxaban (XARELTO) 20 mg tabletIndicati ons:deep vein thrombosis prevention Take 1 tablet (20 mg total) by mouth daily with dinner. Active escitalopram oxalate (LEXAPRO) 20 MG tabletIndicati ons:generalize d anxiety disorder Take 1 tablet (20 mg total) by mouth daily. Active semaglutide (OZEMPIC SUBQ) Inject subcutaneously. Active Active Problems Problem Noted Date Diagnosed Date DVT (deep venous thrombosis) 02/10/2023 Acute pulmonary embolism without acute cor pulmo nale 02/10/2023 Deficiency, factor, II 02/10/2023 Gastroesophageal reflux disease 10/03/2022 Hypertension 11/03/2021 Diabetes mellitus type 2, uncontrolled 9 Immunizations Name Administration Dates Next Due Covid-19 Vaccine MRNA(PF,Pre mixed)12YR+ ([employer])([id number]) 01/05/2022,12/15/2021 Influenza Four-qiv Pf 12/15/2021,09/10/2020,08/22 Social History Tobacco Use Types Packs/Day Years Used Date Smoking Tobacco: Every Day Cigarettes 0.5 30.4 Started: 1992 Smokeless Tobacco: Never Tobacco Cessation:Ready to Q uit: No Alcohol Use Standard Drinks/Week Comments Never 0 (1 standard drink = 0.6 oz pur e alcohol) Humiliation, Afraid, Rape, and Kick questionnair e Answer Date Recorded Within the last year, have y ou been afraid of your partner or ex-partner? No 10/03/2022 Within the last year, have y ou been humiliated or emotionally abused in other ways by your partner or ex-partner? No Within the last year, have y ou been kicked, hit, slapped, or otherwise physically hurt by your partner or ex-partner? No 10/03/2022 Within the last year, have y ou been raped or forced to have any kind of sexual activity by your partner or ex-partner? No 10/03/2022 Social Connection and Isolation Panel [NHANES] A nswer Date Recorded In a typical week, how many times do you talk on the phone with family, friends, or neighbors? Once a week 10/03/2022 How often do you get together with friends or re latives? Once a week 10/03/2022 Attends Gnosticism Services Not on file 10/03 Active Member of Clubs or Organizations Not on f ile 10/03/2022 Attends Club or Organization Meetings Not on herson e 10/03/2022 Are you , , di vorced, , never , or living with a partner? Never 10/03/2022 AUDIT-C Answer Date Recorded Q1: How often do you have a drink containing alc ohol? Never 10/03/2022 Average Number of Drinks Not on file 022 Q3: How often do you have si x or more drinks on one occasion? Never 10/03/2022 Overall Financial Resource Strain (CARDIA) Answe r Date Recorded How hard is it for you to pa y for the very basics like food, housing, medical care, and heating? Somewhat hard 10/03/2022 PHQ-2 Answer Date Recorded Patient Health Questionnaire-2 Score 2 10/03/2022 [facility] - Occupational Stress Questionnaire Answer Date Recorded Do you feel stress - tense, restless, nervous, or anxious, or unable to sleep at night because your mind is troubled all the time - these days? Rather much 10/03/2022 Exercise Vital Sign Answer Date Recorde d On average, how many days pe r week do you engage in moderate to strenuous exercise (like a brisk walk)? 1 day 10/03/2022 On average, how many minutes do you engage in exercise at this level? 0 min 10/03/2022 Hunger Vital Sign Answer Date Recorded Within the past 12 months, y ou worried that your food would run out before you got the money to buy more. Never true 10/03/20 22 Within the past 12 months, t he food you bought just didn't last and you didn't have money to get more. Never true 10/03/2022 PRAPARE - Transportation Answer Date Re corded In the past 12 months, has l ack of transportation kept you from medical appointments or from getting medications? No 09/20 In the past 12 months, has l ack of transportation kept you from meetings, work, or from getting things needed for daily living? No 10/03/2022 Housing Stability Vital Sign Answer Clif e Recorded In the last 12 months, was t here a time when you were not able to pay the mortgage or rent on time? No 10/03/2022 In the last 12 months, how many places have you lived? 1 10/03/2022 In the last 12 months, was t here a time when you did not have a steady place to sleep or slept in a jail (including now)? No 10/03/2022 Interpersonal Safety Answer Date Record ed Family or friends hurt you Not on file 12/08 Family or friends insult you Not on file Family or friends threaten you Not on file 0 12/08/2023 Family or friends scream or curse at you Not on file 12/08/2023 Housing Stability Answer Date Recorded Living situation today Not on file Living situation problems Not on file 2023 Family and Community Support Answer Clif e Recorded Help with Day to Day Activities Not on file 12/08/2023 Feeling Lonely or Isolated Not on file 12/08 Educational Attainment Answer Date Raji rded Speak language other than Czech at home Not on file 12/08/2023 Want help with school or training Not on file 12/08/2023 Depression Answer Date Recorded PHQ-2 Risk Not on file 12/08/2023 Disabilities Answer Date Recorded Difficulty concentrating Not on file 024 Difficulty doing errands alone Not on file 0 12/08/2023 Substance Use Answer Date Recorded Used prescription meds for non-medical reasons N ot on file 12/08/2023 Used illegal drugs past 12 months Not on file 12/08/2023 Education Answer Date Recorded What is the highest level of school you have completed or the highest degree you have received? 12th grade 10/03/2022 Comments Unknown Sex and Gender Information Value Date Recorded Sex Assigned at Not on file Legal Sex Female 6:11 PM CDT Gender Identity Not on file Sexual Orientation Not on file Occupation Industry Job Start Date Job End Date unemployed Not on file Not on file Not on file Last Filed Vital Signs Vital Sign Reading Time Taken Comments Blood Pressure 134/58 05/25/2023 8:34 AM EDT Pulse 82 05/25/2023 8:34 AM EDT Temperature 37 C (98.6 F) 05/25/2023 8:34 AM EDT Respiratory Rate 18 05/25/2023 8:34 AM EDT Oxygen Saturation 93% 05/25/2023 8:34 AM EDT RA Inhaled Oxygen Concentration - - Weight 120.6 kg (265 lb 14.4 oz) 05/25/2023 8:34 AM EDT Height 157.5 cm (5' 2.01 ) 10/03/2022 9:58 AM ES T Body Mass Index 48.62 10/03/2022 9:58 AM EST Plan of Treatment Not on file Insurance [facility] DUAL COMPLETE MCR ADV
--- OUTSIDE RECORDS SUMMARY | 2025-04-28 13:49 | XMS_ITS | Encounter Summary ---
Author Organization Healthcare Address [address] [place] [address] Care Team Providers Care Clock And Watch Hands Painter Name Role Phone Alessandra Garza Primary Care Provider [phone] Encounter Details Date Type Department Care Team (Late st Contact Info) Description 01/30/2025 Telephone [facility] Endocrinology [address] [place] [address] Bernadette Ledesma, RAILROAD PASSENGER AGENT [address] [facility] [address] [place] [address] Social History Tobacco Use Types [...] encounter Miscellaneous Notes * Telephone Encounter - PalCarmel lobrayden Be - 01/30/2025 3:19 PM EDT Returned pts call. She states not sure if her mounjaro is making her sick. Pt states is just now started and she has been on 15mg for past two months without any side effects. Pt did say she has another UTI and is going to the doctor tomorrow for treatment. Pt states that might be why she is feeling nauseated. Pt also said she ran out of insulin this pas month. Looked at pt's arline data and she does have some recent highs and lows. Pt educated on taking insulin correctly. Asked pt to call back with arline data after getting her UTI treated to see what impact this had on her bs. Pt currently is taking 50 u of premix BID * Telephone Encounter - JT RODRIGUEZ - 01/30/2025 12:57 PM EDT Pt is wanting to speak to someone regarding Mounjaro. documented in this encounter Plan of Treatment Upcoming Encounters Date Type Department Care Team (Late st Contact Info) Description 07/24/2025 2:20 PM EDT Office Visit [facility] Endocrinology [address] [place] [id number] Bernadette Ledesma, RAILROAD PASSENGER AGENT [address] [facility] [address] [place] [address] documented as of this encounter Visit Diagnoses Not on filedocumented in this encounter Additional Health Concerns Assessment Noted Time A fall risk assessment has been complete d for the patient 05/20/2024 9:03 AM EDT A Body Mass Index follow-up plan has been documented for the patient 12/04/2024 4:19 PM EST documented as of this encounter Care Teams Clock And Watch Hands Painter Relationship Specialty Start Date End Date Alessandra Garza DO [address] [place], [place] [address] [place] [address] PCP - General 04/02/21 documented as of this encounter
--- OUTSIDE RECORDS SUMMARY | 2025-04-28 13:49 | XMS_ITS | Encounter Summary ---
Author Organization Healthcare Address [address] [place] [address] Care Team Providers Care Permit Review Assistant Name Role Phone Alessandra Garza DO Primary Care Provider [phone] Encounter Details Date Type Department Care Team (Latest Contact Info) Description 04/03/2025 Travel Social History Tobacco Use Types Packs/Day Years [...] on file documented as of this encounter Plan of Treatment Upcoming Encounters Date Type Department Care Team (Late st Contact Info) Description 07/24/2025 2:20 PM EDT Office Visit [facility] Endocrinology [address] [place] [id number] Bernadette Ledesma, CAR WRECKER [address] [place] [address] documented as of this encounter Visit Diagnoses Not on filedocumented in this encounter Additional Health Concerns Assessment Noted Time A fall risk assessment has been complete d for the patient 05/20/2024 9:03 AM EDT A Body Mass Index follow-up plan has been documented for the patient 04/03/2025 1:52 PM EDT documented as of this encounter Care Teams Permit Review Assistant Relationship Specialty Start Date End Date Alessandra Garza DO [address] [place] [address] [address] [place], [place] [id number] PCP - General 04/02/21 documented as of this encounter
--- OUTSIDE RECORDS SUMMARY | 2025-04-28 13:49 | XMS_ITS | Clinical Summary ---
Author Organization Healthcare Address [address] [place] [address] Care Team Providers Care Hydraulic Plumber Helper Name Role Phone Alessandra Garza Primary Care Provider [phone] Allergies No known active allergies Medications atorvastatin (Lipitor) 80 MG tablet Take 1 tablet (80 mg) by mouth 1 (one) time each day. Active diazePAM (Valium) 2 MG tablet Take 1 tablet (2 mg) by mouth 1 (one) time each day. Active doxepin (SINEquan) 75 MG capsule Active ergocalciferol 1.25 MG (44704 UT) capsule Active Flaxseed, Linseed, (Flax Seed Oil) 1000 MG capsule Active gabapentin (Neurontin) 800 MG tablet Take 1 tablet (800 mg) by mouth 4 (four) times a day. Active pantoprazole (Protonix) 40 MG EC tablet Take 1 tablet (40 mg) by mouth 1 (one) time each day before breakfast. Active potassium chloride CR (Klor-Con M20) 20 MEQ ER tablet Active promethazine (Phenergan) 25 MG tablet 1 tablet (25 mg) every 6 (six) hours if needed. Active varenicline (Chantix) 1 MG tablet Active B-D ULTRAFINE III SHORT PEN 31G X 8 MM misc USE 3 TIMES DAILY 100 each 3 Active Continuous Blood Gluc Bottled Beverage Inspector (FreeStyle Jonathon 2 Caldwell) deviceIndication s:Type 2 diabetes mellitus with other specified complication, with long-term current use of insulin ([facility]) Use to test blood glucose DX E11.9 1 each 023 Active escitalopram (Lexapro) 20 MG tablet Take 1 tablet (20 mg) by mouth 1 (one) time each day. Active aspirin 81 MG EC tablet Take 1 tablet (81 mg) by mouth 1 (one) time each day. Active Continuous Blood Gluc Sensor (FreeStyle Jonathon 2 Sensor) miscIndications: Type 2 diabetes mellitus with other specified complication, with long-term current use of insulin ([facility]) Use as instructed change sensor every 14 days DX E11.9 6 each 3 023 Active Blood Glucose Monitoring Suppl w/Device kit Use 3 times per day DX CODE E 11.9 1 kit 024 Active Vitamin D3 125 MCG (5000 UT) capsule Take 1 capsule (5,000 Units) by mouth 1 (one) time each day. 024 Active dexamethasone 0.5 MG/5ML solution TAKE 10 MILLILITERS BY ORAL ROUTE 4 TIMES PER DAY. RINSE AND HOLD FOR 2 MINUTES THEN SPIT. 024 Active lidocaine (Xylocaine) 2 % solution APPLY 2 ML TO AFFECTED AREA EVERY 2 HOURS NEEDED FOR PAIN. 024 Active tolterodine LA (Detrol LA) 4 MG 24 hr capsule Take 1 capsule (4 mg) by mouth 1 (one) time each day. 023 Active losartan (Cozaar) 100 MG tablet Take 1 tablet (100 mg) by mouth 1 (one) time each day. 024 Active oxybutynin XL (Ditropan-XL) 10 MG 24 hr tablet Take 1 tablet (10 mg) by mouth 1 (one) time each day. 023 Active buPROPion XL (Wellbutrin XL) 150 MG 24 hr tablet Take 1 tablet (150 mg) by mouth 1 (one) time each day. 024 Active famotidine (Pepcid) 40 MG tablet Take 1 tablet (40 mg) by mouth 1 (one) time each day. 024 Active albuterol (Ventolin HFA) 108 (90 Base) MCG/ACT inhaler INHALE 1 OR 2 PUFFS EVERY 4 TO 6 HOURS NEEDED FOR SHORTNESS OF BREATH Active sulfamethoxazole -trimethoprim (Bactrim DS) 800-160 MG tablet Take 1 tablet by mouth 2 (two) times a day. Active nitrofurantoin, macrocrystal-mon ohydrate, (Macrobid) 100 MG capsule Take by mouth 2 (two) times a day. Active Accu-Chek Guide Test test stripIndications :Type 2 diabetes mellitus with other specified complication, with long-term current use of insulin ([facility]) USE TO TEST BLOOD SUGAR 3 TIMES A DAY 100 strip 5 Active Accu-Chek Softclix Lancets lancets USE 3/DAY 100 each Active tirzepatide (Mounjaro) 15 MG/0.5ML solution auto-injector solution pen-injectorIndi cations:Type 2 Diabetes Mellitus Inject 0.5 mL under the skin 1 time per week. 2 mL 2025 Active metFORMIN XR (Glucophage-XR) 500 MG 24 hr tablet Take 2 tablets by mouth 1 time each day with dinner. Do not crush, chew, or split. 90 tablet 3 2025 Active insulin regular (HumuLIN R U-500 KWIKPEN) 500 UNIT/ML CONCENTRATED injection penIndications:T ype 2 diabetes mellitus with other specified complication, with long-term current use of insulin ([facility]),Type 2 diabetes mellitus with hyperglycemia ([facility]) Inject 75 units before breakfast and 75 units before supper, titrate by 5 units every 4 days as directed MDD 250 75 mL Active tirzepatide (Mounjaro) 15 MG/0.5ML solution auto-injector solution pen-injectorIndi cations:Type 2 Diabetes Mellitus Inject 0.5 mL (15 mg) under the skin 1 (one) time per week. 2 mL 2024 Discontinued(R eorder) metFORMIN XR (Glucophage-XR) 500 MG 24 hr tablet TAKE 1 TABLET BY MOUTH 1 TIME EACH DAY WITH DINNER. DO NOT CRUSH, CHEW, OR SPLIT 90 tablet 1 025 05/15/ 2025 Discontinued(R eorder) insulin regular (HumuLIN R U-500 KWIKPEN) 500 UNIT/ML CONCENTRATED injection penIndications:T ype 2 diabetes mellitus with other specified complication, with long-term current use of insulin (CMS/HCC),Type 2 diabetes mellitus with hyperglycemia (CMS/HCC) Inject 60 units before breakfast and 60 units before supper, titrate as directed MDD 150 12 mL 5 025 2024 Discontinued(R eorder) insulin regular (HumuLIN R U-500 KWIKPEN) 500 UNIT/ML CONCENTRATED injection penIndications:T ype 2 diabetes mellitus with other specified complication, with long-term current use of insulin (CMS/HCC),Type 2 diabetes mellitus with hyperglycemia (CMS/HCC) Inject 60 units before breakfast and 60 units before supper, titrate as directed MDD 150 36 mL 5 025 2024 Discontinued Active Problems Problem Noted Date Diagnosed Date Hyperlipidemia 03/16/2022 Type 2 diabetes mellitus, wi th long-term current use of insulin 11/03/2021 Neuropathy - (NOS) 11/03/2021 Overview (08/22/2022): Regulatory Update August 2022 Class 3 severe obesity due t o excess calories with body mass index (BMI) of 50.0 to 59.9 in adult 11/03/2021 Hypertension 11/03/2021 Diabetes mellitus type 2, uncontrolled 9 Encounters Date Type Department Care Team Description 04/04/2025 Telephone [facility] Endocrinology [address] [place] [address] Megan Pro RN 04/03/2025 1:20 PM EDT Office Visit [facility] Endocrinology [address] [place] [address] Bernadette Ledesma, SENA Type 2 diabetes mellitus with hyperglycemia, with long-term current use of insulin (CMS/HCC) (Primary Dx); Type 2 diabetes mellitus with other specified complication, with long-term current use of insulin (CMS/HCC); Type 2 diabetes mellitus with hyperglycemia (CMS/HCC) 04/03/2025 Travel 02/10/2025 Telephone [facility] Endocrinology [address] [place] [address] Bernadette Ledesma APRN 01/30/2025 Telephone [facility] Endocrinology [address] [place] [address] Bernadette Ledesma, CAR PILOT from Last 3 Months Immunizations Immunization Administration Dates Next Due Influenza, injectable, MDCK, preservative free, quadrivalent 10/23/2016 Influenza, injectable, quadrivalent 09/21/2015 Influenza, injectable, quadr ivalent, preservative free 12/15/2021,09/10/2020,09/19/2019 TD (adult), 2 Lf tetanus tox oid, preservative free, adsorbed 01/22/1997 Family History Medical History Relation Name Comments Diabetes Brother 1 Hypertension Brother 2 Heart attack Brother 3 Obesity Brother 4 Hyperlipidemia Brother 5 Diabetes Cousin Other cancer Other Relation Name Status Comments Brother 1 Brother 2 Brother 3 Brother 4 Brother 5 Cousin Other Social History Tobacco Use Types Packs/Day Years Used Date Smoking Tobacco: Former Cigarettes 0.5 35.4 S tarted: 1989 Smokeless Tobacco: Never Tobacco Cessation:Counseling Given: Not Answered Comments:Quit 01/10 Alcohol Use Standard Drinks/Week Comments [...] on file Sexual Orientation Not on file Last Filed Vital Signs Vital Sign Reading Time Taken Comments Blood Pressure 119/74 04/03/2025 1:16 PM EDT Pulse 64 04/03/2025 1:16 PM EDT Temperature 36.7 C (98 F) 05/20/2024 8:59 AM EDT Respiratory Rate 16 05/20/2024 8:59 AM EDT Oxygen Saturation 93% 05/20/2024 8:59 AM EDT Inhaled Oxygen Concentration - - Weight 118 kg (260 lb 2.3 oz) 04/03/2025 1:16 PM EDT Height 157.5 cm (5' 2 ) 04/03/2025 1:16 PM EDT Body Mass Index 47.58 04/03/2025 1:16 PM EDT Plan of Treatment Upcoming Encounters Date Type Department Care Team (Late st Contact Info) Description 07/24/2025 2:20 PM EDT Office Visit [facility] Endocrinology [address] [place] [address] Bernadette Ledesma, CAR PILOT [address] [place] [address] Health Maintenance Due Date Last Done Comments [facility]-HIV Screening 1972 [facility]-Medicare Annual Wellness (AWV) 1972 [facility]-/Child/Adol SDOH Screenings 1972 Diabetes: Dental Exam 1982 [facility]- SDOH Screenings 1990 [facility]-Adult SDOH Screenings 1990 [facility]-Hepatitis B Vaccines (1 of 3 - 19+ 3-dose series) 1991 [facility]-Pneumococcal Vaccine: 50+ Years (1 of 2 - PCV) 1991 [facility]-Pap Smear 1993 [facility]-DTaP,Tdap,and Td Vaccines (1 - Tdap) 01/23/1997 01/22/1997 [facility]-Cervical Cancer Screening 2002 [facility]-HPV/Cotest 2002 CT Colonography 2017 Colonoscopy 2017 FIT-DNA 2017 FIT 2017 FOBT 2017 Sigmoidoscopy 2017 [facility]-Colorectal Cancer Screening 2017 [facility]-Breast Cancer Screening 2022 [facility]-Zoster Vaccines (1 of 2) 2022 [id number] Vaccine (3 - season) 2024 01/05/2022, 12/15/2021 [facility]-Depression Screening 05/20/2025 05/20/2024 [facility]-Influenza Vaccine (Season Ended) 2025 12/15/2021, 09/10/2020, 09/19/2019, Additional history exists [facility]-Diabetes: Hemoglobin A1C 10/01/2025, 12/04/2024, 07/11/2024, Additional history exists [facility]-Hepatitis C Screening Completed 05/02/2020 [facility]-Obesity Intervention Completed 025, 12/04/2024, 07/11/2024, Additional history exists HPV Vaccines Aged Out No longer eligi ble based on patient's age to complete this topic [facility]-HIB Vaccines Aged Out No longer e ligible based on patient's age to complete this topic [facility]-Hepatitis A Vaccines Aged Out No longer eligible based on patient's age to complete this topic [facility]-IPV Vaccines Aged Out No longer e ligible based on patient's age to complete this topic [facility]-Rotavirus Vaccines Aged Out No lo nger eligible based on patient's age to complete this topic Procedures Procedure Name Priority Date/Time Associated Diagnosis Comments POCT GLYCOSYLATED HEMOGLOBIN (HGB A1C) Routine 04/03/2025 5:09 PM EDT Type 2 diabetes mellitus with hyperglycemia, with long-term current use of insulin (CMS/HCC) HEPATITIS C ANTIBODY - ED W/REFLEX TO HCV QUANT PCR Routine 05/02/2020 9:33 PM EDT from Last 3 Months or Most Recently Relevant to Health Maintenance Results * POCT glycosylated hemoglobin (Hb A1C) (04/03/2025 5:09 PM EDT) Pathologist [facility] POCT Hemoglobin A1C 6.9 <5.7% Non-Diabet ic % [facility] Kit Lot Number na [facility] Kit Expiration Date na [facility] Blood Venous blood specimen / Unknown 04/03/2025 5:09 PM EDT us Bernadette Ledesma CAR PILOT POINT OF CARE TEST ENTER/MOHIT T ORDERABLES Final Result [facility] [address] [place] [address] * [place] Hepatitis C Antibody (05/02/2020 9:33 PM EDT) [place] Hepatitis C Ab NEGATIVE Reference Range: Negative SUNQUEST 05/02/2020 9:33 PM EDT 05/02/2020 9:54 PM EDT us Kwesi Walker MD LAB BLOOD ORDERABLES Final Resu lt SUNQUEST from Last 3 Months or Most Recently Relevant to Health Maintenance Insurance [facility] MEDICARE Care Teams Hydraulic Plumber Helper Relationship Specialty Start Date End Date Alessandra Garza DO [address] [place] [address] [place] [address] PCP - General 04/02/21
--- OUTSIDE RECORDS SUMMARY | 2025-04-28 13:49 | XMS_ITS | Encounter Summary ---
Author Organization [facility] In iatives Address [address] [address] Care Team Providers Care Laborer [place] Name Role Phone Unavailable Primary Care Provider Unavailabl e Encounter Details Date Type Department Care Team ([facility] st Contact Info) Description 08/05/2021 Transcribed Document [facility] Family Medicine Formerly [facility] [place] [address] ProviderAl MD [address] [address] [id number] Social History Tobacco Use Types Packs/Day Years Used Date Smoking Tobacco: Never Assessed Comments Unknown Sex and Gender Information Value Date Recorded Sex Assigned at Not on file Legal Sex Female 6:11 PM CDT Gender Identity Not on file Sexual Orientation Not on file documented as of this encounter Miscellaneous Notes * Cerner Conversion Note - Historical ProviderMD - 08/05/2021 9:00 AM CDT Pre Procedure Adult Entered On: 08/05/2021 9:12 EDT Performed On: 08/05/2021 9:00 EDT by Sheila Hughes Rn Height and Weight, Clinical Dosing Height Source : Stated Height Entry Format : Ranger Height, Feet : 5 ft(Converted to: 152 cm, 60 Inch) Height, Inches : 2 Inch(Converted to: 0 ft 2 Inch, 5.08 cm) Clinical Height : 157.48 cm Weight Source : Standing scale Weight Entry Format : Ranger Clinical Dosing Weight : 134.55 kg Weight, Pounds : 296 lb Body Surface Area (BSA) : 2.26 m2 Body Mass Index : 54.3 kg/m2 (>HHI) [place] Body Weight : 50 kg Sheila Hughes Rn - 08/05/2021 9:00 EDT Health Histories Smoking Status : 10 or more cigarettes (1/2 pack or more)/day in last 30 days Smokeless Tobacco Status : Never Desires Tobacco Cessation Medication : No Reason for No Tobacco Cessation Medication : Refuses FDA approved medications Sheila Hughes Rn - 08/05/2021 9:00 EDT Social History (As Of: 08/05/2021 09:12:30 EDT) Tobacco: Smoking Status Current every day smoker. Five or more cigarettes per day Smoking Frequency Within Last 30 Days. Use in Last 12 Months: Cigarettes. Years of Use: 20. Packs/Tins Daily: 1. (Last Updated: 04/02/2018 10:35:35 EDT by RABIA CRAIN RN) 5-9 cigarettes (between 1/4 to 1/2 pack)/day in last 30 days Smoking Status. Never Smokeless Tobacco Status. (Last Updated: 12/03/2020 10:34:14 EST by Mickie Lemus Rn) Alcohol: Alcohol Use History No. Use in Last 12 Months: No. (Last Updated: 12/03/2020 10:34:21 EST by Mickie Lemus Rn) Substance Abuse: Drug Use Hx: No. Use in Last 12 Months: No. (Last Updated: 12/03/2020 10:34:27 EST by Mickie Lemus Rn) Infectious Disease History Does patient have symptoms of COVID-19? : No Has the Patient Been Tested for COVID-19 in the last 14 days? : Yes, Patient stated results Negative Where and When was COVID19 testing completed? : 08/03/2021 Does the Patient state known exposure to a COVID-19 positive case in the last 14 days? : No Patient Vaccinated for COVID-19 : Not vaccinated Does Patient want a COVID-19 Vaccine? : No Sheila Hughes Rn - 08/05/2021 9:00 EDT Infectious Disease Risk Screening Grid Cough < 2 wks of unknown origin : NO Cough > 2 weeks : NO Blood in Sputum : NO Fever or self-reported Fever : NO Rash of unknown origin : NO Headache : NO Stiff neck : NO Night Sweats : NO Unexplained Weight Loss : NO Diarrhea (3 episode per day) : NO Sheila Hughes Rn - 08/05/2021 9:00 EDT Physical contact outside [place] in the last 30 days : No Hospitalized in Foreign Country : No Infectious Disease History : Chicken pox/Shingles, Influenza, Measles INF Disease TB Screening Calc : 0 INF Disease Recent Travel Calc : 0 Sheila Hughes Rn - 08/05/2021 9:00 EDT COVID19 PreProcedure Screening Is this an Emergent or Add on Procedure? : No Date PreProcedure COVID-19 test known? : Yes Date of PreProcedure COVID-19 : 08/03/2021 EDT Has patient been isolated since the test : Yes Exposed to COVID19 symptoms since test? : No Sheila Hughes Rn - 08/05/2021 9:00 EDT Anesthesia/Transfusion History Family History of Anesthesia Reaction : No prior transfusion(s) Blood Transfusion Acceptable to Patient : Yes Transfusion History : Prior anesthesia reaction Type of Anesthesia Reaction : Excessive nausea/vomiting Family History of Anesthesia Reaction : None Sheila Hughes Rn - 08/05/2021 9:00 EDT Functional Assessment Living Situation : Home Patient Lives With : Dependent Child/Children, Significant other(s) Mobility Assistance Prior to Admission : Independent [place] Hx Falls Immediate/Within 3 Months : No Current Home Treatments : None Sheila Hughes Rn - 08/05/2021 9:00 EDT [place] Suicide Severity Rating Scale (C-SSRS) CSSRS Past Month Wish to be : No CSSRS Past Month Suicidal Thoughts : No CSSRS Lifetime Suicide Behavior : No Suicide Severity Rating Score : 0 Suicide Severity Rating : No Additional Care Required at this time Thoughts of Harming/Killing Others : No Sheila Hughes Rn - 08/05/2021 9:00 EDT Psychosocial History Do You Have a History of the Following? : Patient denies history Currently in Unsafe Situation : No Sheila Hughes Rn - 08/05/2021 9:00 EDT Advance Directive Patient has Advance Directive *Q : No, patient refuses Advance Directive information Sheila Hughes Rn - 08/05/2021 9:00 EDT Spiritual/Cultural Needs Any Spiritual/Cultural Needs or Requests : No Sheila Hughes Rn - 08/05/2021 9:00 EDT Teaching/Learning Assessment Barriers To Learning : None evident Individuals Taught : Patient Readiness to Learn : Cooperative Baseline Knowledge of Topic : Good Learning Style Preferences Patient : Printed materials, Verbal explanation Learning Style Preferences Family : Verbal explanation Sheila Hughes Rn - 08/05/2021 9:00 EDT Education Topics, Periop Preadmission Perioperative Education Grid Arrival Time/Place : Verbalizes understanding CAUTI : Verbalizes understanding Central Lines : Verbalizes understanding CHG Preoperative Bathing/Cloths : Verbalizes understanding Falls : Verbalizes understanding Incentive Spirometry : Verbalizes understanding Infection Control : Verbalizes understanding IV's : Verbalizes understanding NPO Status/Directions : Verbalizes understanding Pain Management : Verbalizes understanding Postoperative Care Preparations : Verbalizes understanding Preprocedure Preparations : Verbalizes understanding Preprocedure Tests/Labs : Verbalizes understanding Remove Body Piercings : Verbalizes understanding Responsible Adult : Verbalizes understanding SNE's : Verbalizes understanding Take/Hold Medications Pre-Procedure : Verbalizes understanding Other : Verbalizes understanding Sheila Hughes Rn - 08/05/2021 9:00 EDT General Info Arrived From : Home Mode of Arrival on Unit : Ambulatory Patient Arrival Date/Time : 08/05/2021 7:30 EDT Legal Guardian : No Support Person/Patient Test Center Administrator : Yes Want Family/Rep/Phys Notified of Admit : No Emergency Contact #1 : Gertrude Mcguire Emergency Contact #1 Emergency Contact #1 Relationship : sister Emergency Contact #2 : . Emergency Contact #2 Phone Number : . Emergency Contact #2 Relationship : . Information Obtained From : Patient Primary Language : Japanese Preferred Communication Mode : Verbal Communication Barrier : None Cancer Researcher Needed : Sheila Agosto Rn - 08/05/2021 9:00 EDT Vital Measurements Temperature Source : Oral Temperature Mode : Fahrenheit Temperature, Fahrenheit : 98.8 Deg F Clinical Temperature, C : 37.1 Deg C Peripheral Pulse Rate : 110 bpm (HI) Respiratory Rate : 16 Breaths/Min Systolic Blood Pressure : 207 mmHg (HI) Diastolic Blood Pressure : 75 mmHg Oxygen Saturation : 93 % (LOW) Oxygen Therapy Mode : Room air Sheila Hughes Rn - 08/05/2021 9:00 EDT Sleep Apnea Risk Assmt Hx of Obstructive Sleep Apnea Diagnosis : No Snore Loudly : Yes Tired, Fatigued, or Sleepy During Day : No Observed Stopping Breathing During Sleep : Yes Have/Are Being Treated for Hypertension : Yes BMI Greater Than 35 kg/m2 : Yes Age over 50 Years Old : No Neck Circumference Greater Than 40 cm : No Gender Male : No STOP-BANG Sleep Apnea Risk Level Score : 4 Sheila Hughes Rn - 08/05/2021 9:00 EDT John Scale John Sensory Perception : No impairment John Moisture : Rarely moist John Activity : Walks frequently John Mobility : No limitation John Nutrition : Excellent John Friction and Shear : No apparent problem John Score : 23 Sheila Hughes Rn - 08/05/2021 9:00 EDT Pain Assessment Pain Assessment : Initial assessment Pain Scale Used : 0-10 Scale Pain Radiation : No Sheila Hughes Rn - 08/05/2021 9:00 EDT Fall Risk Scales ABCs Fall Injury Risk Identification : None Injury Moderate to High Risk Interventions : Transport methods appropriate to patient [place] Hx Falls Immediate/Within 3 Months : No [place] Secondary Diagnosis : Yes [place] Use of Ambulatory Aid : None [place] IV Therapy or IV Access : Yes [place] Gait/Transferring : Normal, bedrest, immobile [place] Mental Status : Oriented to own ability [place] Fall Risk Score : 35 [place] Fall Scale Risk Level : 25-45 Medium Risk [place] Fall Interventions : Adequate lighting, Assistive devices within reach, Bed in low position, Call device within reach, Fall prevention handout/education per facility policy, Frequent orientation to call device, Frequent orientation to surroundings, Hourly comfort/safety rounds, Non-slip footwear, Personal items within reach, Reinforced to call for assistance before getting out of bed, Room free of clutter/spills, Upper side-rails up, Wheels locked, Wires/Cords secured Fall Moderate to High Risk Interventions : Transport methods appropriate to patient Sheila Hughes Rn - 08/05/2021 9:00 EDT Fall Risk Education Grid Alarms : Verbalizes understanding Assistive Equipment Use : Verbalizes understanding Bed Height/Stabilization : Verbalizes understanding Call light use : Verbalizes understanding Door Open : Verbalizes understanding Environmental Management : Verbalizes understanding Eyeglasses Use : Verbalizes understanding Fall Community Resources : Verbalizes understanding Fall Contract/Letter : Verbalizes understanding Fall Prevention in the Home : Verbalizes understanding Fall Prevention Protocol : Verbalizes understanding Hearing Aid Use : Verbalizes understanding Home Risk Assessment : Verbalizes understanding Need Constant Observation : Verbalizes understanding Night Light Use : Verbalizes understanding Nonskid Footwear Use : Verbalizes understanding Notification of Staff When Leaving : Verbalizes understanding Orthostatic Hypotension Precautions : Verbalizes understanding Personal Article Availability : Verbalizes understanding Prevention Responsibility Family : Verbalizes understanding Prevention Responsibility Patient : Verbalizes understanding Risk Alert Methods : Verbalizes understanding Risk Factors : Verbalizes understanding Safety Aids : Verbalizes understanding Siderails use/risks : Verbalizes understanding Special Assistive Devices : Verbalizes understanding Staff Responsiveness : Verbalizes understanding Symptom Identification & Action Plan *Q : Verbalizes understanding Symptom Reporting : Verbalizes understanding Toileting Schedule : Verbalizes understanding Transfer/Mobility Techniques : Verbalizes understanding Urinal/Bedpan Availability : Verbalizes understanding Wait for Assistance : Verbalizes understanding Wheelchair Safety : Verbalizes understanding Sheila Hughes Rn - 08/05/2021 9:00 EDT Barriers to Learning : None evident Individuals Taught : Patient Readiness to Learn : Cooperative Teaching Method : Explanation Learning Style Preferences Patient : Printed materials, Verbal explanation Teaching Evaluation : Verbalizes understanding Fall Risk Scale Calc Temp : 0 Sheila Hughes Rn - 08/05/2021 9:00 EDT Education Topics, Day of Surgery DayofSurgery Education Grid Anesthesia/Sedation : Verbalizes understanding CAUTI : Verbalizes understanding Central Lines : Verbalizes understanding CHG Preoperative Bathing/Cloths : Verbalizes understanding Fall Risks : Verbalizes understanding Family Instructions : Verbalizes understanding Incentive Spirometry : Verbalizes understanding Infection Control : Verbalizes understanding Infection Risks : Verbalizes understanding IV's : Verbalizes understanding Medication Instructions : Verbalizes understanding Pain Management : Verbalizes understanding Plan of Care : Verbalizes understanding Respiratory Care : Verbalizes understanding Responsible Adult : Verbalizes understanding SNE's : Verbalizes understanding Tubes/Drains : Verbalizes understanding Other : Verbalizes understanding Sheila Hughes Rn - 08/05/2021 9:00 EDT Valuables and Belongings Valuables and Belongings : Clothing Clothing : Common streetwear Clothing Disposition : Bedside Sheila Hughes Rn - 08/05/2021 9:00 EDT Pain Scale Intensity : 0 Sheila Hughes Rn - 08/05/2021 9:00 EDT Image 4 - Images currently included in the form version of this document have not been included in the text rendition version of the form. [place] Coma [place] Best Motor Response : Obey commands Bailey Best Verbal Response : Oriented Bailey Eye Opening Response : Spontaneous Bailey Coma Score : 15 Sheila Hughes Rn - 08/05/2021 9:00 EDT Electronically signed by Venus [facility] Conversion Bandage Winding Machine Operator Cerner at 03/10/2023 6:00 PM CDT documented in this encounter Plan of Treatment Not on file documented as of this encounter Visit Diagnoses Not on filedocumented in this encounter
--- OUTSIDE RECORDS SUMMARY | 2025-04-28 13:49 | XMS_ITS | Encounter Summary ---
Author Organization [facility] In iatives Address [address] [place] [address] Care Team Providers Care Tool Filer Name Role Phone Unavailable Primary Care Provider Unavailabl e Encounter Details Date Type Department Care Team ([facility] st Contact Info) Description 12/03/2020 Transcribed Document [facility] [place] Family Medicine [address] [place] [id number] ProviderAl MD [address] [place] [id number] Social History Tobacco Use Types Packs/Day Years Used Date Smoking Tobacco: Never Assessed Comments Unknown Sex and Gender Information Value Date Recorded Sex Assigned at Not on file Legal Sex Female 6:11 PM CDT Gender Identity Not on file Sexual Orientation Not on file documented as of this encounter Miscellaneous Notes * Cerner Conversion Note - Al ProviderMD - 12/03/2020 10:00 AM MIME ARTIST Patient: NESSA HAWTHORNE Age: 50 Years Sex: Female : 1970 Chief Complaint Left Knee Pain Primary Care Provider PAUL TATE, -BERNICE History of Present Illness This patient is a pleasant 50 yo WF who presents with left knee pain. The pain has been going on for 2 years but has gotten progressively worse. She describes it as a sharp pain. It is now to the point that it is affecting her ADLs. She has tried NSAIDs and injections without relief of her pain. She has not fallen. She has used a cane as an assistive device. She was seen at Dr Cortes's office and evaluated and it was determined that she has severe DJD affecting the left knee. Pt was offered a Left Total Knee Arthroplasty and agreed to the procedure. Pt denies a h/o DVT/PE. No trouble with anesthesia in the past. No respiratory conditions including COPD/YESSY/asthma. Review of Systems Constitutional: Neg for fevers or chills. Eyes: Neg for blurry vision or change in vision. ENT: Neg for sore throat, ear pain, or dizziness. Cardiac: Neg for chest pain or dyspnea on exertion. Respiratory: Neg for shortness of breath. Gastrointestinal: Neg for nausea, vomiting, diarrhea, or constipation. Musculoskeletal: Pos for left knee pain. Neurologic: Neg for headaches or seizures. Psychiatric: Neg for anxiety and depression. Integumentary: Neg for rash. Vital Signs T: 36.7 ??C HR: 91(Peripheral) RR: 18 BP: 177/81 SpO2: 96% HT: 157.48 cm WT: 121.82 kg BMI: 49.1 Oxygen Settings (Last) Oxygen Therapy Mode: Room air (12/03/20 10:34:00) Physical Exam Constitutional: This is a pleasant 50 yo WF in no acute distress. HEENT: Normocephalic, atraumatic. PEERLA. Extraocular muscles intact. Conjunctiva pink without exudate. Oropharynx pink and moist. Neck supple. No JVD. Cardiac: SI, S2. RRR. No M/R/G. Respiratory: Lungs CTA bilaterally. No wheezes, rales, or rhonchi. Abdomen: Soft, nontender, nondistended. Active bowel sounds. No visible masses. Musculoskeletal: Bilateral LE without clubbing, cyanosis or edema. Integumentary: Skin is pink, warm and dry. No rashes. Neurologic: CN II-XII grossly intact. Psychiatric: Judgment and affect appropriate. Assessment/Plan 1. Preoperative Evaluation- Pt underwent preoperative laboratory workup and diagnostic studies. 2. Left Knee Pain secondary to DJD- Surgery cancelled secondary to elevated A1C. 3. Diabetes Mellitus- FSBS and SSI. 4. Hypertension- Continue Lisinopril. 5. GERD- Continue Pantoprazole. 6. Hyperlipidemia- Continue Atorvastatin. 7. Urinary Incontinence- Continue Oxybutynin. Problem List/Past Medical History Ongoing At risk for sleep apnea Cigarette smoker Diabetes mellitus type II Diabetic peripheral neuropathy Edema GERD - Gastro-esophageal reflux disease Hyperlipidemia Hypertension Incontinence Insomnia Morbid obesity Renal calculus Vitamin D deficiency Procedure/Surgical History breast bx, BTL, x 2, colonoscopy/ EGD. Home Medications (17) Active apple cider vinegar 450 mg, Oral, Daily atorvastatin 80 mg, Oral, Daily Chantix 1 mg oral tablet 1 mg = 1 Tab, Oral, BID doxepin 50 mg oral capsule 50 mg = 1 Cap, Oral, Once a day (at bedtime) gabapentin 800 mg oral tablet 800 mg = 1 Tab, Oral, QID HumuLIN R 10 Units, SubCutaneous, AC Lunch HumuLIN R 100 units/mL injectable solution 185 Units, SubCutaneous, BID hydrOXYzine hydrochloride 10 mg, Oral, Daily lisinopril 5 mg, Oral, Daily One-A-Day Women 1 Tab, Oral, Daily oxybutynin 5 mg/24 hours oral tablet, extended release 5 mg = 1 Tab, Oral, Daily pantoprazole 40 mg, Oral, Daily pioglitazone 45 mg, Oral, Daily promethazine 25 mg, PRN, Oral Vitamin B12 1,000 mcg, Oral, Daily Vitamin D2 50,000 Int Units, Oral, Daily Vitamin D3 5,000 Int Units, Oral, Daily Allergies No Known Allergies Social History Alcohol Alcohol Use History No. Use in Last 12 Months: No. Substance Abuse Drug Use Hx: No. Use in Last 12 Months: No. Tobacco 5-9 cigarettes (between 1/4 to 1/2 pack)/day in last 30 days Smoking Status. Never Smokeless Tobacco Status. Smoking Status Current every day smoker. Five or more cigarettes per day Smoking Frequency Within Last 30 Days. Use in Last 12 Months: Cigarettes. Years of Use: 20. Packs/Tins Daily: 1. Family History Pt mother is alive with a h/o COPD. Pt father in his 50s in a MVC. Diagnostic Results EKG- NSR, 80 CXR-NAD Lab Results Test Name Test Result Date/Time Sodium Level 139 mmol/L 12/03/2020 10:47 EST Potassium Level 4.0 mmol/L 12/03/2020 10:47 EST Chloride Level 106 mmol/L 12/03/2020 10:47 EST Carbon Dioxide Level 28 mmol/L 12/03/2020 10:47 EST Anion Gap 9 12/03/2020 10:47 EST Glucose Level 236 mg/dL (High) 12/03/2020 10:47 EST Blood Urea Nitrogen 13 mg/dL 12/03/2020 10:47 EST Creatinine Level 0.76 mg/dL 12/03/2020 10:47 EST eGFR >60 mL/min/1.73m2 12/03/2020 10:47 EST eGFR NonAfrican >60 mL/min/1.73m2 12/03/2020 10:47 EST Bun/Creatinine 17.1 12/03/2020 10:47 EST Calcium Level 9.3 mg/dL 12/03/2020 10:47 EST Protein Total 7.7 Gram/dL 12/03/2020 10:47 EST Albumin Level 3.6 Gram/dL 12/03/2020 10:47 EST Globulin 4.1 Gram/dL 12/03/2020 10:47 EST A/G Ratio 0.9 (Low) 12/03/2020 10:47 EST Bilirubin Total 0.4 mg/dL 12/03/2020 10:47 EST Alk Phos 74 Units/Liter 12/03/2020 10:47 EST AST 28 Units/Liter 12/03/2020 10:47 EST ALT 46 Units/Liter 12/03/2020 10:47 EST Hgb A1C 9.40 % (High) 12/03/2020 10:47 EST eAVG Glucose 223 mg/dL 12/03/2020 10:47 EST WBC 8.5 K/uL 12/03/2020 10:47 EST RBC 4.81 Million/uL 12/03/2020 10:47 EST Hgb 14.5 Gram/dL 12/03/2020 10:47 EST Hct 45.7 % (High) 12/03/2020 10:47 EST MCV 95.0 fL (High) 12/03/2020 10:47 EST MCH 30.1 pg 12/03/2020 10:47 EST MCHC 31.7 Gram/dL (Low) 12/03/2020 10:47 EST Platelet Count 287 K/uL 12/03/2020 10:47 EST MPV 9.6 fL 12/03/2020 10:47 EST RDW 15.2 % (High) 12/03/2020 10:47 EST Neut % 55.4 % 12/03/2020 10:47 EST Neut # 4.69 K/uL 12/03/2020 10:47 EST Lymph % 30.7 % 12/03/2020 10:47 EST Lymph # 2.60 K/uL 12/03/2020 10:47 EST [place] % 9.9 % 12/03/2020 10:47 EST [place] # 0.84 K/uL (High) 12/03/2020 10:47 EST Eos % 2.8 % 12/03/2020 10:47 EST Eos # 0.24 K/uL 12/03/2020 10:47 EST Baso % 0.8 % 12/03/2020 10:47 EST Baso # 0.07 K/uL 12/03/2020 10:47 EST Slide Review No 12/03/2020 10:47 EST IG# 0 x10(3)/uL 12/03/2020 10:47 EST IG% 0 % 12/03/2020 10:47 EST PT 10.8 Second(s) 12/03/2020 10:47 EST INR 1.0 12/03/2020 10:47 EST PTT 24.8 Second(s) 12/03/2020 10:47 EST Urine Type. U CleanCatch 12/03/2020 10:47 EST Urine Color YELLOW2 12/03/2020 10:47 EST Urine Appearance CLOUDY2 (Abnormal) 12/03/2020 10:47 EST Urine Specific [place] 1.019 12/03/2020 10:47 EST Urine pH Dipstick 6.0 12/03/2020 10:47 EST Urine Leukocyte Esterase NEGATIVE2 12/03/2020 10:47 EST Urine Nitrite NEGATIVE2 12/03/2020 10:47 EST Urine Protein Dipstick NEGATIVE2 12/03/2020 10:47 EST Urine Glucose Dipstick 100 (Abnormal) 12/03/2020 10:47 EST Urine Ketones Dipstick NEGATIVE2 12/03/2020 10:47 EST Urine Urobilinogen Dipstick 0.2 12/03/2020 10:47 EST Urine Bilirubin Dipstick NEGATIVE2 12/03/2020 10:47 EST Urine Blood Dipstick NEGATIVE2 12/03/2020 10:47 EST Ur RBC None Seen 12/03/2020 10:47 EST Ur WBC 0-2 12/03/2020 10:47 EST Ur Bacteria Trace (Abnormal) 12/03/2020 10:47 EST Ur Mucous Trace (Abnormal) 12/03/2020 10:47 EST Ur Squamous Epithelial Cells 10-20 (Abnormal) 12/03/2020 10:47 EST documented in this encounter Plan of Treatment Not on file documented as of this encounter Visit Diagnoses Not on filedocumented in this encounter
--- OUTSIDE RECORDS SUMMARY | 2025-04-28 13:49 | XMS_ITS | Clinical Summary ---
Author Organization [facility] [employer] [facility] Address [address] [place] [address] Care Team Providers Care Undercover Operator Name Role Phone Unavailable Primary Care Provider [...] Dates Next Due Covid-19 Vaccine MRNA(PF,Pre mixed)12YR+ (CloudHelix/Aptidata)([id number]) 01/05/2022,12/15/2021 Influenza Four-qiv Pf 12/15/2021,09/10/2020,08/22 Family History Medical History Relation Name Comments Clotting disorder Brother Diabetes Brother Diabetes Sister Relation Name Status Comments Brother Sister Alive Social History Tobacco Use Types Packs/Day Years [...] re latives? Once a week 10/03/2022 Attends [employer] Services Not on file 10/03 Active Member [...] Recorded Patient Health Questionnaire-2 Score 2 10/03/2022 [facility] - Occupational Stress Questionnaire Answer Date Recorded [...] place to sleep or slept in a prison (including now)? No 10/03/2022 Interpersonal Safety Answer [...] Date Raji rded Speak language other than Upper Sorbian at home Not on file 12/08/2023 Want [...] 10/03/2022 9:58 AM EST Plan of Treatment Health Maintenance Due Date Last Done Comments CT Colonography 1972 Colonoscopy 1972 Colorectal Cancer Screening 1972 FOBT/FIT 1972 Fit-DNA (Cologuard) 1972 Sigmoidoscopy 1972 Depression Screening (12+) 1984 HIV Screening 1987 Hepatitis C Screening 1990 DTAP/TDAP/TD VACCINES (1 - Tdap) 1991 Pneumococcal 50+ years (1 of 2 - PCV) 1991 Pap Smear 1993 Breast Cancer Screening 2012 Lipid Panel 2017 Shingles Vaccine (Zoster) (1 of 2) 2022 Tobacco Cessation Counseling and Screening (12+) 10/03/2023 10/03/2022 COVID-19 VACCINE ( season) 2024, 12/15/2021 Influenza Vaccine (Season Ended) 2025 Insurance [facility] DUAL COMPLETE MCR ADV
--- OUTSIDE RECORDS SUMMARY | 2025-04-28 13:49 | XMS_ITS | Encounter Summary ---
Author Organization Healthcare Address [address] [place] [address] Care Team Providers Care Crop Roller Name Role Phone Alessandra Garza DO Primary Care Provider [phone] Encounter Details Date Type Department Care Team (Late st Contact Info) Description 04/04/2025 Telephone [facility] Endocrinology [address] [place] [id number] Megan Pro, RN [facility] OPERATING ROOM Social History Tobacco Use Types Packs/Day Years [...] encounter Miscellaneous Notes * Telephone Encounter - Chayo Franks - 04/08/2025 9:38 AM EDT Returned patient's phone call, no answer, left v/m * Telephone Encounter - Chayo Franks - 04/07/2025 9:32 AM EDT Returned patient's phone call, no answer, left v/m * Telephone Encounter - Chayo Franks - 04/04/2025 4:08 PM EDT Returned patient's phone call, no answer, left v/m * Telephone Encounter - Megan Pro RN - 04/04/2025 1:46 PM EDT Patient is calling because she was seen yesterday and Humulin doses was changed and she is having ahard time getting Rx filled. She is requesting a call back. documented in this encounter Plan of Treatment Upcoming Encounters Date Type Department Care Team (Late st Contact Info) Description 07/24/2025 2:20 PM EDT Office Visit [facility] Endocrinology [address] [place] [id number] Bernadette Ledesma, REFRIGERATOR ROOM CLERK [address] [facility] [address] [place] [phone] documented as of this encounter Visit Diagnoses Not on filedocumented in this encounter Additional Health Concerns Assessment Noted Time A fall risk assessment has been complete d for the patient 05/20/2024 9:03 AM EDT A Body Mass Index follow-up plan has been documented for the patient 04/03/2025 1:52 PM EDT documented as of this encounter Care Teams Crop Roller Relationship Specialty Start Date End Date Alessandra Garza DO [address] [place] [address] PCP - General 04/02/21 documented as of this encounter
== END 2025-04-28 23:59 | disposition home or self-care (01) ==
LOC: RT 13:29
PROVIDERS: PCP Family Medicine; Visit Provider Nurse Practitioner Family
DX: I11.9 Hypertensive heart disease without heart failure (principal); R00.2 Palpitations; R94.31 Abnormal electrocardiogram [ECG] [EKG]; Z82.49 Family history of ischemic heart disease and other diseases of the circulatory system
CPT/HCPCS: 93306